=== PATIENT | male | born 1935 | race Caucasian/White ===

== ENCOUNTER 2018-08-09 08:54 | Emergency (ER) | payer BC, MEDICARE, OTHER ==
--- OUTSIDE RECORDS SUMMARY | 2018-08-09 09:15 | XMS REPORT ---
:1935 External Reference #:[id number] Author Organization [facility] Address [address], [address] [place] [address] Phone [phone] Care Team Providers Name Role Phone Cintia Dominguez MD Care Team Information Bar Host Unavailable Cintia Dominguez MD Primary Care Physician Unavailable Payers Type Date Identification Numbers Payment Provider Subscriber Medicare Primary Policy Number: [id number] Medicare Wale Mcnamara PayID: [id number] [address] [place] [address] [facility] Policy Number: [id number] [facility] Heather Mcnamara PayID: [id number] [address] [place] [address] Problems Date Description Provider Status Onset: 02/03/2013 Palpitations Everette Stevens MD, PhD Active Onset: 03/21/2018 Immunization Cintia Dominguez MD Active Onset: 03/21/2018 Hyperlipidemia Cintia Dominguez MD Active Onset: 02/01/2018 Acute bronchitis Yaniv Camejo M.D. Active Onset: 09/10/2017 Benign prostatic hypertrophy with Leah Wilson M.D. Active outflow obstruction Onset: 09/02/2017 Genaro hematuria Leah Wilson M.D. Active Onset: 08/31/2017 Hernia of anterior abdominal wall Fer Flores MD,FACS Active without obstruction AND without gangrene Onset: 07/19/2017 Electrocardiogram abnormal Dallas Laguerre M.D., Active FACC Onset: 07/30/2016 Cardiomyopathy, unspecified Dallas M. Davidenko, M.D., Active FACC Onset: 07/30/2016 Preoperative cardiovascular Dallas Laguerre M.D., Active examination FACC Onset: 06/01/2016 Left bundle branch block Dallas Laguerre M.D., Active FACC Onset: 05/10/2015 Benign essential hypertension Dallas Laguerre M.D., Active FACC Family History Date Family Member(s) Problem(s) Comments General No known family history of CAD. 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 Independent with all ADL's Cigarette Use 23 Years Quit Smokeless Tobacco Never Used Smokeless Tobacco ETOH Use Drinks 2 Alcoholic Beverages Per Day Smoking Patient is a former smoker Recreational Drug Use Marijuana Daily Caffeine Consumes on average 3 cups of regular coffee per day Daily Caffeine Consumes on average 3 cups of hot tea per day Allergies, Adverse Reactions, Alerts Date Description Reaction Status Severity Comments 01/31/2013 NKDA active Medications Medication Date Status Form Strength Qnty SIG Indications Ordering Provider Fleet Enema 07/07 Active Enema 7- 133ml 1 unit per K92.1 8ML rectum Alejo, once at MD night and once in morning Omeprazole 06/20 Active Capsules 40mg 30cap Take one R12 [place]in[place] DR jovan Chappell, MS, morning [employer]ERK-C, CNM (per pt. take bid at present) Drysol 12/14 Active Solution 20% 60ml apply to affected MD Angelica area every day Levocetirizine 04/07 Active Tablets 5mg 90tab 1 tab by Cintia Dihydrochloride s mouth MD Angelica daily as needed Benadryl Allergy 02/05 Active Capsules 25mg 60cap 2 tabs po Cintia s at hs MD Angelica Sumatriptan 07/15 Active Tablets 25mg 180ta one by Cintia Succinate bs mouth at MD Angelica onset of headache prodromal symptoms may repeat dose in 1 hour if needed Dicyclomine HCL 07/15 Active Capsules 10mg 360ca 1 cap by Cintia /2015 ps mouth MD Angelica every 6 h as needed for abdominal pain Metoprolol Active Tablets 50mg 90tab 1 tab by R00.2 Cintia Succinate ER /0000 ER 24HR s mouth MD Angelica every day Aspirin Active Tablets 325mg as needed Unknown DR Ipratropium Active Solution 0.03% [place] 2 Unknown [place] Sprays In Each Nostril Every Day prn Tamsulosin HCL Active Capsules 0.4mg 90cap take one Cintia s capsule by MD Angelica mouth every day Fish Oil Active Capsules 600mg 1 cap by Unknown mouth daily Metamucil Free & Active Powder 43% 1 table Unknown Natural spoon with 12 ounces water daily per pt as needed Doxycycline 04/07 Hx Capsules 100mg 2caps 2 cap by Cintia Monohydrate mouth once MD Angelica - 06/17 Cefuroxime Axetil 02/01 Hx Tablets 500mg 14tab 1 tab by J20.9 Yaniv s mouth Nell, - twice a M.D. Omeprazole 07/08 Hx Capsules 20mg 90cap [address] aldana every day Yumiko Dhillon MD 06/20 Lidocaine Viscous 07/08 Hx Solution 2% 600ml 1 unit apply to Yumiko Dhillon MD 08/31 area a day as needed Citroma 06/15 Hx Solution 1.745GM/3 296ml drink 1 K62.5 0ML bottle at Alejo 12pm (noon)the day before the procedure Dulcolax 06/15 Hx Tablets 5mg 4tabs [address] dona Dhillon 8pm the MD day before the procedure Golytely 06/15 Hx Solution 236gm 4000m drink half Rec l the Alejo evening before and half the morning of the procedure (1 cup every 10') Omeprazole 04/07 Hx Capsules 40mg 1 by mouth Cintia every day MD Angelica - 07/08 Azelastine HCL 12/14 Hx Solution 0.1% 30ml 1-2 sprays Cintia (Nasal) in both AngelicaMD jeramie - nasal 04/07 as needed Ventolin HFA 09/16 Hx Aerosol 108(90Bas 8gm 1-2 puffs e) every 4-6 MD Angelica mcg/Act hours as needed for cough and shortness of breath Levocetirizine 07/15 Hx Tablets 5mg 90tab 1 tab by Cintia Dihydrochlor s mouth MD Angelica - daily 04/07 Metoprolol 09/14 Hx Tablets 50mg 180ta 1/2 po qd 785.1 Everette L Succinate ER ER 24HR bs MD Hilda, PhD Aspirin Ec 02/03 Hx Tablets 325mg 1 po as Everette L DR Dong Stevens MD, PhD Metoprolol 02/03 Hx Tablets 25mg 90tab 1 po qd 785.1 Everette L Succinate ER 24HR s MD Hilda, - PhD 09/14 Omeprazole Hx Capsules 20mg 90cap 1 by mouth Cintia /0000 DR s every day MD Angelica - 04/07 Viagra Hx Tablets 25mg prn Unknown /0000 Finasteride Hx Tablets 5mg 30tab 1 po qd Unknown /0000 s Tamsulosin HCL Hx Capsules 0.4mg po qd Unknown /0000 Levocetirizine Hx Tablets 5mg po qd Unknown Dihydrochloride /0000 Aleve Hx Capsules 220mg prn Unknown /0000 - 06/20 Benadryl Hx Capsules 25mg 2 tabs po Unknown /0000 at hs - 02/05 Multivitamins Hx Tablets 1 po qd Unknown /0000 Fish Oil 00 Hx Capsules 1200mg by mouth Unknown /0000 qd Flomax 00 Hx Capsules 0.4mg by mouth Unknown /0000 every day - 07/15 Tamsulosin HCL Hx Capsules 0.4mg 90cap 1 caps by Cintia /0000 s mouth MD Angelica - every day 04/07 Sumatriptan Hx Tablets 25mg one by Unknown Succinate /0000 mouth at onset of headache prodromal symptoms may repeat dose in 1 hour if needed Immunizations CPT Code Status Date Vaccine Lot # [id number] Given 03/21/2018 Tdap injection [id number] Given 09/15/2017 Influenza Vaccine Split Virus Preservative Free Im [id number] Use [id number] Given 09/16/2016 Influenza Vaccine (Fluzone) Age 3 And Older [id number] Vital Signs Date Vital Result Comment 07/07/2018 BP Systolic Sitting Left Arm 145 mmHg BP Diastolic Sitting Left Arm 81 mmHg Heart Rate 66 /min Respiratory Rate 16 /min Height 68 inches 5'8" Weight 209.00 lb BMI (Body Mass Index) 31.8 kg/m2 BSA (Body Surface Area) 2.08 m2 [place] body weight in kilograms 70 O2 % BldC Oximetry 95 % 06/17/2018 BP Systolic Sitting Left Arm 132 mmHg BP Diastolic Sitting Left Arm 74 mmHg Body Temperature 98.1 F Heart Rate 63 /min Respiratory Rate 18 /min Height 68 inches 5'8" Weight 210.00 lb BMI (Body Mass Index) 31.9 kg/m2 BSA (Body Surface Area) 2.09 m2 [place] body weight in kilograms 70 O2 % BldC Oximetry 98 % Ra 03/22/2018 BP Systolic Sitting Left Arm 158 mmHg BP Diastolic Sitting Left Arm 66 mmHg Body Temperature 97.9 F Heart Rate 64 /min Respiratory Rate 14 /min Weight 212.00 lb O2 % BldC Oximetry 96 % Pain Level 0 03/21/2018 BP Systolic Sitting Right Arm 122 mmHg BP Diastolic Sitting Right Arm 69 mmHg Heart Rate 54 /min Respiratory Rate 20 /min Height 68 inches 5'8" Weight 208.00 lb BMI (Body Mass Index) 31.6 kg/m2 BSA (Body Surface Area) 2.08 m2 [place] body weight in kilograms 70 02/01/2018 BP Systolic Sitting Right Arm 120 mmHg manual BP Diastolic Sitting Right Arm 64 mmHg manual Body Temperature 97.6 F Heart Rate 56 /min Respiratory Rate 18 /min Height 68 inches 5'8" Weight 209.00 lb BMI (Body Mass Index) 31.8 kg/m2 BSA (Body Surface Area) 2.08 m2 [place] body weight in kilograms 70 O2 % BldC Oximetry 94 % Ra 09/15/2017 BP Systolic 146 mmHg BP Diastolic 78 mmHg Heart Rate 57 /min Height 68 inches 5'8" Weight 210.38 lb BMI (Body Mass Index) 32.0 kg/m2 BSA (Body Surface Area) 2.09 m2 [place] body weight in kilograms 70 09/10/2017 BP Systolic 151 mmHg BP Diastolic 75 mmHg Body Temperature 97.0 F 36.1c Heart Rate 66 /min Respiratory Rate 20 /min O2 % BldC Oximetry 94 % 09/02/2017 BP Systolic 123 mmHg BP Diastolic 66 mmHg Body Temperature 97.3 F 36.3c Heart Rate 69 /min Respiratory Rate 18 /min Height 68 inches 5'8" Weight 212.25 lb BMI (Body Mass Index) 32.3 kg/m2 BSA (Body Surface Area) 2.10 m2 [place] body weight in kilograms 70 O2 % BldC Oximetry 96 % 08/31/2017 BP Systolic 118 mmHg BP Diastolic 78 mmHg Height 68 inches 5'8" Weight 211.00 lb BMI (Body Mass Index) 32.1 kg/m2 BSA (Body Surface Area) 2.09 m2 [place] body weight in kilograms 70 08/25/2017 BP Systolic Sitting Right Arm 106 mmHg BP Diastolic Sitting Right Arm 80 mmHg Body Temperature 97.5 F Heart Rate 43 /min Height 68 inches 5'8" Weight 207.00 lb BMI (Body Mass Index) 31.5 kg/m2 BSA (Body Surface Area) 2.07 m2 [place] body weight in kilograms 70 07/19/2017 BP Systolic Sitting Left Arm 132 mmHg BP Diastolic Sitting Left Arm 72 mmHg Heart Rate 54 /min Respiratory Rate 16 /min Height 68 inches 5'8" Weight 209.00 lb BMI (Body Mass Index) 31.8 kg/m2 BSA (Body Surface Area) 2.08 m2 [place] body weight in kilograms 70 07/08/2017 BP Systolic Sitting Left Arm 122 mmHg BP Diastolic Sitting Left Arm 80 mmHg Heart Rate 76 /min Respiratory Rate 16 /min Height 68 inches 5'8" Weight 210.00 lb BMI (Body Mass Index) 31.9 kg/m2 BSA (Body Surface Area) 2.09 m2 [place] body weight in kilograms 70 06/15/2017 BP Systolic Lying Down Resting Right Arm 130 mmHg BP Diastolic Lying Down Resting Right Arm 82 mmHg Heart Rate 46 /min Respiratory Rate 16 /min Height 68 inches 5'8" Weight 209.00 lb BMI (Body Mass Index) 31.8 kg/m2 BSA (Body Surface Area) 2.08 m2 [place] body weight in kilograms 70 04/07/2017 BP Systolic 124 mmHg irregular BP Diastolic 68 mmHg irregular Heart Rate 58 /min irregular Respiratory Rate 16 /min Height 68 inches 5'8" Weight 208.00 lb with shoes BMI (Body Mass Index) 31.6 kg/m2 BSA (Body Surface Area) 2.08 m2 [place] body weight in kilograms 70 O2 % BldC Oximetry 94 % 09/16/2016 BP Systolic 112 mmHg BP Diastolic 66 mmHg Heart Rate 60 /min Height 68 inches 5'8" Weight 213.00 lb BMI (Body Mass Index) 32.4 kg/m2 BSA (Body Surface Area) 2.10 m2 07/30/2016 BP Systolic Sitting Right Arm 110 mmHg BP Diastolic Sitting Right Arm 76 mmHg Heart Rate 56 /min Height 68 inches 5'8" Weight 212.00 lb BMI (Body Mass Index) 32.2 kg/m2 BSA (Body Surface Area) 2.09 m2 07/22/2016 BP Systolic 118 mmHg BP Diastolic 72 mmHg Body Temperature 96.7 F Height 68 inches 5'8" Weight 208.00 lb BMI (Body Mass Index) 31.6 kg/m2 BSA (Body Surface Area) 2.08 m2 O2 % BldC Oximetry 98 % 07/15/2016 BP Systolic Sitting Right Arm 124 mmHg BP Diastolic Sitting Right Arm 70 mmHg Respiratory Rate 90 /min Height 68 inches 5'8" Weight 214.38 lb BMI (Body Mass Index) 32.6 kg/m2 BSA (Body Surface Area) 2.10 m2 O2 % BldC Oximetry 98 % 06/01/2016 BP Systolic Sitting Right Arm 122 mmHg BP Diastolic Sitting Right Arm 70 mmHg Heart Rate 53 /min Respiratory Rate 16 /min Height 68 inches 5'8" Weight 213.00 lb BMI (Body Mass Index) 32.4 kg/m2 BSA (Body Surface Area) 2.10 m2 05/10/2015 BP Systolic Sitting Left Arm 130 mmHg BP Diastolic Sitting Left Arm 72 mmHg Heart Rate 68 /min Respiratory Rate 14 /min Height 68 inches 5'8" Weight 207.00 lb BMI (Body Mass Index) 31.5 kg/m2 BSA (Body Surface Area) 2.07 m2 11/01/2014 BP Systolic Sitting Right Arm 114 mmHg BP Diastolic Sitting Right Arm 62 mmHg Heart Rate 54 /min Respiratory Rate 16 /min Height 68 inches 5'8" Weight 205.00 lb BMI (Body Mass Index) 31.2 kg/m2 BSA (Body Surface Area) 2.07 m2 04/26/2014 BP Systolic Sitting Left Arm 112 mmHg BP Diastolic Sitting Left Arm 72 mmHg Heart Rate 62 /min Respiratory Rate 16 /min Height 68 inches 5'8" Weight 201.00 lb BMI (Body Mass Index) 30.6 kg/m2 BSA (Body Surface Area) 2.05 m2 12/06/2013 BP Systolic Sitting Right Arm 110 mmHg BP Diastolic Sitting Right Arm 68 mmHg Heart Rate 60 /min Respiratory Rate 16 /min Height 68 inches 5'8" Weight 203.00 lb BMI (Body Mass Index) 30.9 kg/m2 BSA (Body Surface Area) 2.06 m2 10/30/2013 BP Systolic Sitting Right Arm 134 mmHg BP Diastolic Sitting Right Arm 80 mmHg Heart Rate 60 /min Respiratory Rate 16 /min Height 68 inches 5'8" Weight 205.00 lb BMI (Body Mass Index) 31.2 kg/m2 BSA (Body Surface Area) 2.07 m2 09/14/2013 BP Systolic Sitting Left Arm 144 mmHg BP Diastolic Sitting Left Arm 64 mmHg Heart Rate 72 /min Respiratory Rate 16 /min Height 68 inches 5'8" Weight 209.00 lb BMI (Body Mass Index) 31.8 kg/m2 BSA (Body Surface Area) 2.08 m2 03/16/2013 BP Systolic Sitting Right Arm 138 mmHg BP Diastolic Sitting Right Arm 60 mmHg Heart Rate 70 /min Respiratory Rate 16 /min Height 68 inches 5'8" Weight 200.00 lb BMI (Body Mass Index) 30.4 kg/m2 BSA (Body Surface Area) 2.04 m2 02/03/2013 BP Systolic Sitting Right Arm 140 mmHg BP Diastolic Sitting Right Arm 72 mmHg Heart Rate 70 /min Respiratory Rate 16 /min Height 68 inches 5'8" Weight 197.00 lb BMI (Body Mass Index) 30.0 kg/m2 BSA (Body Surface Area) 2.03 m2 Results Test Date Test Result H/L Range Note Laboratory test finding 07/07/2018 Lipase 148 U/L 56-289 1 Celiac Disease Comp AB Profile 07/07/2018 Immunoglobulin A 205 mg/dL 61- 437 1, 2 Antigliadin Abs, IgG 2 units 0-19 1, 3 Antigliadin Abs, IgA 5 units 0-19 1, 4 Endomysial IgA Antibody Negative Negative 1 t-Transglutaminase IgA <2 U/mL 0-3 1, 5 t-Transglutaminase IgG <2 U/mL 0-5 1, 6 Laboratory test finding 07/07/2018 Sedimentation Rate 28 mm/hr High 0-20 1, 7 CBS W/Automated Diff 06/17/2018 White Blood Count 6.1 K/uL 3.4-10.5 1 Red Blood Count 4.60 M/uL 4.20-5.80 1 Hemoglobin 14.5 gm/dL 12.8-17.0 1 Hematocrit 42.4 % 38.0-48.0 1 Mean Cell Volume 92.2 fl 80.0-96.0 1 Mean Corpuscular HGB 31.5 pg 27.0-33.0 1 Mean Corpuscular HGB Conc 34.2 g/dL 31.7-36.0 1 Platelet Count 207 K/uL 155-360 1 Red Cell Distri Width SD 46.7 fl 36-51 1 Red Cell Distri Width %CV 14.0 % 11.6-15.8 1 Mean Platelet Volume 9.9 fL 6.6-10.6 1 Neut% 49.3 % 33.0-73.0 1 Lymph % 36.4 % 20.0-42.0 1 [place] % 11.3 % High 0.0-10.0 1 Eo% 2.8 % 0.0-6.6 1 Bas% 0.2 % 0.0-1.1 1 Neut# 3.03 K/uL 1.8-7.0 1 Lymph # 2.23 K/uL 1.0-4.0 1 [place] # 0.69 K/uL 0.0-0.8 1 Eos # 0.17 K/uL 0.0-0.5 1 Baso # 0.01 K/uL 0.0-0.1 1 Comprehensive Metabolic Panel 06/17/2018 Glucose 107 mg/dL High 74-106 1 BUN 25 mg/dL High 7-18 1 Creatinine 1.1 mg/dL 0.6-1.3 1 Glom Filtration Rate, Estimate >60 mL/min >60 1 If >60 mL/min >60 1, 8 BUN/Creat 22.7 ratio 1 Sodium 144 mmol/L 136-145 1 Potassium 4.4 mmol/L 3.5-5.1 1 Chloride 111 mmol/L High 98-107 1 Carbon Dioxide 25 mmol/L 21-32 1 Anion Gap 8 mEq/L 8-16 1 Calcium 8.9 mg/dL 8.5-10.1 1 Total Protein 7.6 g/dL 6.4-8.2 1 Albumin 3.9 g/dL 3.4-5.0 1 Globulin 3.7 g/dL 1.9-4.3 1 Alb/Glob 1.1 ratio 1 Bilirubin,Total 0.4 mg/dL 0.2-1.0 1 Sgot/Ast 20 U/L 15-37 1 SGPT/Alt 19 U/L 12-78 1 Alkaline Phosphatase 62 U/L 45-117 1 Protime 06/17/2018 Protime 13.7 seconds 12.0-14.4 1 Inr 1.1 0.9-1.1 1, 9 Laboratory test finding 06/17/2018 Act Partial 26.8 seconds 23.4-35.0 1 , 10 Thrombo Time Comprehensive Metabolic 03/11/2018 Glucose 104 mg/dL 74-106 11 Panel BUN 20 mg/dL High 7-18 11 Creatinine 1.0 mg/dL 0.6-1.3 11 Glom Filtration Rate, Estimate >60 mL/min >60 11 If >60 mL/min >60 11, 12 BUN/Creat 20.0 ratio 11 Sodium 140 mmol/L 136-145 11 Potassium 4.1 mmol/L 3.5-5.1 11 Chloride 108 mmol/L High 98-107 11 Carbon Dioxide 24 mmol/L 21-32 11 Anion Gap 8 mEq/L 8-16 11 Calcium 8.7 mg/dL 8.5-10.1 11 Total Protein 7.5 g/dL 6.4-8.2 11 Albumin 3.7 g/dL 3.4-5.0 11 Globulin 3.8 g/dL 1.9-4.3 11 Alb/Glob 1.0 ratio 11 Bilirubin,Total 0.5 mg/dL 0.2-1.0 11 Sgot/Ast 19 U/L 15-37 11 SGPT/Alt 18 U/L 12-78 11 Alkaline Phosphatase 51 U/L 45-117 11 LDL Cholesterol Profile 03/11/2018 Cholesterol 148 mg/dL <200 11, 13 Triglycerides 77 mg/dL <150 11, 14 HDL Cholesterol 55 mg/dL >40 11, 15 LDL-Cholesterol 78 mg/dL < 100 11, 16 CBS W/Automated Diff 03/11/2018 White Blood Count 5.9 K/uL 3.4-10.5 11 Red Blood Count 4.71 M/uL 4.20-5.80 11 Hemoglobin 14.8 gm/dL 12.8-17.0 11 Hematocrit 42.7 % 38.0-48.0 11 Mean Cell Volume 90.7 fl 80.0-96.0 11 Mean Corpuscular HGB 31.4 pg 27.0-33.0 11 Mean Corpuscular HGB Conc 34.7 g/dL 31.7-36.0 11 Platelet Count 186 K/uL 155-360 11 Red Cell Distri Width SD 45.2 fl 36-51 11 Red Cell Distri Width %CV 14.1 % 11.6-15.8 11 Mean Platelet Volume 10.4 fL 6.6-10.6 11 Neut% 45.5 % 33.0-73.0 11 Lymph % 40.4 % 20.0-42.0 11 [place] % 10.5 % High 0.0-10.0 11 Eo% 3.4 % 0.0-6.6 11 Bas% 0.2 % 0.0-1.1 11 Neut# 2.70 K/uL 1.8-7.0 11 Lymph # 2.39 K/uL 1.0-4.0 11 [place] # 0.62 K/uL 0.0-0.8 11 Eos # 0.20 K/uL 0.0-0.5 11 Baso # 0.01 K/uL 0.0-0.1 11 Laboratory test finding 09/02/2017 Prostate Specific 1.82 ng/mL < 4.0 17 , 18 Antigen Slide Review (SEE NOTE) 17, 19 LDL Cholesterol Profile 09/02/2017 Cholesterol 136 mg/dL <200 17, 20 Triglycerides 174 mg/dL High <150 17, 21 HDL Cholesterol 50 mg/dL >40 17, 22 LDL-Cholesterol 51 mg/dL < 100 17, 23 CBS W/Automated Diff 09/02/2017 White Blood Count 5.4 K/uL 3.4-10.5 17 Red Blood Count 4.63 M/uL 4.20-5.80 17 Hemoglobin 14.5 gm/dL 12.8-17.0 17 Hematocrit 42.5 % 38.0-48.0 17 Mean Cell Volume 91.8 fl 80.0-96.0 17 Mean Corpuscular HGB 31.3 pg 27.0-33.0 17 Mean Corpuscular HGB Conc 34.1 g/dL 31.7-36.0 17 Platelet Count 202 K/uL 150-400 17 Red Cell Distri Width SD 45.2 fl 36-51 17 Red Cell Distri Width %CV 13.8 % 11.6-15.8 17 Mean Platelet Volume 9.6 fL 6.6-10.6 17 Neut% 59.8 % 33.0-73.0 17 Lymph % 25.9 % 20.0-42.0 17 [place] % 11.5 % High 0.0-10.0 17 Eo% 2.6 % 0.0-6.6 17 Bas% 0.2 % 0.0-1.1 17 Neut# 3.24 K/uL 1.8-7.0 17 Lymph # 1.40 K/uL 1.0-4.0 17 [place] # 0.62 K/uL 0.0-0.8 17 Eos # 0.14 K/uL 0.0-0.5 17 Baso # 0.01 K/uL 0.0-0.1 17 Comprehensive Metabolic Panel 09/02/2017 Glucose 114 mg/dL High 74-106 17 BUN 22 mg/dL High 7-18 17 Creatinine 1.2 mg/dL 0.6-1.3 17 Glom Filtration Rate, Estimate >60 mL/min >60 17 If >60 mL/min >60 17, 24 BUN/Creat 18.3 ratio 17 Sodium 140 mmol/L 136-145 17 Potassium 4.4 mmol/L 3.5-5.1 17 Chloride 109 mmol/L High 98-107 17 Carbon Dioxide 25 mmol/L 21-32 17 Anion Gap 6 mEq/L Low 8-16 17 Calcium 8.5 mg/dL 8.5-10.1 17 Total Protein 7.2 g/dL 6.4-8.2 17 Albumin 3.4 g/dL 3.4-5.0 17 Globulin 3.8 g/dL 1.9-4.3 17 Alb/Glob 0.9 ratio 17 Bilirubin,Total 0.4 mg/dL 0.2-1.0 17 Sgot/Ast 15 U/L 15-37 17 SGPT/Alt 18 U/L 12-78 17 Alkaline Phosphatase 58 U/L 45-117 17 Ua Routine 08/25/2017 Urine Color YELLOW Yellow Urine Clarity CLEAR Clear Urine Glucose - Dipstick NEGATIVE mg/dL Negative Urine Bilirubin - Dipstick NEGATIVE Negative Urine Ketone NEGATIVE mg/dL Negative Urine Specific [place] 1.020 1.010-1.030 Urine Blood SMALL Negative Urine PH 5.5 Low 6.5-7.5 Urine Protein - Dipstick NEGATIVE mg/dL Negative Urine Urobilinogen - Dipstick 0.2 E.U./dL 0.2-1.0 Urine Nitrite - Dipstick NEGATIVE Negative Urine Leuk Esterase NEGATIVE Negative Urine RBC 5-10 rbc/hpf High 0-2 Urine WBC 0-2 wbc/hpf 0-7 Urine Epithelial Cells VERY FEW /lpf None Seen Urine Bacteria FEW None Seen Source: URINE, CLEAN CAT <SEE NOTE> 25 Throat Culture Complete 04/08/2017 Throat Culture NORMAL THROAT FL 26, 27 Complete <SEE NOTE> Comprehensive Metabolic 09/25/2016 Glucose 97 mg/dL 74-106 28 Panel BUN 23 mg/dL High 7-18 28 Creatinine 1.1 mg/dL 0.6-1.3 28 Glom Filtration Rate, Estimate >60 mL/min >60 28 If >60 mL/min >60 28, 29 BUN/Creat 20.9 ratio 28 Sodium 143 mmol/L 136-145 28 Potassium 4.2 mmol/L 3.5-5.1 28 Chloride 111 mmol/L High 98-107 28 Carbon Dioxide 24 mmol/L 21-32 28 Anion Gap 8 mEq/L 8-16 28 Calcium 9.0 mg/dL 8.5-10.1 28 Total Protein 7.5 g/dL 6.4-8.2 28 Albumin 3.7 g/dL 3.4-5.0 28 Globulin 3.8 g/dL 1.9-4.3 28 Alb/Glob 1.0 ratio 28 Bilirubin,Total 0.5 mg/dL 0.2-1.0 28 Sgot/Ast 17 U/L 15-37 28 SGPT/Alt 17 U/L 12-78 28 Alkaline Phosphatase 56 U/L 45-117 28 CBS W/Automated Diff 09/25/2016 White Blood Count 4.8 K/uL 3.4-10.5 28 Red Blood Count 4.76 M/uL 4.20-5.80 28 Hemoglobin 14.5 gm/dL 12.8-17.0 28 Hematocrit 43.1 % 38.0-48.0 28 Mean Cell Volume 90.5 fl 80.0-96.0 28 Mean Corpuscular HGB 30.5 pg 27.0-33.0 28 Mean Corpuscular HGB Conc 33.6 g/dL 31.7-36.0 28 Platelet Count 191 K/uL 150-400 28 Red Cell Distri Width SD 43.9 fl 36-51 28 Red Cell Distri Width %CV 13.8 % 11.6-15.8 28 Mean Platelet Volume 10.3 fL 6.6-10.6 28 Neut% 49.1 % 33.0-73.0 28 Lymph % 35.9 % 17.0-56.0 28 [place] % 10.6 % High 0.0-10.0 28 Eo% 4.0 % 0.0-5.0 28 Bas% 0.4 % 0.1-1.0 28 Neut# 2.35 K/uL 1.8-7.0 28 Lymph # 1.72 K/uL Low 1.8-7.0 28 [place] # 0.51 K/uL 0.0-0.8 28 Eos # 0.19 K/uL 0.0-0.5 28 Baso # 0.02 K/uL Low 0.1-0.2 28 LDL Cholesterol Profile 09/25/2016 Cholesterol 161 mg/dL <200 28, 30 Triglycerides 84 mg/dL <150 28, 31 HDL Cholesterol 56 mg/dL >40 28, 32 LDL-Cholesterol 88 mg/dL < 100 28, 33 Glycohemoglobin A1c 09/25/2016 Glycohemoglobin (A1c) 5.6 % 4.2-6.3 28, 34 eAG 114 mg/dL 28 Laboratory test finding 09/25/2016 Prostate Specific 1.69 ng/mL < 4.0 28 , 35 Antigen Comprehensive Metabolic 06/22/2016 Glucose 120 mg/dL High 74-106 Panel BUN 20 mg/dL High 7-18 Creatinine 1.1 mg/dL 0.6-1.3 Glom Filtration Rate, Estimate >60 mL/min >60 If >60 mL/min >60 36 BUN/Creat 18.1 ratio Sodium 143 mmol/L 136-145 Potassium 3.9 mmol/L 3.5-5.1 Chloride 110 mmol/L High 98-107 Carbon Dioxide 24 mmol/L 21-32 Anion Gap 9 mEq/L 8-16 Calcium 8.2 mg/dL Low 8.5-10.1 Total Protein 7.1 g/dL 6.4-8.2 Albumin 3.4 g/dL 3.4-5.0 Globulin 3.7 g/dL 1.9-4.3 Alb/Glob 0.9 ratio Bilirubin,Total 0.3 mg/dL 0.2-1.0 Sgot/Ast 20 U/L 15-37 SGPT/Alt 21 U/L 12-78 Alkaline Phosphatase 59 U/L 45-117 Laboratory test finding 06/22/2016 CK 67 U/L 39-308 Troponin-I < 0.015 ng/mL 37 CBC W/Automated Diff 06/22/2016 White Blood Count 5.5 K/uL 3.4-10.5 Red Blood Count 4.32 M/uL 4.20-5.80 Hemoglobin 13.5 gm/dL 12.8-17.0 Hematocrit 39.8 % 38.0-48.0 Mean Cell Volume 92.1 fl 80.0-96.0 Mean Corpuscular HGB 31.3 pg 27.0-33.0 Mean Corpuscular HGB Conc 33.9 g/dL 31.7-36.0 Platelet Count 196 K/uL 150-400 Red Cell Distri Width SD 44.4 fl 36-51 Red Cell Distri Width %CV 13.6 % 11.6-15.8 Mean Platelet Volume 9.7 fL 6.6-10.6 Neut% 52.4 % 33.0-73.0 Lymph % 33.3 % 17.0-56.0 [place] % 9.9 % 0.0-10.0 Eo% 4.2 % 0.0-5.0 Bas% 0.2 % 0.1-1.0 Neut# 2.86 K/uL 1.8-7.0 Lymph # 1.82 K/uL 1.8-7.0 [place] # 0.54 K/uL 0.0-0.8 Eos # 0.23 K/uL 0.0-0.5 Baso # 0.01 K/uL Low 0.1-0.2 1 K92.1 2 Performed at: RN - [facility] [address] [id number] Orthopedic Rn: Moraima Macdonald MD, Phone: [phone] 3 Negative 0 - 19 Weak Positive 20 - 30 Moderate to Strong Positive >30 4 Negative 0 - 19 Weak Positive 20 - 30 Moderate to Strong Positive >30 5 Negative 0 - 3 Weak Positive 4 - 10 Positive >10 Tissue Transglutaminase (tTG) has been identified as the endomysial antigen. Studies have demonstr- ated that endomysial IgA antibodies have over 99% specificity for gluten sensitive enteropathy. 6 Negative 0 - 5 Weak Positive 6 - 9 Positive >9 7 Method: Sediplast Modified Westergren 8 Note: Persistent reduction for 3 months or more in an eGFR <60 mL/min/1.73 m2 defines CKD. Patients with eGFR values >/=60 mL/min/1.73 m2 may also have CKD if evidence of persistent proteinuria is present. The original MDRD equation for estimated GFR is not valid for patients less than 18 years of age. Additional information may be found at [email or web address]. 9 THERAPEUTIC INR RANGE: 2.0 - 3.0 DVT, Pulmonary embolus, prophylaxis against venous thrombosis or systemic embolization in high risk patients. 2.5 - 3.5 Mechanical heart valves 10 Is patient on heparin protocol? N Is patient on anticoagulants? None 11 E78.5 N40.1 12 Note: Persistent reduction for 3 months or more in an eGFR <60 mL/min/1.73 m2 defines CKD. Patients with eGFR values >/=60 mL/min/1.73 m2 may also have CKD if evidence of persistent proteinuria is present. The original MDRD equation for estimated GFR is not valid for patients less than 18 years of age. Additional information may be found at www.kdoqi.org. 13 Reference Guidelines*: Desirable: ........... < 200 mg/dL Borderline High: ..... 200-239 mg/dL High: ................ >=240 mg/dL * The National Cholesterol Education Program (NCEP) 14 Reference Guidelines*: Normal: ............. < 150 mg/dL Borderline High: .... 150-199 mg/dL High: ............... 200-499 mg/dL Very High: .......... > 500 mg/dL * Source: National Cholesterol Education Program (NCEP) 15 Reference Guidelines*: Low HDL: ..... < 40 mg/dL Normal: ..... 40-60 mg/dL Desirable: ... > 60 mg/dL *The National Cholesterol Education Program(NCEP) 16 Reference Guidelines*: Optimal:........... <100 mg/dL Near Optimal....... 100-129 mg/dL Borderline High.... 130-159 mg/dL High............... 160-189 mg/dL Very High.......... >=190 mg/dL * Source: National Cholesterol Education Program (NCEP) 17 I10,N40.0,J44.9.I42.9 18 THIS ASSAY IS NOT INTENDED A CANCER SCREENING TEST The concentration of PSA in a given specimen, determined with assays from different manufacturers, can vary due to differences in assay methods and reagent specificity. Values obtained from different assay methods cannot be used interchangeably. Method: [employer] [place] Chemiluminescent immunoassay. 19 Instrument flagged sample for slide review. Less than 10% Bands seen, no other immature WBC's seen. RBC morphology essentially normal. Platelet estimate=NormaL 20 Reference Guidelines*: Desirable: ........... < 200 mg/dL Borderline High: ..... 200-239 mg/dL High: ................ >=240 mg/dL * The National Cholesterol Education Program (NCEP) 21 Reference Guidelines*: Normal: ............. < 150 mg/dL Borderline High: .... 150-199 mg/dL High: ............... 200-499 mg/dL Very High: .......... > 500 mg/dL * Source: National Cholesterol Education Program (NCEP) 22 Reference Guidelines*: Low HDL: ..... < 40 mg/dL Normal: ..... 40-60 mg/dL Desirable: ... > 60 mg/dL *The National Cholesterol Education Program(NCEP) 23 Reference Guidelines*: Optimal:........... <100 mg/dL Near Optimal....... 100-129 mg/dL Borderline High.... 130-159 mg/dL High............... 160-189 mg/dL Very High.......... >=190 mg/dL * Source: National Cholesterol Education Program (NCEP) 24 Note: Persistent reduction for 3 months or more in an eGFR <60 mL/min/1.73 m2 defines CKD. Patients with eGFR values >/=60 mL/min/1.73 m2 may also have CKD if evidence of persistent proteinuria is present. The original MDRD equation for estimated GFR is not valid for patients less than 18 years of age. Additional information may be found at www.kdoqi.org. 25 URINE, CLEAN CATCH 26 J30.9 J02.9 27 NORMAL THROAT AUDI 28 I42.9 I10 N40.0 I44.7 29 Note: Persistent reduction for 3 months or more in an eGFR <60 mL/min/1.73 m2 defines CKD. Patients with eGFR values >/=60 mL/min/1.73 m2 may also have CKD if evidence of persistent proteinuria is present. The original MDRD equation for estimated GFR is not valid for patients less than 18 years of age. Additional information may be found at www.kdoqi.org. 30 Reference Guidelines*: Desirable: ........... < 200 mg/dL Borderline High: ..... 200-239 mg/dL High: ................ >=240 mg/dL * The National Cholesterol Education Program (NCEP) 31 Reference Guidelines*: Normal: ............. < 150 mg/dL Borderline High: .... 150-199 mg/dL High: ............... 200-499 mg/dL Very High: .......... > 500 mg/dL * Source: National Cholesterol Education Program (NCEP) 32 Reference Guidelines*: Low HDL: ..... < 40 mg/dL Normal: ..... 40-60 mg/dL Desirable: ... > 60 mg/dL *The National Cholesterol Education Program(NCEP) 33 Reference Guidelines*: Optimal:........... <100 mg/dL Near Optimal....... 100-129 mg/dL Borderline High.... 130-159 mg/dL High............... 160-189 mg/dL Very High.......... >=190 mg/dL * Source: National Cholesterol Education Program (NCEP) 34 Elevated levels of HbA1c suggest the need for more aggressive treatment of glycemia. The [place] [employer] recommends that a primary goal of therapy should be a HbA1c of <7% and that physicians should re-evaluate the treatment regimen in patients with HbA1c values consistently >8%. 35 THIS ASSAY IS NOT INTENDED A CANCER SCREENING TEST The concentration of PSA in a given specimen, determined with assays from different manufacturers, can vary due to differences in assay methods and reagent specificity. Values obtained from different assay methods cannot be used interchangeably. Method: [employer] Chemiluminescent immunoassay. 36 Note: Persistent reduction for 3 months or more in an eGFR <60 mL/min/1.73 m2 defines CKD. Patients with eGFR values >/=60 mL/min/1.73 m2 may also have CKD if evidence of persistent proteinuria is present. The original MDRD equation for estimated GFR is not valid for patients less than 18 years of age. Additional information may be found at www.kdoqi.org. 37 0.0 - 0.045 ng/mL: Normal 0.046 - 0.5 ng/mL: Suggestive 0.6 - 1.5 ng/mL: Consistent Procedures Date CPT Code Description Status Comment 03/22/2018 89841 Measurement Post Voiding Completed Residual Urine By Ultrasound,Non-Imaging 03/22/2018 45030 complex uroflowmetry Completed electronic 09/10/2017 61944 Cystoscopy Completed 09/10/2017 60102 Measurement Post Voiding Completed Residual Urine By Ultrasound,Non-Imaging 09/10/2017 71296 complex uroflowmetry Completed electronic 07/05/2017 43041 Hemorrhoidectomy, single Completed ligature 07/05/2017 05021 Colonoscopy Completed 07/05/2017 68982 EGD With Biopsy Completed 06/15/2017 30636 Anoscopy Completed 10/05/2016 99955 Bronchospasm Provocation Completed Evaluation Multi Spirometric Determinati 10/05/2016 10155 Spirometry Completed 10/05/2016 24855 Spirometry Completed 09/25/2016 84229 Bronchospasm Provocation Completed Evaluation Multi Spirometric Determinati 07/30/2016 71485 EKG-Tracing And Report Completed 06/09/2016 70499 Echocardiogram Complete Completed 06/09/2016 69914 Holter Monitor 24HR Completed Inter/Report 06/01/2016 43999 EKG-Tracing And Report Completed 10/29/2014 28222 Echocardiogram Complete Completed 08/23/2014 Colonoscopy Completed Document: 08/23/08 - Op Report- Colonscopy & BX 02/19/2014 98548 Holter Monitor 24HR Completed Inter/Report 11/24/2013 25415 Holter Monitor 24HR Completed Inter/Report 10/30/2013 66586 EKG-Tracing And Report Completed 03/16/2013 76469 Holter Monitor 24HR Completed Inter/Report 02/03/2013 60839 EKG-Tracing And Report Completed 01/30/2013 98219 Echocardiogram Complete Completed 01/30/2013 33159 Holter Monitor 24HR Completed Inter/Report 11/16/2012 65605 ECHO Transthor[employer] Inc Completed Performance Continuous Electrocardio Mon Encounters Type Date Location Provider CPT E/M Dx Office Visit 06/17/2018 [place], [address] K92.1 3:30p BARRY MEANS N40.1 Office Visit 03/22/2018 8:30a Urology Leah Wilson M.D. 81824 R31.0 N40.1 Office Visit 03/21/2018 10:20a [place] [address] I10 E78.5 N40.1 K43.9 Z23 Office Visit 02/01/2018 3:00p Primary Care Office Yaniv Camejo 86994 J20.9 Ruperto Office Visit 09/15/2017 9:40a [place] [address] N40.1 I10 E78.5 Z23 Office Visit 09/10/2017 10:00a Urology Leah Wilson M.D. 44608 R31.0 N40.1 Office Visit 09/02/2017 9:30a Urology Leah Wilson M.D. 39685 R31.0 Office Visit 08/31/2017 11:00a Surgical Office Fer Flores MD,FACS 98717 K43.9 Office Visit 08/25/2017 3:40p [place] [address] K43.9 R31.9 Office Visit 07/19/2017 10:20a Cardiology Office Dallas Laguerre, 01904 I44.7 M.DGeorge, FACC R94.31 Office Visit 07/08/2017 2:45[place] [address] R12 K64.1 K57.30 Office Visit 06/15/2017 10:30[place] [address] R12 K62.5 Office Visit 04/07/2017 3:40p [place] [address] J30.9 J02.9 Office Visit 09/16/2016 11:20a [place] [address] I10 N40.0 D22.9 R19.7 R05 Z23 Office Visit 07/30/2016 11:20a Cardiology Office Dallas Laguerre, 56370 Z01.810 M.DGeorge, [facility] I44.7 I42.9 Office Visit 07/22/2016 8:40a [place] [address] I10 I44.7 M79.671 R00.2 Office Visit 07/15/2016 8:40a [place] [address] I10 I44.7 J30.9 Z96.642 N40.0 Office Visit 06/01/2016 10:20a Cardiology Office [place] Laguerre, 53909 R00.2 M.DGeorge, FACC I44.7 Office Visit 05/10/2015 10:30a Cardiology Office [place] Laguerre, 90903 785.1 M.DGeorge, FACC 401.1 Office Visit 11/01/2014 10:40a Cardiology [place] [address] 785.1 401.1 786.05 Office Visit 04/26/2014 1:10p Cardiology [place] [address] 785.1 401.1 Office Visit 12/06/2013 10:40a Cardiology [place] [address] 785.1 786.05 Office Visit 10/30/2013 11:40a [place] [address] 785.1 786.05 401.1 Office Visit 09/14/2013 2:50p Cardiology [place] [address] 785.1 786.05 401.1 Office Visit 03/16/2013 10:00a [place] [address] 785.1 786.05 Office Visit 02/03/2013 12:00p [place] [address] 786.51 427.89 785.1 Office Visit 01/30/2013 11:41a [place] [address] 427.89 Plan of Care Future Appointment(s):07/13/2018 12:30 pm - Leno Dhillon MD at Operating Room08/09/2018 2:20 pm - Cintia Dominguez MD at Primary Care Oiucqz8303/23/2019 8: 45 am - Leah Wilson M.D. at Cjtplbe99/12/2018 10:40 am - Cintia Dominguez MD at Primary Care Dsdyio7608/26/2018 8:15 am - Healthcare Recruiter at Primary Care Yeiuit8407/07 - Leno Dhillon MDK92.1 MelenaNew Medication:Fleet Enema 7-19 GM/ 118MLComments:arrange for EGD and sigmoidoscopy and bandingstool studies
[2018-08-09 09:23] VITALS: BP 136/59
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
== END 2018-08-09 10:37 | disposition home or self-care (01) ==
LOC: UCCORT 08:54
DX: S70.12XA Contusion of left thigh, initial encounter (principal); S70.11XA Contusion of right thigh, initial encounter; V91.29XA Fall due to collision between unspecified watercraft and other watercraft or other object, initial encounter; Y93.19 Activity, other involving water and watercraft; Y92.838 Other recreation area as the place of occurrence of the external cause; Z87.891 Personal history of nicotine dependence
CPT/HCPCS: 81003; 99211; G0463

== ENCOUNTER 2018-08-13 08:50 | Emergency (ER) | payer OTHER ==
[2018-08-13 09:10] VITALS: BP 127/73
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
--- NOTE | 2018-08-13 10:29 | RAD ---
INDICATION: Pain at the right hip COMPARISON: CT of the abdomen and pelvis dated September 21, 2011 TECHNIQUE: 2 views of the bilateral hips and AP view of the pelvis was obtained FINDINGS: The patient's left hip prosthesis is anatomically aligned. There is no evidence of periprostatic fracture or loosening. Degenerative changes of the right hip include mild sclerotic change of the acetabular roof. There is no radiographically apparent acute fracture or dislocation. Degenerative changes of the lower lumbar spine includes loss of intervertebral disc height and marginal osteophyte formation. IMPRESSION: Anatomic alignment of left hip prosthesis and degenerative changes without radiographically apparent acute fracture or dislocation. If the patient's symptoms persist follow-up imaging is recommended.
== END 2018-08-13 10:38 | disposition home or self-care (01) ==
LOC: UCCORT 08:50
DX: S76.011A Strain of muscle, fascia and tendon of right hip, initial encounter (principal); S70.11XA Contusion of right thigh, initial encounter; S70.12XA Contusion of left thigh, initial encounter; V94.89XA Other water transport accident, initial encounter; Y92.89 Other specified places as the place of occurrence of the external cause; Z87.891 Personal history of nicotine dependence
CPT/HCPCS: 99211; G0463

== ENCOUNTER 2018-09-19 07:00 | Emergency (ER) | payer MEDICARE, BC ==
--- OUTSIDE RECORDS SUMMARY | 2018-09-19 07:13 | XMS REPORT ---
:1935 External Reference #:[id number] Author Organization [facility] Address [address], [address] [place] [address] Phone [phone] Care Team Providers Name Role Phone Cintia Dominguez MD Care Team Information Data Visualization Developer Unavailable Cintia Dominguez MD Primary Care Physician Unavailable Payers Type Date Identification Numbers Payment Provider Subscriber Medicare Primary Policy Number: [id number] Medicare Wale Mcnamara PayID: [id number] [address] [place] [address] [facility] Policy Number: [id number] [facility] Heather Mcnamara PayID: [id number] [address] [place] [address] Problems Date Description Provider Status Onset: 02/03/2013 Palpitations Harpal Stevens MD, PhD Active Onset: 05/10/2015 Benign essential hypertension Dallas Laguerre Active M.D., FACC Onset: 06/01/2016 Left bundle branch block Dallas Laguerre Active M.D., FACC Onset: 07/30/2016 Preoperative cardiovascular Dallas Laguerre Active examination Ruperto, FACC Onset: 07/30/2016 Cardiomyopathy, unspecified Dallas Laguerre Active M.D., FACC Onset: 07/19/2017 Electrocardiogram abnormal Dallas Laguerre Active M.D., FACC Onset: 08/31/2017 Hernia of anterior abdominal wall Fer Flores MD,FACS Active without obstruction AND without gangrene Onset: 09/02/2017 Genaro hematuria Leah Wilson M.D. Active Onset: 09/10/2017 Benign prostatic hypertrophy with Leah Wilson M.D. Active outflow obstruction Onset: 02/01/2018 Acute bronchitis Yaniv Camejo M.D. Active Onset: 03/21/2018 Hyperlipidemia Cintia Dominguez MD Active Onset: 03/21/2018 Immunization Cintia Dominguez MD Active Onset: 07/07/2018 Melena Leno Dhillon MD Active Onset: 07/28/2018 Duodenitis Leno Dhillon MD Active Onset: 07/28/2018 Other specified diseases of anus Leno Dhillon MD Active and rectum Family History Date Family Member(s) Problem(s) Comments [...] Form Strength Qnty SIG Indications Ordering Provider Ofloxacin (Otic) 09/02/ Active Solution 0.3% 10ml Use 10 H60.8x1 2017 drops in Thania right ear e, MS, four times [employer], a day for CNM 7 days Omeprazole 06/20/ Active Capsules 40mg 30cap Take one R12 , 2017 DR aldana every Thania morning e, MS, [employer], CNM Drysol 12/14/ Active Solution 20% 60ml apply to Angelica, 2017 affected MD Cintia area every day Levocetirizine 04/07/ Active Tablets 5mg 90tab 1 tab by Suha Dominguez 2016 s mouth MD Cintia daily as needed Benadryl Allergy 02/05/ Active Capsules 25mg 60cap 2 tabs po Angelica, 2017 s at hs MD Cintia Sumatriptan 07/15/ Active Tablets 25mg 180ta one by Angelica, Succinate 2015 bs mouth at MD Cintia onset of headache prodromal symptoms may repeat dose in 1 hour if needed Dicyclomine HCL 07/15/ Active Capsules 10mg 360ca 1 cap by Angelica, 2015 ps mouth MD Cintia every 6 h as needed for abdominal pain Aspirin / Active Tablets DR 325mg as needed Unknown 0000 Ipratropium / Active Solution 0.03% [place] 2 Unknown [place] 0000 Sprays In Each Nostril Every Day prn Fish Oil / Active Capsules 600mg 1 cap by Unknown 0000 mouth daily Metamucil Free & / Active Powder 43% 1 table Unknown Natural 0000 spoon with 12 ounces water daily per pt as needed Metoprolol / Active Tablets ER 50mg 90tab Take One R00.2 Angeilca, Succinate ER 0000 24HR s Tablet By MD Cintia Mouth Every Day Tamsulosin HCL / Active Capsules 0.4mg 90cap Take One Angelica, 0000 s Capsule By MD Cintia Mouth Every Day Fleet Enema 07/07/ Hx Enema 7-19GM/11 133ml 1 unit per K92.1 Alejo 2018 - 8ML rectum , Leno, 07/28/ once at 2018 night and once in morning Doxycycline 04/07/ Hx Capsules 100mg 2caps 2 cap by Angelica, Monohydrate 2017 - mouth once MD Cintia 2017 Cefuroxime Axetil 02/01/ Hx Tablets 500mg 14tab 1 tab by J20.9 [place] 2018 - s mouth , 03/21/ twice a Yaniv, 2017 day M.DGeorge Omeprazole 07/08/ Hx Capsules 20mg 90cap 1 by mouth R12 Alejo 2016 - DR aldana every day Leno 06/20/ 2017 Lidocaine Viscous 07/08/ Hx Solution 2% 600ml 1 unit Alejo 2016 - apply to Leno 08/31/ affected 2017 area twice a day as needed Citroma 06/15/ Hx Solution 1.745GM/3 296ml drink 1 K62.5 2016 0ML bottle at Leno 12pm (noon)the day before the procedure Dulcolax 06/15/ Hx Tablets DR 5mg 4tabs 4 tablets K62.5 2016 taken a Leno, 8pm the MD day before the procedure Golytely 06/15/ Hx Solution 236gm 4000m drink half 2016 Rec l the Leno, evening MD before and half the morning of the procedure (1 cup every 10') Omeprazole 04/07/ Hx Capsules 40mg 1 by mouth Angelica, 2016 - DR every day MD Cintia 2016 Azelastine HCL 12/14/ Hx Solution 0.1% 30ml 1-2 sprays Angelica, (Nasal) 2016 - in both MD Cintia nasal 2016 passages as needed Ventolin HFA 09/16/ Hx Aerosol 108(90Bas 8gm 1-2 puffs Angelica, 2015) every 4-6 MD Cintia mcg/Act hours as needed for cough and shortness of breath Levocetirizine 07/15/ Hx Tablets 5mg 90tab 1 tab by Angelica, Dihydrochloride 2015 - s mouth MD Cintia daily 2016 Metoprolol 09/14/ Hx Tablets ER 50mg 180ta 1/2 po qd 785.1 Stevens, Succinate ER 2012 24HR bs Harpal Sims MD, PhD Aspirin Ec 02/03/ Hx Tablets DR 325mg 1 po as Hilda, 2012 Needed Harpal Sims MD, PhD Metoprolol 02/03/ Hx Tablets ER 25mg 90tab 1 po qd 785.1 Stevens, Succinate ER 2012 - 24HR s Harpal Sims 09/14/ , PhD 2012 Omeprazole / Hx Capsules 20mg 90cap 1 by mouth Angelica, - DR s every day MD Cintia 2016 Viagra / Hx Tablets 25mg prn Unknown 0000 Finasteride / Hx Tablets 5mg 30tab 1 po qd Unknown 0000 s Tamsulosin HCL / Hx Capsules 0.4mg po qd Unknown 0000 Levocetirizine / Hx Tablets 5mg po qd Unknown Dihydrochloride 0000 Aleve / Hx Capsules 220mg prn Unknown 0000 - 2017 Benadryl / Hx Capsules 25mg 2 tabs po Unknown 0000 - at hs 2016 Multivitamins / Hx Tablets 1 po qd Unknown 0000 Fish Oil / Hx Capsules 1200mg by mouth Unknown 0000 qd Flomax / Hx Capsules 0.4mg by mouth Unknown 0000 - every day 2015 Tamsulosin HCL / Hx Capsules 0.4mg 90cap 1 caps by Angelica, 0000 - s alysia Chamberlain MD 2016 Sumatriptan / Hx Tablets 25mg one by Unknown Succinate 0000 mouth at onset of headache prodromal symptoms may repeat dose in 1 hour if needed Immunizations CPT Code Status Date Vaccine Lot # [id number] Given 08/18/2018 Influenza High Dose 43709 Given 03/21/2018 Tdap injection [id number] Given 09/15/2017 Influenza High Dose [id number] Given 09/16/2016 Influenza Vaccine (Fluzone) Age 3 And Older [id number] Vital Signs Date Vital Result Comment 09/02/2018 BP Systolic Sitting Right Arm 140 mmHg BP Diastolic Sitting Right Arm 70 mmHg Body Temperature 97.1 F Heart Rate 59 /min Respiratory Rate 12 /min Height 68 inches 5'8" Weight 216.00 lb BMI (Body Mass Index) 32.8 kg/m2 BSA (Body Surface Area) 2.11 m2 [place] body weight in kilograms 70 O2 % BldC Oximetry 96 % 07/28/2018 BP Systolic Sitting Left Arm 138 mmHg BP Diastolic Sitting Left Arm 70 mmHg Heart Rate 46 /min Respiratory Rate 16 /min Height 68 inches 5'8" Weight 211.00 lb BMI (Body Mass Index) 32.1 kg/m2 BSA (Body Surface Area) 2.09 m2 [place] body weight in kilograms 70 07/07/2018 BP Systolic Sitting Left Arm 145 mmHg BP Diastolic Sitting Left Arm 81 mmHg Heart Rate 66 /min Respiratory Rate 16 /min Height 68 inches 5'8" Weight 209.00 lb BMI (Body Mass Index) 31.8 kg/m2 BSA (Body Surface Area) 2.08 m2 [place] body weight in kilograms 70 O2 % BldC Oximetry 95 % 06/17/2018 BP Systolic Sitting Left Arm 132 mmHg BP Diastolic Sitting Left Arm 74 mmHg Body Temperature 98.1 F Heart Rate 63 /min Respiratory Rate 18 /min Height 68 inches 5'8" Weight 210.00 lb BMI (Body Mass Index) 31.9 kg/m2 BSA (Body Surface Area) 2.09 m2 [place] body weight in kilograms 70 O2 % [...] kg/m2 BSA (Body Surface Area) 2.08 m2 [place] body weight in kilograms 70 02/01/2018 BP Systolic Sitting Right Arm 120 mmHg manual BP Diastolic Sitting Right Arm 64 mmHg manual Body Temperature 97.6 F Heart Rate 56 /min Respiratory Rate 18 /min Height 68 inches 5'8" Weight 209.00 lb BMI (Body Mass Index) 31.8 kg/m2 BSA (Body Surface Area) 2.08 m2 [place] body weight in kilograms 70 O2 % BldC Oximetry 94 % Ra 09/15/2017 BP Systolic 146 mmHg BP Diastolic 78 mmHg Heart Rate 57 /min Height 68 inches 5'8" Weight 210.38 lb BMI (Body Mass Index) 32.0 kg/m2 BSA (Body Surface Area) 2.09 m2 [place] body weight in kilograms 70 09/10/2017 BP [...] kg/m2 BSA (Body Surface Area) 2.10 m2 [place] body weight in kilograms 70 O2 % BldC Oximetry 96 % 08/31/2017 BP Systolic 118 mmHg BP Diastolic 78 mmHg Height 68 inches 5'8" Weight 211.00 lb BMI (Body Mass Index) 32.1 kg/m2 BSA (Body Surface Area) 2.09 m2 [place] body weight in kilograms 70 08/25/2017 BP Systolic Sitting Right Arm 106 mmHg BP Diastolic Sitting Right Arm 80 mmHg Body Temperature 97.5 F Heart Rate 43 /min Height 68 inches 5'8" Weight 207.00 lb BMI (Body Mass Index) 31.5 kg/m2 BSA (Body Surface Area) 2.07 m2 [place] body weight in kilograms 70 07/19/2017 BP Systolic Sitting Left Arm 132 mmHg BP Diastolic Sitting Left Arm 72 mmHg Heart Rate 54 /min Respiratory Rate 16 /min Height 68 inches 5'8" Weight 209.00 lb BMI (Body Mass Index) 31.8 kg/m2 BSA (Body Surface Area) 2.08 m2 [place] body weight in kilograms 70 07/08/2017 BP Systolic Sitting Left Arm 122 mmHg BP Diastolic Sitting Left Arm 80 mmHg Heart Rate 76 /min Respiratory Rate 16 /min Height 68 inches 5'8" Weight 210.00 lb BMI (Body Mass Index) 31.9 kg/m2 BSA (Body Surface Area) 2.09 m2 [place] body weight in kilograms 70 06/15/2017 BP Systolic Lying Down Resting Right Arm 130 mmHg BP Diastolic Lying Down Resting Right Arm 82 mmHg Heart Rate 46 /min Respiratory Rate 16 /min Height 68 inches 5'8" Weight 209.00 lb BMI (Body Mass Index) 31.8 kg/m2 BSA (Body Surface Area) 2.08 m2 [place] body weight in kilograms 70 04/07/2017 BP Systolic 124 mmHg irregular BP Diastolic 68 mmHg irregular Heart Rate 58 /min irregular Respiratory Rate 16 /min Height 68 inches 5'8" Weight 208.00 lb with shoes BMI (Body Mass Index) 31.6 kg/m2 BSA (Body Surface Area) 2.08 m2 [place] body weight in kilograms 70 O2 % [...] Test Date Test Result H/L Range Note CBS W/Automated Diff 08/26/2018 White Blood Count 5.9 K/uL 3.4-10.5 1 Red Blood Count 4.36 M/uL 4.20-5.80 1 Hemoglobin 13.7 gm/dL 12.8-17.0 1 Hematocrit 40.7 % 38.0-48.0 1 Mean Cell Volume 93.3 fl 80.0-96.0 1 Mean Corpuscular HGB 31.4 pg 27.0-33.0 1 Mean Corpuscular HGB Conc 33.7 g/dL 31.7-36.0 1 Platelet Count 252 K/uL 155-360 1 Red Cell Distri Width SD 44.9 fl 36-51 1 Red Cell Distri Width %CV 13.5 % 11.6-15.8 1 Mean Platelet Volume 9.9 fL 6.6-10.6 1 Neut% 49.9 % 33.0-73.0 1 Lymph % 35.6 % 20.0-42.0 1 Parke % 10.7 % High 0.0-10.0 1 Eo% 3.6 % 0.0-6.6 1 Bas% 0.2 % 0.0-1.1 1 Neut# 2.93 K/uL 1.8-7.0 1 Lymph # 2.09 K/uL 1.0-4.0 1 [place]ke # 0.63 K/uL 0.0-0.8 1 Eos # 0.21 K/uL 0.0-0.5 1 Baso # 0.01 K/uL 0.0-0.1 1 Comprehensive Metabolic Panel 08/26/2018 Glucose 104 mg/dL 74-106 1 BUN 21 mg/dL High 7-18 1 Creatinine 1.2 mg/dL 0.6-1.3 1 Glom Filtration Rate, Estimate >60 mL/min >60 1 If >60 mL/min >60 1, 2 BUN/Creat 17.5 ratio 1 Sodium 142 mmol/L 136-145 1 Potassium 4.4 mmol/L 3.5-5.1 1 Chloride 107 mmol/L 98-107 1 Carbon Dioxide 29 mmol/L 21-32 1 Anion Gap 6 mEq/L Low 8-16 1 Calcium 9.3 mg/dL 8.5-10.1 1 Total Protein 7.5 g/dL 6.4-8.2 1 Albumin 3.8 g/dL 3.4-5.0 1 Globulin 3.7 g/dL 1.9-4.3 1 Alb/Glob 1.0 ratio 1 Bilirubin,Total 0.6 mg/dL 0.2-1.0 1 Sgot/Ast 18 U/L 15-37 1 SGPT/Alt 20 U/L 12-78 1 Alkaline Phosphatase 55 U/L 45-117 1 LDL Cholesterol Profile 08/26/2018 Cholesterol 147 mg/dL <200 1, 3 Triglycerides 131 mg/dL <150 1, 4 HDL Cholesterol 48 mg/dL >40 1, 5 LDL-Cholesterol 73 mg/dL < 100 1, 6 Laboratory test finding 08/26/2018 Slide Review (SEE NOTE) 1, 7 Poc Urinalysis 08/09/2018 Poc Glucose, Urine Negative Negative Poc Bilirubin, Urine Negative Negative Poc Ketone, Urine Negative Negative Poc Specific [place], Urine <=1.005 Low 1.010-1.030 Poc Blood, Urine Negative Negative Poc pH, Urine 5.0 5-9 Poc Protein, Urine Negative Negative Poc Urobilinogen, Urine 0.2 Negative Poc Nitrite, Urine Negative Negative Poc Leukocytes, Urine Negative Negative Poc Color, Urine Yellow Poc Clarity, Urine Clear 8 Fecal Fat, Qualitative 07/08/2018 Fats, Neutral Normal . 9, 10 Fats, Total Normal . 9, 11 Laboratory test finding 07/07/2018 Lipase 148 U/L 56-289 9 Celiac Disease Comp AB Profile 07/07/2018 Immunoglobulin A 205 mg/dL 61- 437 9, 12 Antigliadin Abs, IgG 2 units 0-19 9, 13 Antigliadin Abs, IgA 5 units 0-19 9, 14 Endomysial IgA Antibody Negative Negative 9 t-Transglutaminase IgA <2 U/mL 0-3 9, 15 t-Transglutaminase IgG <2 U/mL 0-5 9, 16 Laboratory test finding 07/07/2018 Sedimentation Rate 28 mm/hr High 0-20 9, 17 CBS W/Automated Diff 06/17/2018 White Blood Count 6.1 K/uL 3.4-10.5 9 Red Blood Count 4.60 M/uL 4.20-5.80 9 Hemoglobin 14.5 gm/dL 12.8-17.0 9 Hematocrit 42.4 % 38.0-48.0 9 Mean Cell Volume 92.2 fl 80.0-96.0 9 Mean Corpuscular HGB 31.5 pg 27.0-33.0 9 Mean Corpuscular HGB Conc 34.2 g/dL 31.7-36.0 9 Platelet Count 207 K/uL 155-360 9 Red Cell Distri Width SD 46.7 fl 36-51 9 Red Cell Distri Width %CV 14.0 % 11.6-15.8 9 Mean Platelet Volume 9.9 fL 6.6-10.6 9 Neut% 49.3 % 33.0-73.0 9 Lymph % 36.4 % 20.0-42.0 9 Parke % 11.3 % High 0.0-10.0 9 Eo% 2.8 % 0.0-6.6 9 Bas% 0.2 % 0.0-1.1 9 Neut# 3.03 K/uL 1.8-7.0 9 Lymph # 2.23 K/uL 1.0-4.0 9 Parke # 0.69 K/uL 0.0-0.8 9 Eos # 0.17 K/uL 0.0-0.5 9 Baso # 0.01 K/uL 0.0-0.1 9 Comprehensive Metabolic Panel 06/17/2018 Glucose 107 mg/dL High 74-106 9 BUN 25 mg/dL High 7-18 9 Creatinine 1.1 mg/dL 0.6-1.3 9 Glom Filtration Rate, Estimate >60 mL/min >60 9 If >60 mL/min >60 9, 18 BUN/Creat 22.7 ratio 9 Sodium 144 mmol/L 136-145 9 Potassium 4.4 mmol/L 3.5-5.1 9 Chloride 111 mmol/L High 98-107 9 Carbon Dioxide 25 mmol/L 21-32 9 Anion Gap 8 mEq/L 8-16 9 Calcium 8.9 mg/dL 8.5-10.1 9 Total Protein 7.6 g/dL 6.4-8.2 9 Albumin 3.9 g/dL 3.4-5.0 9 Globulin 3.7 g/dL 1.9-4.3 9 Alb/Glob 1.1 ratio 9 Bilirubin,Total 0.4 mg/dL 0.2-1.0 9 Sgot/Ast 20 U/L 15-37 9 SGPT/Alt 19 U/L 12-78 9 Alkaline Phosphatase 62 U/L 45-117 9 Protime 06/17/2018 Protime 13.7 seconds 12.0-14.4 9 Inr 1.1 0.9-1.1 9, 19 Laboratory test finding 06/17/2018 Act Partial 26.8 seconds 23.4-35.0 9 , 20 Thrombo Time Comprehensive Metabolic 03/11/2018 Glucose 104 mg/dL 74-106 21 Panel BUN 20 mg/dL High 7-18 21 Creatinine 1.0 mg/dL 0.6-1.3 21 Glom Filtration Rate, Estimate >60 mL/min >60 21 If >60 mL/min >60 21, 22 BUN/Creat 20.0 ratio 21 Sodium 140 mmol/L 136-145 21 Potassium 4.1 mmol/L 3.5-5.1 21 Chloride 108 mmol/L High 98-107 21 Carbon Dioxide 24 mmol/L 21-32 21 Anion Gap 8 mEq/L 8-16 21 Calcium 8.7 mg/dL 8.5-10.1 21 Total Protein 7.5 g/dL 6.4-8.2 21 Albumin 3.7 g/dL 3.4-5.0 21 Globulin 3.8 g/dL 1.9-4.3 21 Alb/Glob 1.0 ratio 21 Bilirubin,Total 0.5 mg/dL 0.2-1.0 21 Sgot/Ast 19 U/L 15-37 21 SGPT/Alt 18 U/L 12-78 21 Alkaline Phosphatase 51 U/L 45-117 21 LDL Cholesterol Profile 03/11/2018 Cholesterol 148 mg/dL <200 21, 23 Triglycerides 77 mg/dL <150 21, 24 HDL Cholesterol 55 mg/dL >40 21, 25 LDL-Cholesterol 78 mg/dL < 100 21, 26 CBS W/Automated Diff 03/11/2018 White Blood Count 5.9 K/uL 3.4-10.5 21 Red Blood Count 4.71 M/uL 4.20-5.80 21 Hemoglobin 14.8 gm/dL 12.8-17.0 21 Hematocrit 42.7 % 38.0-48.0 21 Mean Cell Volume 90.7 fl 80.0-96.0 21 Mean Corpuscular HGB 31.4 pg 27.0-33.0 21 Mean Corpuscular HGB Conc 34.7 g/dL 31.7-36.0 21 Platelet Count 186 K/uL 155-360 21 Red Cell Distri Width SD 45.2 fl 36-51 21 Red Cell Distri Width %CV 14.1 % 11.6-15.8 21 Mean Platelet Volume 10.4 fL 6.6-10.6 21 Neut% 45.5 % 33.0-73.0 21 Lymph % 40.4 % 20.0-42.0 21 Parke % 10.5 % High 0.0-10.0 21 Eo% 3.4 % 0.0-6.6 21 Bas% 0.2 % 0.0-1.1 21 Neut# 2.70 K/uL 1.8-7.0 21 Lymph # 2.39 K/uL 1.0-4.0 21 Parke # 0.62 K/uL 0.0-0.8 21 Eos # 0.20 K/uL 0.0-0.5 21 Baso # 0.01 K/uL 0.0-0.1 21 Comprehensive Metabolic Panel 09/02/2017 Glucose 114 mg/dL High 74-106 27 BUN 22 mg/dL High 7-18 27 Creatinine 1.2 mg/dL 0.6-1.3 27 Glom Filtration Rate, Estimate >60 mL/min >60 27 If >60 mL/min >60 27, 28 BUN/Creat 18.3 ratio 27 Sodium 140 mmol/L 136-145 27 Potassium 4.4 mmol/L 3.5-5.1 27 Chloride 109 mmol/L High 98-107 27 Carbon Dioxide 25 mmol/L 21-32 27 Anion Gap 6 mEq/L Low 8-16 27 Calcium 8.5 mg/dL 8.5-10.1 27 Total Protein 7.2 g/dL 6.4-8.2 27 Albumin 3.4 g/dL 3.4-5.0 27 Globulin 3.8 g/dL 1.9-4.3 27 Alb/Glob 0.9 ratio 27 Bilirubin,Total 0.4 mg/dL 0.2-1.0 27 Sgot/Ast 15 U/L 15-37 27 SGPT/Alt 18 U/L 12-78 27 Alkaline Phosphatase 58 U/L 45-117 27 Laboratory test finding 09/02/2017 Prostate Specific 1.82 ng/mL < 4.0 27 , 29 Antigen Slide Review (SEE NOTE) 27, 30 LDL Cholesterol Profile 09/02/2017 Cholesterol 136 mg/dL <200 27, 31 Triglycerides 174 mg/dL High <150 27, 32 HDL Cholesterol 50 mg/dL >40 27, 33 LDL-Cholesterol 51 mg/dL < 100 27, 34 CBS W/Automated Diff 09/02/2017 White Blood Count 5.4 K/uL 3.4-10.5 27 Red Blood Count 4.63 M/uL 4.20-5.80 27 Hemoglobin 14.5 gm/dL 12.8-17.0 27 Hematocrit 42.5 % 38.0-48.0 27 Mean Cell Volume 91.8 fl 80.0-96.0 27 Mean Corpuscular HGB 31.3 pg 27.0-33.0 27 Mean Corpuscular HGB Conc 34.1 g/dL 31.7-36.0 27 Platelet Count 202 K/uL 150-400 27 Red Cell Distri Width SD 45.2 fl 36-51 27 Red Cell Distri Width %CV 13.8 % 11.6-15.8 27 Mean Platelet Volume 9.6 fL 6.6-10.6 27 Neut% 59.8 % 33.0-73.0 27 Lymph % 25.9 % 20.0-42.0 27 Parke % 11.5 % High 0.0-10.0 27 Eo% 2.6 % 0.0-6.6 27 Bas% 0.2 % 0.0-1.1 27 Neut# 3.24 K/uL 1.8-7.0 27 Lymph # 1.40 K/uL 1.0-4.0 27 Parke # 0.62 K/uL 0.0-0.8 27 Eos # 0.14 K/uL 0.0-0.5 27 Baso # 0.01 K/uL 0.0-0.1 27 Ua Routine 08/25/2017 Urine Color YELLOW Yellow Urine Clarity CLEAR Clear Urine Glucose - Dipstick NEGATIVE mg/dL Negative Urine Bilirubin - Dipstick NEGATIVE Negative Urine Ketone NEGATIVE mg/dL Negative Urine Specific [place] 1.020 1.010-1.030 Urine Blood SMALL Negative Urine [...] Seen Source: URINE, CLEAN CAT <SEE NOTE> 35 Throat Culture Complete 04/08/2017 Throat Culture NORMAL THROAT FL 36, 37 Complete <SEE NOTE> Comprehensive Metabolic 09/25/2016 Glucose 97 mg/dL 74-106 38 Panel BUN 23 mg/dL High 7-18 38 Creatinine 1.1 mg/dL 0.6-1.3 38 Glom Filtration Rate, Estimate >60 mL/min >60 38 If >60 mL/min >60 38, 39 BUN/Creat 20.9 ratio 38 Sodium 143 mmol/L 136-145 38 Potassium 4.2 mmol/L 3.5-5.1 38 Chloride 111 mmol/L High 98-107 38 Carbon Dioxide 24 mmol/L 21-32 38 Anion Gap 8 mEq/L 8-16 38 Calcium 9.0 mg/dL 8.5-10.1 38 Total Protein 7.5 g/dL 6.4-8.2 38 Albumin 3.7 g/dL 3.4-5.0 38 Globulin 3.8 g/dL 1.9-4.3 38 Alb/Glob 1.0 ratio 38 Bilirubin,Total 0.5 mg/dL 0.2-1.0 38 Sgot/Ast 17 U/L 15-37 38 SGPT/Alt 17 U/L 12-78 38 Alkaline Phosphatase 56 U/L 45-117 38 CBS W/Automated Diff 09/25/2016 White Blood Count 4.8 K/uL 3.4-10.5 38 Red Blood Count 4.76 M/uL 4.20-5.80 38 Hemoglobin 14.5 gm/dL 12.8-17.0 38 Hematocrit 43.1 % 38.0-48.0 38 Mean Cell Volume 90.5 fl 80.0-96.0 38 Mean Corpuscular HGB 30.5 pg 27.0-33.0 38 Mean Corpuscular HGB Conc 33.6 g/dL 31.7-36.0 38 Platelet Count 191 K/uL 150-400 38 Red Cell Distri Width SD 43.9 fl 36-51 38 Red Cell Distri Width %CV 13.8 % 11.6-15.8 38 Mean Platelet Volume 10.3 fL 6.6-10.6 38 Neut% 49.1 % 33.0-73.0 38 Lymph % 35.9 % 17.0-56.0 38 Parke % 10.6 % High 0.0-10.0 38 Eo% 4.0 % 0.0-5.0 38 Bas% 0.4 % 0.1-1.0 38 Neut# 2.35 K/uL 1.8-7.0 38 Lymph # 1.72 K/uL Low 1.8-7.0 38 Parke # 0.51 K/uL 0.0-0.8 38 Eos # 0.19 K/uL 0.0-0.5 38 Baso # 0.02 K/uL Low 0.1-0.2 38 LDL Cholesterol Profile 09/25/2016 Cholesterol 161 mg/dL <200 38, 40 Triglycerides 84 mg/dL <150 38, 41 HDL Cholesterol 56 mg/dL >40 38, 42 LDL-Cholesterol 88 mg/dL < 100 38, 43 Glycohemoglobin A1c 09/25/2016 Glycohemoglobin (A1c) 5.6 % 4.2-6.3 38, 44 eAG 114 mg/dL 38 Laboratory test finding 09/25/2016 Prostate Specific 1.69 ng/mL < 4.0 38 , 45 Antigen Comprehensive Metabolic 06/22/2016 Glucose 120 mg/dL High 74-106 Panel BUN 20 mg/dL High 7-18 Creatinine 1.1 mg/dL 0.6-1.3 Glom Filtration Rate, Estimate >60 mL/min >60 If >60 mL/min >60 46 BUN/Creat 18.1 ratio Sodium 143 mmol/L 136-145 [...] 67 U/L 39-308 Troponin-I < 0.015 ng/mL 47 CBC W/Automated Diff 06/22/2016 White Blood Count [...] % 33.0-73.0 Lymph % 33.3 % 17.0-56.0 Parke % 9.9 % 0.0-10.0 Eo% 4.2 % 0.0-5.0 Bas% 0.2 % 0.1-1.0 Neut# 2.86 K/uL 1.8-7.0 Lymph # 1.82 K/uL 1.8-7.0 Parke # 0.54 K/uL 0.0-0.8 Eos # 0.23 K/uL 0.0-0.5 Baso # 0.01 K/uL Low 0.1-0.2 1 I10, E78.5, I10, N40.1 2 Note: Persistent reduction for 3 months or more in an eGFR <60 mL/min/1.73 m2 defines CKD. Patients with eGFR values >/=60 mL/min/1.73 m2 may also have CKD if evidence of persistent proteinuria is present. The original MDRD equation for estimated GFR is not valid for patients less than 18 years of age. Additional information may be found at www.kdoqi.org. 3 Reference Guidelines*: Desirable: ........... < 200 mg/dL Borderline High: ..... 200-239 mg/dL High: ................ >=240 mg/dL * The National Cholesterol Education Program (NCEP) 4 Reference Guidelines*: Normal: ............. < 150 mg/dL Borderline High: .... 150-199 mg/dL High: ............... 200-499 mg/dL Very High: .......... > 500 mg/dL * Source: National Cholesterol Education Program (NCEP) 5 Reference Guidelines*: Low HDL: ..... < 40 mg/dL Normal: ..... 40-60 mg/dL Desirable: ... > 60 mg/dL *The National Cholesterol Education Program(NCEP) 6 Reference Guidelines*: Optimal:........... <100 mg/dL Near Optimal....... 100-129 mg/dL Borderline High.... 130-159 mg/dL High............... 160-189 mg/dL Very High.......... >=190 mg/dL * Source: National Cholesterol Education Program (NCEP) 7 Instrument flagged sample for slide review. Less than 10% Bands seen, no other immature WBC's seen. RBC morphology essentially normal. Platelet estimate=NORMAL 8 Shear Grinder Operator: [id number] K92.1 10 Normal (<60 Droplets/HPF) 11 Normal (<100 Droplets/HPF) Performed at: [facility] [id number] Business Services Vice President: Moraima Macdonald MD, Phone: [phone] 12 Performed at: [facility] [id number] Business Services Vice President: Moraima Macdonald MD, Phone: [phone] 13 Negative 0 - 19 Weak Positive 20 - 30 Moderate to Strong Positive >30 14 Negative 0 - 19 Weak Positive 20 - 30 Moderate to Strong Positive >30 15 Negative 0 - 3 Weak Positive 4 - 10 Positive >10 Tissue Transglutaminase (tTG) has been identified as the endomysial antigen. Studies have demonstr- ated that endomysial IgA antibodies have over 99% specificity for gluten sensitive enteropathy. 16 Negative 0 - 5 Weak Positive 6 - 9 Positive >9 17 Method: Sediplast Modified Westergren 18 Note: Persistent reduction for 3 months or more in an eGFR <60 mL/min/1.73 m2 defines CKD. Patients with eGFR values >/=60 mL/min/1.73 m2 may also have CKD if evidence of persistent proteinuria is present. The original MDRD equation for estimated GFR is not valid for patients less than 18 years of age. Additional information may be found at www.kdoqi.org. 19 THERAPEUTIC INR RANGE: 2.0 - 3.0 DVT, Pulmonary embolus, prophylaxis against venous thrombosis or systemic embolization in high risk patients. 2.5 - 3.5 Mechanical heart valves 20 Is patient on heparin protocol? N Is patient on anticoagulants? None 21 E78.5 N40.1 22 Note: Persistent reduction for 3 months or more in an eGFR <60 mL/min/1.73 m2 defines CKD. Patients with eGFR values >/=60 mL/min/1.73 m2 may also have CKD if evidence of persistent proteinuria is present. The original MDRD equation for estimated GFR is not valid for patients less than 18 years of age. Additional information may be found at [email or web address]. 23 Reference Guidelines*: Desirable: ........... < 200 mg/dL Borderline High: ..... 200-239 mg/dL High: ................ >=240 mg/dL * The National Cholesterol Education Program (NCEP) 24 Reference Guidelines*: Normal: ............. < 150 mg/dL Borderline High: .... 150-199 mg/dL High: ............... 200-499 mg/dL Very High: .......... > 500 mg/dL * Source: National Cholesterol Education Program (NCEP) 25 Reference Guidelines*: Low HDL: ..... < 40 mg/dL Normal: ..... 40-60 mg/dL Desirable: ... > 60 mg/dL *The National Cholesterol Education Program(NCEP) 26 Reference Guidelines*: Optimal:........... <100 mg/dL Near Optimal....... 100-129 mg/dL Borderline High.... 130-159 mg/dL High............... 160-189 mg/dL Very High.......... >=190 mg/dL * Source: National Cholesterol Education Program (NCEP) 27 I10,N40.0,J44.9.I42.9 28 Note: Persistent reduction for 3 months or more in an eGFR <60 mL/min/1.73 m2 defines CKD. Patients with eGFR values >/=60 mL/min/1.73 m2 may also have CKD if evidence of persistent proteinuria is present. The original MDRD equation for estimated GFR is not valid for patients less than 18 years of age. Additional information may be found at www.kdoqi.org. 29 THIS ASSAY IS NOT INTENDED A CANCER SCREENING TEST The concentration of PSA in a given specimen, determined with assays from different manufacturers, can vary due to differences in assay methods and reagent specificity. Values obtained from different assay methods cannot be used interchangeably. Method: [employer] [place] Chemiluminescent immunoassay. 30 Instrument flagged sample for slide review. Less than 10% Bands seen, no other immature WBC's seen. RBC morphology essentially normal. Platelet estimate=NormaL 31 Reference Guidelines*: Desirable: ........... < 200 mg/dL Borderline High: ..... 200-239 mg/dL High: ................ >=240 mg/dL * The National Cholesterol Education Program (NCEP) 32 Reference Guidelines*: Normal: ............. < 150 mg/dL Borderline High: .... 150-199 mg/dL High: ............... 200-499 mg/dL Very High: .......... > 500 mg/dL * Source: National Cholesterol Education Program (NCEP) 33 Reference Guidelines*: Low HDL: ..... < 40 mg/dL Normal: ..... 40-60 mg/dL Desirable: ... > 60 mg/dL *The National Cholesterol Education Program(NCEP) 34 Reference Guidelines*: Optimal:........... <100 mg/dL Near Optimal....... 100-129 mg/dL Borderline High.... 130-159 mg/dL High............... 160-189 mg/dL Very High.......... >=190 mg/dL * Source: National Cholesterol Education Program (NCEP) 35 URINE, CLEAN CATCH 36 J30.9 J02.9 37 NORMAL THROAT AUDI 38 I42.9 I10 N40.0 I44.7 39 Note: Persistent reduction for 3 months or more in an eGFR <60 mL/min/1.73 m2 defines CKD. Patients with eGFR values >/=60 mL/min/1.73 m2 may also have CKD if evidence of persistent proteinuria is present. The original MDRD equation for estimated GFR is not valid for patients less than 18 years of age. Additional information may be found at www.kdoqi.org. 40 Reference Guidelines*: Desirable: ........... < 200 mg/dL Borderline High: ..... 200-239 mg/dL High: ................ >=240 mg/dL * The National Cholesterol Education Program (NCEP) 41 Reference Guidelines*: Normal: ............. < 150 mg/dL Borderline High: .... 150-199 mg/dL High: ............... 200-499 mg/dL Very High: .......... > 500 mg/dL * Source: National Cholesterol Education Program (NCEP) 42 Reference Guidelines*: Low HDL: ..... < 40 mg/dL Normal: ..... 40-60 mg/dL Desirable: ... > 60 mg/dL *The National Cholesterol Education Program(NCEP) 43 Reference Guidelines*: Optimal:........... <100 mg/dL Near Optimal....... 100-129 mg/dL Borderline High.... 130-159 mg/dL High............... 160-189 mg/dL Very High.......... >=190 mg/dL * Source: National Cholesterol Education Program (NCEP) 44 Elevated levels of HbA1c suggest the need for more aggressive treatment of glycemia. The [place] [employer] recommends that a primary goal of therapy should be a HbA1c of <7% and that physicians should re-evaluate the treatment regimen in patients with HbA1c values consistently >8%. 45 THIS ASSAY IS NOT INTENDED A CANCER SCREENING TEST The concentration of PSA in a given specimen, determined with assays from different manufacturers, can vary due to differences in assay methods and reagent specificity. Values obtained from different assay methods cannot be used interchangeably. Method: [employer] [place] Chemiluminescent immunoassay. 46 Note: Persistent reduction for 3 months or more in an eGFR <60 mL/min/1.73 m2 defines CKD. Patients with eGFR values >/=60 mL/min/1.73 m2 may also have CKD if evidence of persistent proteinuria is present. The original MDRD equation for estimated GFR is not valid for patients less than 18 years of age. Additional information may be found at www.kdoqi.org. 47 0.0 - 0.045 ng/mL: Normal 0.046 - 0.5 ng/mL: Suggestive 0.6 - 1.5 ng/mL: Consistent Procedures Date CPT Code Description Status Comment 08/05/2018 79103 EKG Interpretation And Report Completed Only 07/13/2018 Colonoscopy Completed Document: 07/13/18 - Operative Report-EGD/Colon Document: 07/13/18 - Pathology/Biopsy Result Document: 07/13/18 - Flex Sig/Banding & EGD Pics 07/13/2018 86804 Sigmoidoscope With Biopsy Completed 07/13/2018 34225 EGD With Biopsy Completed 03/22/2018 08128 Measurement Post Voiding Completed Residual Urine By Ultrasound,Non-Imaging 03/22/2018 11935 complex uroflowmetry Completed electronic 09/10/2017 45160 complex uroflowmetry Completed electronic 09/10/2017 33997 Cystoscopy Completed 09/10/2017 75738 Measurement Post Voiding Completed Residual Urine By Ultrasound,Non-Imaging 07/05/2017 29946 EGD With Biopsy Completed 07/05/2017 25012 Hemorrhoidectomy, single Completed ligature 07/05/2017 76446 Colonoscopy Completed 06/15/2017 57171 Anoscopy Completed 10/05/2016 72667 Bronchospasm Provocation Completed Evaluation Multi Spirometric Determinati 10/05/2016 32270 Spirometry Completed 10/05/2016 71699 Spirometry Completed 09/25/2016 99281 Bronchospasm Provocation Completed Evaluation Multi Spirometric Determinati 07/30/2016 68619 EKG-Tracing And Report Completed 06/09/2016 17704 Holter Monitor 24HR Completed Inter/Report 06/09/2016 53378 Echocardiogram Complete Completed 06/01/2016 65009 EKG-Tracing And Report Completed 10/29/2014 74008 Echocardiogram Complete Completed 08/23/2014 Colonoscopy Completed Document: 08/23/08 - Op Report- Colonscopy & BX 02/19/2014 67097 Holter Monitor 24HR Completed Inter/Report 11/24/2013 24935 Holter Monitor 24HR Completed Inter/Report 10/30/2013 07939 EKG-Tracing And Report Completed 03/16/2013 29296 Holter Monitor 24HR Completed Inter/Report 02/03/2013 31477 EKG-Tracing And Report Completed 01/30/2013 86753 Echocardiogram Complete Completed 01/30/2013 19739 Holter Monitor 24HR Completed Inter/Report 11/16/2012 21048 ECHO Transthoracic Inc Completed Performance Continuous Electrocardio Mon Encounters Type Date Location Provider CPT E/M Dx Office Visit 09/02/2018 10:45a Primary Care Office Ginna Chappell, G0439 Z00.00 MS, [employer], CNM M20.40 H60.8x1 E78.5 K62.89 I10 G43.109 Office Visit 07/28/2018 9:30[place] [address] K29.80 K62.89 Office Visit 07/07/2018 1:45[place] [address] K92.1 Office Visit 06/17/2018 3:30p Primary Care Office Ginna Chappell, , 56555 K92.1 [employer]-C, CNM N40.1 Office Visit 03/22/2018 8:30a Urology Leah Wilson M.D. 19894 R31.0 N40.1 Office Visit 03/21/2018 10:20a [place] [address] I10 E78.5 N40.1 K43.9 Z23 Office Visit 02/01/2018 3:00p Primary Care Office Yaniv Camejo 68321 J20.9 Ruperto Office Visit 09/15/2017 9:40a [place] [address] N40.1 I10 E78.5 Z23 Office Visit 09/10/2017 10:00a Urology Leah Wilson M.D. 34374 R31.0 N40.1 Office Visit 09/02/2017 9:30a Urology Leah Wilson M.D. 87233 R31.0 Office Visit 08/31/2017 11:00a Surgical Office Fer Flores 22121 K43.9 MERON RAND Office Visit 08/25/2017 3:40p [place] [address] K43.9 R31.9 Office Visit 07/19/2017 10:20a Cardiology Office [place] Laguerre 53979 I44.7 Ruperto, [facility] R94.31 Office Visit 07/08/2017 2:45p [place] [address] R12 K64.1 K57.30 Office Visit 06/15/2017 10:30[place] [address] R12 K62.5 Office Visit 04/07/2017 3:40p [place] [address] J30.9 J02.9 Office Visit 09/16/2016 11:20a [place] [address] I10 N40.0 D22.9 R19.7 R05 Z23 Office Visit 07/30/2016 11:20a Cardiology Office [place] Laguerre, 06070 Z01.810 M.DGeorge, FACC I44.7 I42.9 Office Visit 07/22/2016 8:40a [place] [address] I10 I44.7 M79.671 R00.2 Office Visit 07/15/2016 8:40a [place] [address] I10 I44.7 J30.9 Z96.642 N40.0 Office Visit 06/01/2016 10:20a Cardiology Office [place] Laguerre, 23355 R00.2 MBrody, FACC I44.7 Office Visit 05/10/2015 10:30a Cardiology Office [place] Laguerre, 80198 785.1 M.DGeorge, FACC 401.1 Office Visit 11/01/2014 10:40a Cardiology [place] [address] 785.1 401.1 786.05 Office Visit 04/26/2014 1:10p Cardiology [place] [address] 785.1 401.1 Office Visit 12/06/2013 10:40a Cardiology [place] [address] 785.1 786.05 Office Visit 10/30/2013 11:40a Cardiology [place] [address]286 785.1 786.05 401.1 Office Visit 09/14/2013 2:50p Cardiology [place] [address]887 785.1 786.05 401.1 Office Visit 03/16/2013 10:00a Cardiology [place] [address] 785.1 786.05 Office Visit 02/03/2013 12:00p Cardiology [place] [address] 786.51 427.89 785.1 Office Visit 01/30/2013 11:41a Cardiology [place] 8[address] 427.89 Plan of Care Future Appointment(s):11/18/2018 8:00 am - Ancelmo Balderas DPM at Podiatry Bznfvx1511/28/2018 9:30 am - [employer] at Primary Care Nkwltc5212/05/2018 10:30 am - Ginna Chappell MS, MIGUELANGEL, BARRY at Primary Care Ppynnc6403/23/2019 8:45 am - Leah Wilson M.D. at Opkseyd25/12/2018 - Ginna Chappell MS, MIGUELANGEL, CNMZ00.00 Encntr for general adult medical exam w/o abnormal wukemylqI13.40 Other hammer toe(s) (acquired), unspecified footComments:Patient would like a second opinion with podiatry.H60.8x1 Other otitis externa, right earNew Medication:Ofloxacin (Otic) 0.3 %Comments:--Clean hearing aides, per manufacturers instructions--monitor response to ear drops and report nqzuaaxomV28.5 Hyperlipidemia, unspecifiedNew Labs:CBC W/Automated DiffComprehensive Metabolic PanelGlycohemoglobin A1cLDL Cholesterol ProfileVitamin D,25-HydroxyComments:Cholesterol well controlled with dietK62.89 Other specified diseases of anus and rectumComments:Patient has a F/U in November 2018 with colorectal surgeon, Dr Cohn-- Patient to monitor and report anymore rectal [id number] Essential (primary) hypertensionComments:B/P: 140/ 70 -- Low salt diet, continue to take Metoprolol Succinate ER 50 mg take one tablet by mouth every day, as ordered--We will monitor B/PG43.109 Migraine with aura, not intractable, w/o status migrainosusComments:--Continue with present treatment: Sumatriptan Succinate 25 mg one by mouth at onset of headache prodromal symptoms may repeat dose in 1 hour if needed--monitor and report any changes in conditionAllFollow up:Referral to Dr Balderas for second opinion RTO in 3 months with fasting labs 1 week before OV
--- OUTSIDE RECORDS SUMMARY | 2018-09-19 07:13 | XMS REPORT ---
:1935 External Reference #:[id number] Address [address] [place] [address] Phone [phone] Care Team Providers Name Role Phone Cintia Dominguez MD Primary Care Physician Unavailable Payers Type Date Identification Numbers Payment Provider Subscriber Workers Compensation Onset: Policy Number: Progressive -Nica Mncamara 2018 [id number] Group Number: [id number] [place] [employer] Name: fax: [phone] [place] [address] PayID: [id number] Problems Description No Information Family History Date Family Member(s) Problem(s) Comments Father Cancer Mother Alzheimer's Disease Social History Type Date Description Comments Marital Status Lives With Occupation Retired ETOH Use consumes 1-2 beers per day Smoking Patient is a former smoker Recreational Drug Use Denies Drug Use Daily Caffeine Consumes on average 2 cups of regular coffee per day Exercise Type/Frequency Exercises regularly Allergies, Adverse Reactions, Alerts Date Description Reaction Status Severity Comments 08/15/2018 NKDA active Medications Medication Date Status Form Strength Qnty SIG Indications Ordering Provider Metoprolol 00/ Active Tablets ER 50mg 1 po Angelica, Succinate ER 0000 24HR qdanalia Chamberlain MD Omeprazole 00/ Active Capsules 40mg [address] yu Tamsulosin HCL 00/ Active Capsules 0.4mg 1 po Angelica, 0000 qdanalia Chamberlain MD Levocetirizine 00/ Active Tablets 5mg 1 po Angelica, Dihydrochloride 0000 qday MD Cintia Tylenol 00// Active Tablets 325mg take 2 Unknown 0000 tabs as needed every 6 hours for pain/fev er Vital Signs Date Vital Result Comment 09/07/2018 Height 68 inches 5'8" Weight 205.00 lb BP Systolic Sitting 110 mmHg BP Diastolic Sitting 68 mmHg Respiratory Rate 17 /min Pain Level 5 positions will make his pain worse BMI (Body Mass Index) 31.2 kg/m2 08/15/2018 Height 68 inches 5'8" Weight 205.00 lb BP Systolic Sitting 138 mmHg BP Diastolic Sitting 74 mmHg Respiratory Rate 17 /min Pain Level 4 tylenol for pain BMI (Body Mass Index) 31.2 kg/m2 Results Description No Information Procedures Description No Information Encounters Type Date Location Provider CPT E/M Dx Office Visit 08/15/2018 [place] [address] S76.201A 10:30a Of [employer] AT [place] S76.301A Plan of Care 09/07/2018 - John Min, MDS76.201D Unsp injury of adductor musc/fasc/tend right thigh, subsNew Therapy:Physical TherapyFollow up:Follow up: As jyhwfsX23.301D Unsp inj msl/fasc/tnd post grp at [facility], right thigh, subsNew Therapy:Physical Therapy
--- OUTSIDE RECORDS SUMMARY | 2018-09-19 07:14 | XMS REPORT ---
:1935 External Reference #:[id number] Author Organization [facility] Address [address], [address] [place] [address] Phone [phone] Care Team Providers Name Role Phone Cintia Dominguez MD Care Team Information Professional Engineer Unavailable Cintia Dominguez MD Primary Care Physician Unavailable Payers Type Date Identification Numbers Payment Provider Subscriber Medicare Primary Policy Number: [id number] Medicare Wale Mcnamara PayID: [id number] [address] [place] [address] [facility] Policy Number: [id number] [facility] Heather Mcnamara PayID: [id number] [address] [place] [address] Problems Date Description Provider Status Onset: 02/03/2013 [...] Form Strength Qnty SIG Indications Ordering Provider Omeprazole 06/20/ Active Capsules 40mg 30cap Take one R12 Gagen, 2017 DR aldana every Thania morning e, MS, TIRE WRAPPER-C, CNM Drysol 12/14/ Active Solution 20% 60ml apply to Angelica, 2017 affected MD Cintia area every day Levocetirizine 04/07/ Active Tablets 5mg 90tab 1 tab by Angelica Dihydrochloride 2016 s mouth MD Cintia daily as needed Benadryl Allergy 02/05/ Active Capsules 25mg 60cap 2 tabs po Angelica, 2016 s at hs MD Cintia Sumatriptan 08/24/ Active Tablets 25mg 180ta one by Angelica, Succinate 2015 bs mouth at MD Cintia onset of headache prodromal symptoms may repeat dose in 1 hour if needed Dicyclomine HCL 07/15/ Active Capsules 10mg 360ca 1 cap by Angelica 2015 ps mouth MD Cintia every 6 h as needed for abdominal pain Aspirin / Active Tablets DR 325mg as needed Unknown 0000 Ipratropium / Active Solution 0.03% [place] 2 Unknown [place] 0000 Sprays In Each Nostril Every Day prn Fish Oil / Active Capsules 600mg 1 cap by Unknown 0000 mouth daily Metamucil Free & / Active Powder 43% 1 table Unknown Natural 0000 spoon with 12 ounces water daily per pt as needed Metoprolol / Active Tablets ER 50mg 90tab Take One R00.2 Angelica, Succinate ER 0000 24HR s Tablet By [...] Tablets 500mg 14tab 1 tab by J20.9 Nell 2017 - s mouth , 03/21/ twice a Yaniv, 2017 day M.DGeorge Omeprazole 07/08/ Hx Capsules 20mg 90cap 1 by mouth R12 Alejo 2017 - DR aldana every day Leno 06/20/ 2017 Lidocaine Viscous 07/08/ Hx Solution 2% 600ml 1 unit Alejo 2017 - apply to Leno, 08/31/ affected 2017 area twice a day as needed Citroma 06/15/ Hx Solution 1.745GM/3 296ml drink 1 K62.5 Alejo 2016 0ML bottle at Leno 12pm (noon)the day before the procedure Dulcolax 06/15/ Hx Tablets DR 5mg 4tabs 4 tablets K62.5 2016 taken Leno lemons, 8pm the MD day before the procedure Golytely 06/15/ Hx Solution 236gm 4000m drink half 2016 Rec l Leno peraza evening before and half the morning of [...] Unknown 0000 - at hs 2016 Multivitamins 00/ Hx Tablets 1 po qd Unknown 0000 Fish Oil / Hx Capsules 1200mg by mouth Unknown 0000 qd Flomax / Hx Capsules 0.4mg by mouth Unknown 0000 - every day 2015 Tamsulosin HCL / Hx Capsules 0.4mg 90cap 1 caps by Angelica, 0000 - s mouth MD Cintia day 2016 Sumatriptan / Hx Tablets 25mg one by Unknown Succinate 0000 mouth at onset of headache prodromal symptoms may repeat dose in 1 hour if needed Immunizations CPT Code Status Date Vaccine Lot # [id number] Given 08/18/2018 Influenza High Dose 06437 Given 03/21/2018 Tdap injection 90492 Given 09/15/2017 Influenza High Dose [id number] Given 09/16/2016 Influenza Vaccine (Fluzone) Age 3 And Older [id number] Vital Signs Date Vital Result Comment 07/28/2018 BP Systolic Sitting Left Arm 138 mmHg BP Diastolic Sitting Left Arm 70 mmHg Heart Rate 46 /min Respiratory Rate 16 /min Height 68 inches 5'8" Weight 211.00 lb BMI (Body Mass Index) 32.1 kg/m2 BSA (Body Surface Area) 2.09 m2 [place] body weight in kilograms 70 07/07/2018 BP Systolic Sitting Left Arm 145 mmHg BP Diastolic Sitting Left Arm 81 mmHg Heart Rate 66 /min Respiratory Rate 16 /min Height 68 inches 5'8" Weight 209.00 lb BMI (Body Mass Index) 31.8 kg/m2 BSA (Body Surface Area) 2.08 m2 [place] body weight in kilograms 70 O2 % BldC Oximetry 95 % 06/17/2018 BP Systolic Sitting Left Arm 132 mmHg BP Diastolic Sitting Left Arm 74 mmHg Body Temperature 98.1 F Heart Rate 63 /min Respiratory Rate 18 /min Height 68 inches 5'8" Weight 210.00 lb BMI (Body Mass Index) 31.9 kg/m2 BSA (Body Surface Area) 2.09 m2 [place] body weight in kilograms 70 O2 % [...] kg/m2 BSA (Body Surface Area) 2.08 m2 [place] body weight in kilograms 70 02/01/2018 BP Systolic Sitting Right Arm 120 mmHg manual BP Diastolic Sitting Right Arm 64 mmHg manual Body Temperature 97.6 F Heart Rate 56 /min Respiratory Rate 18 /min Height 68 inches 5'8" Weight 209.00 lb BMI (Body Mass Index) 31.8 kg/m2 BSA (Body Surface Area) 2.08 m2 [place] body weight in kilograms 70 O2 % BldC Oximetry 94 % Ra 09/15/2017 BP Systolic 146 mmHg BP Diastolic 78 mmHg Heart Rate 57 /min Height 68 inches 5'8" Weight 210.38 lb BMI (Body Mass Index) 32.0 kg/m2 BSA (Body Surface Area) 2.09 m2 [place] body weight in kilograms 70 09/10/2017 BP [...] kg/m2 BSA (Body Surface Area) 2.10 m2 [place] body weight in kilograms 70 O2 % BldC Oximetry 96 % 08/31/2017 BP Systolic 118 mmHg BP Diastolic 78 mmHg Height 68 inches 5'8" Weight 211.00 lb BMI (Body Mass Index) 32.1 kg/m2 BSA (Body Surface Area) 2.09 m2 [place] body weight in kilograms 70 08/25/2017 BP Systolic Sitting Right Arm 106 mmHg BP Diastolic Sitting Right Arm 80 mmHg Body Temperature 97.5 F Heart Rate 43 /min Height 68 inches 5'8" Weight 207.00 lb BMI (Body Mass Index) 31.5 kg/m2 BSA (Body Surface Area) 2.07 m2 [place] body weight in kilograms 70 07/19/2017 BP Systolic Sitting Left Arm 132 mmHg BP Diastolic Sitting Left Arm 72 mmHg Heart Rate 54 /min Respiratory Rate 16 /min Height 68 inches 5'8" Weight 209.00 lb BMI (Body Mass Index) 31.8 kg/m2 BSA (Body Surface Area) 2.08 m2 [place] body weight in kilograms 70 07/08/2017 BP Systolic Sitting Left Arm 122 mmHg BP Diastolic Sitting Left Arm 80 mmHg Heart Rate 76 /min Respiratory Rate 16 /min Height 68 inches 5'8" Weight 210.00 lb BMI (Body Mass Index) 31.9 kg/m2 BSA (Body Surface Area) 2.09 m2 [place] body weight in kilograms 70 06/15/2017 BP Systolic Lying Down Resting Right Arm 130 mmHg BP Diastolic Lying Down Resting Right Arm 82 mmHg Heart Rate 46 /min Respiratory Rate 16 /min Height 68 inches 5'8" Weight 209.00 lb BMI (Body Mass Index) 31.8 kg/m2 BSA (Body Surface Area) 2.08 m2 [place] body weight in kilograms 70 04/07/2017 BP Systolic 124 mmHg irregular BP Diastolic 68 mmHg irregular Heart Rate 58 /min irregular Respiratory Rate 16 /min Height 68 inches 5'8" Weight 208.00 lb with shoes BMI (Body Mass Index) 31.6 kg/m2 BSA (Body Surface Area) 2.08 m2 [place] body weight in kilograms 70 O2 % [...] 1 Lymph % 35.6 % 20.0-42.0 1 Ma[place] % 10.7 % High 0.0-10.0 1 Eo% 3.6 % 0.0-6.6 1 Bas% 0.2 % 0.0-1.1 1 Neut# 2.93 K/uL 1.8-7.0 1 Lymph # 2.09 K/uL 1.0-4.0 1 Maury # 0.63 K/uL 0.0-0.8 1 Eos # [...] Poc Ketone, Urine Negative Negative Poc Specific [place], Urine <=1.005 Low 1.010-1.030 Poc Blood, Urine [...] 9 Lymph % 36.4 % 20.0-42.0 9 Maury % 11.3 % High 0.0-10.0 9 Eo% 2.8 % 0.0-6.6 9 Bas% 0.2 % 0.0-1.1 9 Neut# 3.03 K/uL 1.8-7.0 9 Lymph # 2.23 K/uL 1.0-4.0 9 Maury # 0.69 K/uL 0.0-0.8 9 Eos # [...] 21 Lymph % 40.4 % 20.0-42.0 21 [place] % 10.5 % High 0.0-10.0 21 Eo% 3.4 % 0.0-6.6 21 Bas% 0.2 % 0.0-1.1 21 Neut# 2.70 K/uL 1.8-7.0 21 Lymph # 2.39 K/uL 1.0-4.0 21 Maury # 0.62 K/uL 0.0-0.8 21 Eos # [...] 27 Alkaline Phosphatase 58 U/L 45-117 27 CBS W/Automated Diff 09/02/2017 White Blood Count [...] 27 Lymph % 25.9 % 20.0-42.0 27 Maury % 11.5 % High 0.0-10.0 27 Eo% 2.6 % 0.0-6.6 27 Bas% 0.2 % 0.0-1.1 27 Neut# 3.24 K/uL 1.8-7.0 27 Lymph # 1.40 K/uL 1.0-4.0 27 Maury # 0.62 K/uL 0.0-0.8 27 Eos # 0.14 K/uL 0.0-0.5 27 Baso # 0.01 K/uL 0.0-0.1 27 Laboratory test finding 09/02/2017 Prostate Specific 1.82 ng/mL < 4.0 27 , 29 Antigen Slide Review (SEE NOTE) 27, 30 LDL Cholesterol Profile 09/02/2017 Cholesterol 136 mg/dL <200 27, 31 Triglycerides 174 mg/dL High <150 27, 32 HDL Cholesterol 50 mg/dL >40 27, 33 LDL-Cholesterol 51 mg/dL < 100 27, 34 Ua Routine 08/25/2017 Urine Color YELLOW Yellow Urine Clarity CLEAR Clear Urine Glucose - Dipstick NEGATIVE mg/dL Negative Urine Bilirubin - Dipstick NEGATIVE Negative Urine Ketone NEGATIVE mg/dL Negative Urine Specific [place] 1.020 1.010-1.030 Urine Blood SMALL Negative Urine [...] 38 Lymph % 35.9 % 17.0-56.0 38 Maury % 10.6 % High 0.0-10.0 38 Eo% 4.0 % 0.0-5.0 38 Bas% 0.4 % 0.1-1.0 38 Neut# 2.35 K/uL 1.8-7.0 38 Lymph # 1.72 K/uL Low 1.8-7.0 38 Maury # 0.51 K/uL 0.0-0.8 38 Eos # [...] % 33.0-73.0 Lymph % 33.3 % 17.0-56.0 Maury % 9.9 % 0.0-10.0 Eo% 4.2 % 0.0-5.0 Bas% 0.2 % 0.1-1.0 Neut# 2.86 K/uL 1.8-7.0 Lymph # 1.82 K/uL 1.8-7.0 Maury # 0.54 K/uL 0.0-0.8 Eos # 0.23 [...] RBC morphology essentially normal. Platelet estimate=NORMAL 8 Aircraft Captain: [id number] K92.1 10 Normal (<60 Droplets/HPF) 11 Normal (<100 Droplets/HPF) Performed at: RN - [facility] [address] [id number] Duct Maker: Moraima Macdonald MD, Phone: [phone] 12 Performed at: [facility] [id number] Duct Maker: Moraima Macdonald MD, Phone: [phone] 13 Negative 0 - 19 Weak Positive [...] assay methods cannot be used interchangeably. Method: eTapestry [place] Chemiluminescent immunoassay. 30 Instrument flagged sample for [...] for more aggressive treatment of glycemia. The [place] [employer] recommends that a primary goal [...] assay methods cannot be used interchangeably. Method: eTapestry [place] Chemiluminescent immunoassay. 46 Note: Persistent reduction for [...] Date CPT Code Description Status Comment 08/05/2018 55870 EKG Interpretation And Report Completed Only 07/13/2018 Colonoscopy Completed Document: 07/13/18 - Operative Report-EGD/Colon Document: 07/13/18 - Pathology/Biopsy Result Document: 07/13/18 - Flex Sig/Banding & EGD Pics 07/13/2018 98739 Sigmoidoscope With Biopsy Completed 07/13/2018 22470 EGD With Biopsy Completed 03/22/2018 86477 Measurement Post Voiding Completed Residual Urine By Ultrasound,Non-Imaging 03/22/2018 80321 complex uroflowmetry Completed electronic 09/10/2017 17117 complex uroflowmetry Completed electronic 09/10/2017 11527 Cystoscopy Completed 09/10/2017 84521 Measurement Post Voiding Completed Residual Urine By Ultrasound,Non-Imaging 07/05/2017 51928 EGD With Biopsy Completed 07/05/2017 29743 Hemorrhoidectomy, single Completed ligature 07/05/2017 57225 Colonoscopy Completed 06/15/2017 55763 Anoscopy Completed 10/05/2016 67291 Bronchospasm Provocation Completed Evaluation Multi Spirometric Determinati 10/05/2016 46749 Spirometry Completed 10/05/2016 64675 Spirometry Completed 09/25/2016 69607 Bronchospasm Provocation Completed Evaluation Multi Spirometric Determinati 07/30/2016 54955 EKG-Tracing And Report Completed 06/09/2016 52538 Holter Monitor 24HR Completed Inter/Report 06/09/2016 48309 Echocardiogram Complete Completed 06/01/2016 48460 EKG-Tracing And Report Completed 10/29/2014 71052 Echocardiogram Complete Completed 08/23/2014 Colonoscopy Completed Document: 08/23/08 - Op Report- Colonscopy & BX 02/19/2014 83599 Holter Monitor 24HR Completed Inter/Report 11/24/2013 42281 Holter Monitor 24HR Completed Inter/Report 10/30/2013 50316 EKG-Tracing And Report Completed 03/16/2013 92584 Holter Monitor 24HR Completed Inter/Report 02/03/2013 74844 EKG-Tracing And Report Completed 01/30/2013 72614 Echocardiogram Complete Completed 01/30/2013 20209 Holter Monitor 24HR Completed Inter/Report 11/16/2012 41197 ECHO Transthoracic Inc Completed Performance Continuous Electrocardio Mon Encounters Type Date Location Provider CPT E/M Dx Office Visit 07/28/2018 9:30[place] [address] K29.80 K62.89 Office Visit 07/07/2018 1:45p [place] [address] K92.1 Office Visit 06/17/2018 3:30p [place], [address] K92.1 BARRY MEANS N40.1 Office Visit 03/22/2018 8:30a Urology Leah Wilson M.D. 60915 R31.0 N40.1 Office Visit 03/21/2018 10:20a [place] [address] I10 E78.5 N40.1 K43.9 Z23 Office Visit 02/01/2018 3:00p Primary Care Office Yaniv Camejo, [address]23 J20.9 M.D. Office Visit 09/15/2017 9:40a [place] [address] N40.1 I10 E78.5 Z23 Office Visit 09/10/2017 10:00a Urology Leah Wilson M.D. 96185 R31.0 N40.1 Office Visit 09/02/2017 9:30a Urology Leah Wilson M.D. 31543 R31.0 Office Visit 08/31/2017 11:00a Surgical Office Fer Flores 63928 K43.9 MERON RAND Office Visit 08/25/2017 3:40p [place] [address] K43.9 R31.9 Office Visit 07/19/2017 10:20a Cardiology Office [place] Laguerre 55917 I44.7 MBrody, FACC R94.31 Office Visit 07/08/2017 2:45[place] [address] R12 K64.1 K57.30 Office Visit 06/15/2017 10:30[place] [address] R12 K62.5 Office Visit 04/07/2017 3:40p [place] [address] J30.9 J02.9 Office Visit 09/16/2016 11:20a [place] [address] I10 N40.0 D22.9 R19.7 R05 Z23 Office Visit 07/30/2016 11:20a Cardiology Office [place] Laguerre 86912 Z01.810 MGeorgeDGeorge, [facility] I44.7 I42.9 Office Visit 07/22/2016 8:40a [place] [address] I10 I44.7 M79.671 R00.2 Office Visit 07/15/2016 8:40a [place] [address] I10 I44.7 J30.9 Z96.642 N40.0 Office Visit 06/01/2016 10:20a Cardiology Office [place] LaguerreGeorge, [address] R00.2 M.D., [facility] I44.7 Office Visit 05/10/2015 10:30a Cardiology Office [place] LaguerreGeorge, [address] 785.1 M.D., FACC 401.1 Office Visit 11/01/2014 10:40a [place] [address] 785.1 401.1 786.05 Office Visit 04/26/2014 1:10p Cardiology [place] [address] 785.1 401.1 Office Visit 12/06/2013 10:40a [place] [address] 785.1 786.05 Office Visit 10/30/2013 11:40a Card[place] [address] 785.1 786.05 401.1 Office Visit 09/14/2013 2:50p [place] [address] 785.1 786.05 401.1 Office Visit 03/16/2013 10:00a Cardiology [place] [address] 785.1 786.05 Office Visit 02/03/2013 12:00p [place] [address] 786.51 427.89 785.1 Office Visit 01/30/2013 11:41a [place] [address] 427.89 Plan of Care Future Appointment(s):03/23/2019 8:45 rosenda - Leah Wilson M.D. at Urology
[2018-09-19 07:22] VITALS: BP 136/67
--- NOTE | 2018-09-19 07:45 | ED ---
Throat Pain/Nasal Congestion - HPI Summary HPI Summary: 83 yr old male with FB left ear. The patient put his hearing aid in with the wrong caps on ends, and one is stuck in the left external ear canal. No pain or other issues. This occurred last evening. 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 Respiratory History: Reports: Hx Sleep Apnea - NO MACHINE GI History: Reports: Hx Gastroesophageal Reflux Disease - ON MEDICATION FOR, Hx Hiatal Hernia - DIAGNOSED 40 YEARS AGO- STATES NO PROBLEMS WITH Musculoskeletal History: Reports: Hx Arthritis - WRISTS, KNEES Sensory History: Reports: Hx Cataracts - LEFT EYE, Hx Contacts or Glasses - GLASSES INST GIVEN Denies: Hx Hearing Aid Opthamlomology History: Reports: Hx Cataracts - LEFT EYE, Hx Contacts or Glasses - GLASSES INST GIVEN Neurological History: Reports: Hx Migraine - MONTHLY- VISUAL- PRN ASPIRIN - Surgical History Surgery Procedure, Year, and Place: Multiple Orthopedic Surgeries. 1998 TOTAL L HIP [facility]. 2005 REVISION L HIP [facility]. 2013 R CATARACT [facility]. BILATERAL MACOPLASTY-2014 Hx Anesthesia Reactions: No Infectious Disease History: No Infectious Disease History: Reports: Hx Shingles Denies: Traveled Outside the [place] in Last 30 Days - Family History Known Family History: Positive: None, Other - ca, DEMENTIA - Social History Alcohol Use: Daily Substance Use Type: Reports: None Smoking Status (MU): Former Smoker Type: Cigarettes Review of Systems Constitutional: Negative Positive: Other - FB left external ear canal All Other Systems Reviewed And Are Negative: Yes Physical Exam Triage Information Reviewed: Yes Vital Signs On Initial Exam: Initial Vitals Temp Pulse Resp BP Pulse Ox 97.7 F 61 16 136/67 97 09/19/18 07:18 09/19/18 07:18 09/19/18 07:18 09/19/18 07:18 09/19/18 07:18 Vital Signs Reviewed: Yes Appearance: Positive: Well-Appearing, No Pain Distress Skin: Positive: Warm, Skin Color Reflects Adequate Perfusion Head/Face: Positive: Normal Head/Face Inspection Eyes: Positive: EOMI ENT: Positive: Other - left external ear canal with FB mid way in appearing to be cap from hearing aid. Neck: Positive: Nontender Respiratory/Lung Sounds: Positive: Other - normal effort Abdomen Description: Negative: Distended Musculoskeletal: Positive: Strength/ROM Intact Neurological: Positive: Sensory/Motor Intact, Alert, Oriented to Person Place, Time, CN Intact II-III Psychiatric: Positive: Normal Diagnostics - Vital Signs Vital Signs Temp Pulse Resp BP Pulse Ox 09/19/18 07:18 97.7 F 61 16 136/67 97 - Laboratory Lab Statement: Any lab studies that have been ordered have been reviewed, and results considered in the medical decision making process. EENT Course/Dx - Course Course Of Treatment: 83 yr old with FB in mid external ear canal. To ENT for removal today and if he cannot get appointment he will go to the ER. - Diagnoses Provider Diagnoses: Ear foreign body Discharge - Sign-Out/Discharge Documenting (check all that apply): Patient Departure All imaging exams completed and their final reports reviewed: No Studies - Discharge Plan Condition: Good Disposition: HOME-RECOMMEND TO ED Patient Education Materials: Ear Foreign Body (ED) Referrals: Micah Oseguera MD [Medical Doctor] - ([phone] [facility] [place], [place]) Cintia Dominguez MD [Primary Care Provider] - Rickie Merchant MD [Medical Doctor] - (Call this morning to see if available) Additional Instructions: You should go to the ER for removal of the Foreign body in your ear, unless you are able to make an appointment for today with one of the ENT specialists I have listed. - Billing Disposition and Condition Condition: GOOD Disposition: Home-Recommend to ED
== END 2018-09-19 07:35 | disposition home health service (06) ==
LOC: UCCORT 07:00
DX: T16.2XXA Foreign body in left ear, initial encounter (principal); K21.9 Gastro-esophageal reflux disease without esophagitis; Z79.899 Other long term (current) drug therapy; Z87.891 Personal history of nicotine dependence; X58.XXXA Exposure to other specified factors, initial encounter; Y92.9 Unspecified place or not applicable
CPT/HCPCS: 99211; G0463

== ENCOUNTER 2019-05-04 08:03 | Emergency (ER) | payer MEDICARE, BC ==
--- OUTSIDE RECORDS SUMMARY | 2019-05-04 08:12 | XMS REPORT | Continuity of Care Document ---
:1935 External Reference #:[id number] Author Name Leah Wilson M.D. Address [address] [facility] [address] [place] [address] Care Team Providers Name Role Phone Jerald Matthews M.D. Care Team Information Website Admin Unavailable Cintia Dominguez MD Primary Care Physician Unavailable Payers Date Identification Numbers Payment Provider Subscriber Policy Number: [id number] Medicare Wale Mcnamara PayID: [id number] [address] [place] [address] Policy Number: [id number] [facility] Heather Mcnamara PayID: [id number] [address] [place] [address] Advance Directives Description No Information Available Problems Active Problems Provider Date Palpitations Harpal Stevens MD, PhD Onset: 02/03/2013 Benign essential hypertension Dallas Laguerre M.D., Onset: 05/10/2015 FACC Left bundle branch block Dallas Laguerre M.D., Onset: 06/01/2016 FACC Preoperative cardiovascular Dallas Laguerre M.D., Onset: 07/30/2016 examination FACC Cardiomyopathy, unspecified Dallas Laguerre M.D., Onset: 07/30/2016 FACC Electrocardiogram abnormal Dallas Laguerre M.D., Onset: 07/19/2017 FACC Hernia of anterior abdominal wall Fer Flores MD,FACS Onset: 08/31/2017 without obstruction AND without gangrene Genaro hematuria Leah Wilson M.D. Onset: 09/02/2017 Benign prostatic hypertrophy with Leah Wilson M.D. Onset: 09/10/2017 outflow obstruction Acute bronchitis Yaniv Camejo M.D. Onset: 02/01/2018 Hyperlipidemia Cintia Dominguez MD Onset: 03/21/2018 Immunization Cintia Dominguez MD Onset: 03/21/2018 Melena Leno Dhillon MD Onset: 07/07/2018 Duodenitis Leno Dhillon MD Onset: 07/28/2018 Other specified diseases of anus and Leno Dhillon MD Onset: 07/28/2018 rectum Family History Date Family Member(s) Observation Comments General No known family history of CAD. 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 Independent with all ADL's Tobacco Use Start: Unknown End: Quit Unknown Smokeless Tobacco Never Used Smokeless Tobacco ETOH Use Drinks 2 Alcoholic Beverages Per Day Tobacco Use Start: Unknown End: Patient is a former smoker Recreational Drug Use Marijuana Smoking Status Reviewed: 03/03/19 Patient is a former smoker Allergies, Adverse Reactions, Alerts Active Allergies Reaction Severity Comments Date NKDA 01/31/2013 Hay fever 11/14/2018 Medications Active Medications SIG Qnty Indications Ordering Date Provider Atrovent use 2 sprays in 15ml Gagen, 12/07/2018 0.06% Solution each nostril MS Ginna, twice a day RN ACUTE-C, CNBrigitte Drysol use as directed 60ml R61 Gagen, 12/06/2018 20% Solution once a day under MS Ginna, both armpits RN ACUTE-C, CNM Omeprazole take one every 90caps R12 Angelica, Cintia, 06/20/2018 40mg Capsules morning MD DAVID Drysol apply to affected 60ml Angelica, Cintia, 12/14/2017 20% Solution area every day Levocetirizine Take One Tablet 90tabs Angelica, Cintia, 04/07/2017 Dihydrochloride By Mouth Every MD 5mg Day as Needed Tablets Sumatriptan Succinate one by mouth at 180tabs Cintia Dominguez, 07/15/2016 onset of headache MD 25mg Tablets prodromal symptoms may repeat dose in 1 hour if needed Dicyclomine HCL 1 cap by mouth 360caps Cintia Dominguez, 07/15/2016 10mg every 6 h as MD Capsules needed for abdominal pain Centrum Adults 1 tablet by mouth Unknown Tablets daily Metamucil Smooth 1 tablespoon Unknown Texture mixed with water 28.3% Powder daily, as needed Melatonin ER 1 tab by mouth at Unknown 5mg Tablets bedtime ER Aleve 2 by mouth every Unknown 220mg Capsules day if needed for pain Tamsulosin HCL take one capsule 90caps Steve, 0.4mg by mouth every Ruperto Lynn Capsules day Metoprolol Succinate Take One Tablet 90tabs R00.2 Cintia Dominguez, ER By Mouth Every MD 50mg Tablets ER 24HR Day Fish Oil 1 cap by mouth Unknown 600mg Capsules daily Aspirin as needed Unknown 325mg Tablets DR Alexander Medications Proair HFA take 1 or 2 8.500gm R06.02 Gagen, 12/06/2018 - 108(90Base) puffs every 4-6 MS Ginna, 03/06/2019 mcg/Act Aerosol hours for sob RN ACUTE-C, CNM as needed Ofloxacin (Otic) Use 10 drops in 10ml H60.8x1 Gagen, 09/02/2018 - 0.3% right ear four GinnaMS derrek, 11/14/2018 Solution times a day for RN ACUTE-C, CNM 7 days Fleet Enema 1 unit per 133ml K92.1 Leno Dhillon, 07/07/2018 - rectum once at 07/28/2018 7-19GM/118ML Enema night and once in morning Doxycycline 2 cap by mouth 2caps Cintia Dominguez MD 04/07/2018 - Monohydrate once 06/17/2018 100mg Capsules Cefuroxime Axetil 1 tab by mouth 14tabs J20.9 [place]en, 02/01/2018 - 500mg twice a day Ruperto Purvis 03/21/2018 Tablets Omeprazole 1 by mouth 90caps R12 Leno Dhillon 07/08/2017 - 20mg every day 06/20/[address] Shahid Viscous 1 unit apply to 600ml Leno Dhillon 07/08/2017 - 2% affected area 08/31/2017 Solution twice a day as needed Golytely drink half the 4000ml Leno Dhillon 06/15/2017 - 236gm Solution evening before Unknown Rec and half the morning of the procedure (1 cup every 10') Dulcolax 4 tablets taken 4tabs K62.5 Leno Dhillon 06/15/2017 - 5mg Tablets DR lemons 8pm the day MD Joya before the procedure Citroma drink 1 bottle 296ml K62.5 Leno Dhillon, 06/15/2017 - 1.745GM/30ML at 12pm MD Joya Solution (noon)the day before the procedure Omeprazole 1 by mouth Cintia Dominguez MD 04/07/2017 - 40mg every day 07/08/[address] Romano Allergy 2 tabs po at hs 60caps Cintia Dominguez MD 02/05/2017 - 25mg 12/06/2018 Capsules Azelastine HCL 1-2 sprays in 30ml Cintia Dominguez MD 12/14/2016 - (Nasal) both nasal 04/07/2017 0.1% Solution passages as needed Ventolin HFA 1-2 puffs every 8gm Cintia Dominguez MD 09/16/2016 - 4-6 hours as Unknown 108(90Base) mcg/Act needed for Aerosol cough and shortness of breath Levocetirizine 1 tab by mouth 90tabs Cintia Dominguez MD 07/15/2016 - Dihydrochloride daily 04/07/2017 5mg Tablets Metoprolol Succinate 1/2 po qd 180tabs 785.1 Harpal Stevens, 09/14/2013 - ER , PhD Unknown 50mg Tablets ER 24HR Metoprolol Succinate 1 po qd 90tabs 785.1 Harpal Stevens, 02/03/2013 - ER , PhD 09/14/2013 25mg Tablets ER 24HR Aspirin Ec 1 po as Needed Harpal Stevens, 02/03/2013 - 325mg , PhD Unknown Tablets Diphenhydramine HCL take two Unknown - capsule by 12/06/2018 25mg Capsules mouth every night to improve sleep Metamucil Free & 1 table spoon Unknown - Natural with 12 ounces 11/14/2018 43% Powder water daily per pt as needed Sumatriptan Succinate one by mouth at Unknown - onset of Unknown 25mg Tablets headache prodromal symptoms may repeat dose in 1 hour if needed Ipratropium [place] Greer 2 Sprays Unknown - In Each Nostril 11/14/2018 0.03% Solution Every Day prn Tamsulosin HCL 1 caps by mouth Cintia Galeano MD - 0.4mg every day 04/07/2017 Capsules Flomax by mouth every Unknown - 0.4mg Capsules day 07/15/2016 Fish Oil by mouth qd Unknown - 1200mg Unknown Capsules Multivitamins 1 po qd Unknown - Tablets Unknown Benadryl 2 tabs po at hs Unknown - 25mg Capsules 02/05/2017 Aleve prn Unknown - 220mg Capsules 06/20/2018 Levocetirizine po qd Unknown - Dihydrochloride Unknown 5mg Tablets Tamsulosin HCL po qd Unknown - 0.4mg Unknown Capsules Finasteride 1 po qd 30tabs Unknown - 5mg Tablets Unknown Viagra prn Unknown - 25mg Tablets Unknown Omeprazole 1 by mouth Cintia Galeano MD - 20mg every day 04/07/2017 Capsules Immunizations CPT Code Status Date Vaccine Lot # [id number] Given 08/18/2018 Influenza High Dose 34930 Given 03/21/2018 Tdap injection 29602 Given 09/15/2017 Influenza High Dose [id number] Given 09/16/2016 Influenza Vaccine (Fluzone) Age 3 And Older [id number] Vital Signs Date Vital Result Comment 03/28/2019 2:07pm BP Systolic 115 mmHg BP Diastolic 63 mmHg Body Temperature 98.1 F Heart Rate 65 /min Respiratory Rate 16 /min Height 68 inches 5'8" per pt Weight 210.00 lb BMI (Body Mass Index) 31.9 kg/m2 BSA (Body Surface Area) 2.09 m2 Britton body weight in kilograms 70 kg O2 % BldC Oximetry 95 % Pain Level 2 Lumbago, both wrist 03/06/2019 10:19am BP Systolic Sitting Left Arm 132 mmHg BP Diastolic Sitting Left Arm 70 mmHg Body Temperature 98.3 F Heart Rate 58 /min Respiratory Rate 24 /min Weight 213.00 lb O2 % BldC Oximetry 96 % ra 01/19/2019 1:06pm BP Systolic Sitting Left Arm 138 mmHg BP Diastolic Sitting Left Arm 70 mmHg Body Temperature 98.0 F Heart Rate 54 /min Respiratory Rate 18 /min Height 68 inches 5'8" Weight 216.00 lb BMI (Body Mass Index) 32.8 kg/m2 BSA (Body Surface Area) 2.11 m2 Britton body weight in kilograms 70 kg O2 % BldC Oximetry 93 % Ra 12/06/2018 10:30am BP Systolic Sitting Right Arm 130 mmHg BP Diastolic Sitting Right Arm 68 mmHg Body Temperature 98.0 F Heart Rate 75 /min reg Respiratory Rate 18 /min Height 68 inches 5'8" Weight 216.00 lb BMI (Body Mass Index) 32.8 kg/m2 BSA (Body Surface Area) 2.11 m2 Britton body weight in kilograms 70 kg O2 % BldC Oximetry 96 % ra 11/18/2018 8:13am BP Systolic 139 mmHg BP Diastolic 72 mmHg Body Temperature 98.8 F Heart Rate 55 /min Respiratory Rate 16 /min Height 68 inches 5'8" Weight 210.00 lb BMI (Body Mass Index) 31.9 kg/m2 BSA (Body Surface Area) 2.09 m2 Britton body weight in kilograms 70 kg O2 % BldC Oximetry 95 % 09/02/2018 10:48am BP Systolic Sitting Right Arm 140 mmHg BP Diastolic Sitting Right Arm 70 mmHg Body Temperature 97.1 F Heart Rate 59 /min Respiratory Rate 12 /min Height 68 inches 5'8" Weight 216.00 lb BMI (Body Mass Index) 32.8 kg/m2 BSA (Body Surface Area) 2.11 m2 Britton body weight in kilograms 70 kg O2 % BldC Oximetry 96 % 07/28/2018 9:38am BP Systolic Sitting Left Arm 138 mmHg BP Diastolic Sitting Left Arm 70 mmHg Heart Rate 46 /min Respiratory Rate 16 /min Height 68 inches 5'8" Weight 211.00 lb BMI (Body Mass Index) 32.1 kg/m2 BSA (Body Surface Area) 2.09 m2 Britton body weight in kilograms 70 kg 07/07/2018 2:42pm BP Systolic Sitting Left Arm 145 mmHg BP Diastolic Sitting Left Arm 81 mmHg Heart Rate 66 /min Respiratory Rate 16 /min Height 68 inches 5'8" Weight 209.00 lb BMI (Body Mass Index) 31.8 kg/m2 BSA (Body Surface Area) 2.08 m2 Britton body weight in kilograms 70 kg O2 % BldC Oximetry 95 % 06/17/2018 3:30pm BP Systolic Sitting Left Arm 132 mmHg BP Diastolic Sitting Left Arm 74 mmHg Body Temperature 98.1 F Heart Rate 63 /min Respiratory Rate 18 /min Height 68 inches 5'8" Weight 210.00 lb BMI (Body Mass Index) 31.9 kg/m2 BSA (Body Surface Area) 2.09 m2 Britton body weight in kilograms 70 kg O2 % BldC Oximetry 98 % Ra 03/22/2018 8:25am BP Systolic Sitting Left Arm 158 mmHg BP Diastolic Sitting Left Arm 66 mmHg Body Temperature 97.9 F Heart Rate 64 /min Respiratory Rate 14 /min Weight 212.00 lb O2 % BldC Oximetry 96 % Pain Level 0 03/21/2018 10:31am BP Systolic Sitting Right Arm 122 mmHg BP Diastolic Sitting Right Arm 69 mmHg Heart Rate 54 /min Respiratory Rate 20 /min Height 68 inches 5'8" Weight 208.00 lb BMI (Body Mass Index) 31.6 kg/m2 BSA (Body Surface Area) 2.08 m2 Britton body weight in kilograms 70 kg 02/01/2018 3:10pm BP Systolic Sitting Right Arm 120 mmHg manual BP Diastolic Sitting Right Arm 64 mmHg manual Body Temperature 97.6 F Heart Rate 56 /min Respiratory Rate 18 /min Height 68 inches 5'8" Weight 209.00 lb BMI (Body Mass Index) 31.8 kg/m2 BSA (Body Surface Area) 2.08 m2 Britton body weight in kilograms 70 kg O2 % BldC Oximetry 94 % Ra 09/15/2017 9:42am BP Systolic 146 mmHg BP Diastolic 78 mmHg Heart Rate 57 /min Height 68 inches 5'8" Weight 210.38 lb BMI (Body Mass Index) 32.0 kg/m2 BSA (Body Surface Area) 2.09 m2 Britton body weight in kilograms 70 kg 09/10/2017 10:23am BP Systolic 151 mmHg BP Diastolic 75 mmHg Body Temperature 97.0 F 36.1c Heart Rate 66 /min Respiratory Rate 20 /min O2 % BldC Oximetry 94 % 09/02/2017 9:33am BP Systolic 123 mmHg BP Diastolic 66 mmHg Body Temperature 97.3 F 36.3c Heart Rate 69 /min Respiratory Rate 18 /min Height 68 inches 5'8" Weight 212.25 lb BMI (Body Mass Index) 32.3 kg/m2 BSA (Body Surface Area) 2.10 m2 Britton body weight in kilograms 70 kg O2 % BldC Oximetry 96 % 08/31/2017 11:04am BP Systolic 118 mmHg BP Diastolic 78 mmHg Height 68 inches 5'8" Weight 211.00 lb BMI (Body Mass Index) 32.1 kg/m2 BSA (Body Surface Area) 2.09 m2 Britton body weight in kilograms 70 kg 08/25/2017 3:44pm BP Systolic Sitting Right Arm 106 mmHg BP Diastolic Sitting Right Arm 80 mmHg Body Temperature 97.5 F Heart Rate 43 /min Height 68 inches 5'8" Weight 207.00 lb BMI (Body Mass Index) 31.5 kg/m2 BSA (Body Surface Area) 2.07 m2 Britton body weight in kilograms 70 kg 07/19/2017 10:26am BP Systolic Sitting Left Arm 132 mmHg BP Diastolic Sitting Left Arm 72 mmHg Heart Rate 54 /min Respiratory Rate 16 /min Height 68 inches 5'8" Weight 209.00 lb BMI (Body Mass Index) 31.8 kg/m2 BSA (Body Surface Area) 2.08 m2 Britton body weight in kilograms 70 kg 07/08/2017 2:35pm BP Systolic Sitting Left Arm 122 mmHg BP Diastolic Sitting Left Arm 80 mmHg Heart Rate 76 /min Respiratory Rate 16 /min Height 68 inches 5'8" Weight 210.00 lb BMI (Body Mass Index) 31.9 kg/m2 BSA (Body Surface Area) 2.09 m2 Britton body weight in kilograms 70 kg 06/15/2017 10:38am BP Systolic Lying Down Resting Right Arm 130 mmHg BP Diastolic Lying Down Resting Right Arm 82 mmHg Heart Rate 46 /min Respiratory Rate 16 /min Height 68 inches 5'8" Weight 209.00 lb BMI (Body Mass Index) 31.8 kg/m2 BSA (Body Surface Area) 2.08 m2 Britton body weight in kilograms 70 kg 04/07/2017 3:40pm BP Systolic 124 mmHg irregular BP Diastolic 68 mmHg irregular Heart Rate 58 /min irregular Respiratory Rate 16 /min Height 68 inches 5'8" Weight 208.00 lb with shoes BMI (Body Mass Index) 31.6 kg/m2 BSA (Body Surface Area) 2.08 m2 Britton body weight in kilograms 70 kg O2 % BldC Oximetry 94 % 09/16/2016 11:36am BP Systolic 112 mmHg BP Diastolic 66 mmHg Heart Rate 60 /min Height 68 inches 5'8" Weight 213.00 lb BMI (Body Mass Index) 32.4 kg/m2 BSA (Body Surface Area) 2.10 m2 07/30/2016 11:25am BP Systolic Sitting Right Arm 110 mmHg BP Diastolic Sitting Right Arm 76 mmHg Heart Rate 56 /min Height 68 inches 5'8" Weight 212.00 lb BMI (Body Mass Index) 32.2 kg/m2 BSA (Body Surface Area) 2.09 m2 07/22/2016 9:15am BP Systolic 118 mmHg BP Diastolic 72 mmHg Body Temperature 96.7 F Height 68 inches 5'8" Weight 208.00 lb BMI (Body Mass Index) 31.6 kg/m2 BSA (Body Surface Area) 2.08 m2 O2 % BldC Oximetry 98 % 07/15/2016 8:26am BP Systolic Sitting Right Arm 124 mmHg BP Diastolic Sitting Right Arm 70 mmHg Respiratory Rate 90 /min Height 68 inches 5'8" Weight 214.38 lb BMI (Body Mass Index) 32.6 kg/m2 BSA (Body Surface Area) 2.10 m2 O2 % BldC Oximetry 98 % 06/01/2016 10:29am BP Systolic Sitting Right Arm 122 mmHg BP Diastolic Sitting Right Arm 70 mmHg Heart Rate 53 /min Respiratory Rate 16 /min Height 68 inches 5'8" Weight 213.00 lb BMI (Body Mass Index) 32.4 kg/m2 BSA (Body Surface Area) 2.10 m2 05/10/2015 10:37am BP Systolic Sitting Left Arm 130 mmHg BP Diastolic Sitting Left Arm 72 mmHg Heart Rate 68 /min Respiratory Rate 14 /min Height 68 inches 5'8" Weight 207.00 lb BMI (Body Mass Index) 31.5 kg/m2 BSA (Body Surface Area) 2.07 m2 11/01/2014 10:43am BP Systolic Sitting Right Arm 114 mmHg BP Diastolic Sitting Right Arm 62 mmHg Heart Rate 54 /min Respiratory Rate 16 /min Height 68 inches 5'8" Weight 205.00 lb BMI (Body Mass Index) 31.2 kg/m2 BSA (Body Surface Area) 2.07 m2 04/26/2014 1:21pm BP Systolic Sitting Left Arm 112 mmHg BP Diastolic Sitting Left Arm 72 mmHg Heart Rate 62 /min Respiratory Rate 16 /min Height 68 inches 5'8" Weight 201.00 lb BMI (Body Mass Index) 30.6 kg/m2 BSA (Body Surface Area) 2.05 m2 12/06/2013 10:42am BP Systolic Sitting Right Arm 110 mmHg BP Diastolic Sitting Right Arm 68 mmHg Heart Rate 60 /min Respiratory Rate 16 /min Height 68 inches 5'8" Weight 203.00 lb BMI (Body Mass Index) 30.9 kg/m2 BSA (Body Surface Area) 2.06 m2 10/30/2013 11:47am BP Systolic Sitting Right Arm 134 mmHg BP Diastolic Sitting Right Arm 80 mmHg Heart Rate 60 /min Respiratory Rate 16 /min Height 68 inches 5'8" Weight 205.00 lb BMI (Body Mass Index) 31.2 kg/m2 BSA (Body Surface Area) 2.07 m2 09/14/2013 2:52pm BP Systolic Sitting Left Arm 144 mmHg BP Diastolic Sitting Left Arm 64 mmHg Heart Rate 72 /min Respiratory Rate 16 /min Height 68 inches 5'8" Weight 209.00 lb BMI (Body Mass Index) 31.8 kg/m2 BSA (Body Surface Area) 2.08 m2 03/16/2013 10:02am BP Systolic Sitting Right Arm 138 mmHg BP Diastolic Sitting Right Arm 60 mmHg Heart Rate 70 /min Respiratory Rate 16 /min Height 68 inches 5'8" Weight 200.00 lb BMI (Body Mass Index) 30.4 kg/m2 BSA (Body Surface Area) 2.04 m2 02/03/2013 12:06pm BP Systolic Sitting Right Arm 140 mmHg BP Diastolic Sitting Right Arm 72 mmHg Heart Rate 70 /min Respiratory Rate 16 /min Height 68 inches 5'8" Weight 197.00 lb BMI (Body Mass Index) 30.0 kg/m2 BSA (Body Surface Area) 2.03 m2 Results Test Date Facility Test Result H/L Range Note Urine Dipstick 03/28/2019 [facility] Ua Color Yellow Yellow Ua Clarity Clear Clear Ua Leuko Negative Negative Ua Nitrite Negative Negative Ua Urobilinogen 0.2 0.2 - 1.0 E.U./dL Ua Protein 15 High Negative Ua PH 6.0 Low 6.5-7.5 Ua Blood Negative Negative Ua Specific Martin 1.030 1.010-1.030 Ua Ketones Negative Negative Ua Bilirubin Negative Negative Ua Glucose Negative Negative CBC W/Automated Diff 03/03/2019 [facility] White Blood 5.3 K/uL N 3.4-10.[address] [place], [place] [id number] [phone] Red Blood Count 4.66 M/uL N 4.20-5.80 Hemoglobin 14.7 gm/dL N 12.8-17.0 Hematocrit 43.1 % N 38.0-48.0 Mean Cell Volume 92.5 fl N 80.0-96.0 Mean Corpuscular HGB 31.5 pg N 27.0-33.0 Mean Corpuscular HGB Conc 34.1 g/dL N 31.7-36.0 Platelet Count 203 K/uL N 155-360 Red Cell Distri Width SD 46.4 fl N 36-51 Red Cell Distri Width %CV 13.6 % N 11.6-15.8 Mean Platelet Volume 10.3 fl N 6.6-10.6 Neut% 50.7 % N 33.0-73.0 Lymph % 35.1 % N 20.0-42.0 [place] % 9.4 % N 0.0-10.0 Eo% 3.8 % N 0.0-6.6 Bas% 0.4 % N 0.0-1.1 Immature Grans 0.6 % N 0.0-5.0 NRBC % 0.0 /100WBC < 10/ 100 WBC Neut# 2.71 K/uL N 1.8-7.0 Lymph # 1.87 K/uL N 1.0-4.0 [place] # 0.50 K/uL N 0.0-0.8 Eos # 0.20 K/uL N 0.0-0.5 Baso # 0.02 K/uL N 0.0-0.1 Immature Grans Absolute 0.03 K/uL NRBC # 0.00 K/uL Comprehensive Metabolic 03/03/2019 [facility] Glucose 107 mg/dL High 74-[address] [place] [address] [phone] BUN 25 mg/dL High 7-18 Creatinine 1.1 mg/dL N 0.6-1.3 Glom Filtration Rate, Estimate >60 mL/min >60 If >60 mL/min >60 2 BUN/Creat 22.7 ratio Sodium 140 mmol/L N 136-145 Potassium 4.0 mmol/L N 3.5-5.1 Chloride 108 mmol/L High 98-107 Carbon Dioxide 25 mmol/L N 21-32 Anion Gap 7 mEq/L Low 8-16 Calcium 9.1 mg/dL N 8.5-10.1 Total Protein 7.3 g/dL N 6.4-8.2 Albumin 3.4 g/dL N 3.4-5.0 Globulin 3.9 g/dL N 1.9-4.3 Alb/Glob 0.9 ratio Bilirubin,Total 0.6 mg/dL N 0.2-1.0 Sgot/Ast 17 U/L N 15-37 SGPT/Alt 17 U/L N 12-78 Alkaline Phosphatase 56 U/L N 45-117 Glycohemoglobin A1c 03/03/2019 [facility] Glycohemoglobin 5.2 % N 4.2-6.[address] (A1c) [place], [place] [id number] [phone] eAG 103 mg/dL LDL Cholesterol Profile 03/03/2019 [facility] Cholesterol 132 mg/dL <[address] [place] [address] [phone] Triglycerides 80 mg/dL <150 5 HDL Cholesterol 49 mg/dL >40 6 LDL-Cholesterol 67 mg/dL < 100 7 CBC W/Automated Diff 12/02/2018 [facility] White Blood 5.3 K/uL N 3.4-10.[address] [place] [address] [phone] Red Blood Count 4.62 M/uL N 4.20-5.80 Hemoglobin 14.1 gm/dL N 12.8-17.0 Hematocrit 43.0 % N 38.0-48.0 Mean Cell Volume 93.1 fl N 80.0-96.0 Mean Corpuscular HGB 30.5 pg N 27.0-33.0 Mean Corpuscular HGB Conc 32.8 g/dL N 31.7-36.0 Platelet Count 168 K/uL N 155-360 Red Cell Distri Width SD 47.3 fl N 36-51 Red Cell Distri Width %CV 14.3 % N 11.6-15.8 Mean Platelet Volume 10.6 fL N 6.6-10.6 Neut% 47.6 % N 33.0-73.0 Lymph % 38.3 % N 20.0-42.0 [place] % 10.3 % High 0.0-10.0 Eo% 3.4 % N 0.0-6.6 Bas% 0.4 % N 0.0-1.1 Neut# 2.53 K/uL N 1.8-7.0 Lymph # 2.04 K/uL N 1.0-4.0 [place] # 0.55 K/uL N 0.0-0.8 Eos # 0.18 K/uL N 0.0-0.5 Baso # 0.02 K/uL N 0.0-0.1 Comprehensive Metabolic 12/02/2018 [facility] Glucose 106 mg/dL N 74-106 Panel [address] [place] [address] [phone] BUN 25 mg/dL High 7-18 Creatinine 1.1 mg/dL N 0.6-1.3 Glom Filtration Rate, Estimate >60 mL/min >60 If >60 mL/min >60 9 BUN/Creat 22.7 ratio Sodium 142 mmol/L N 136-145 Potassium 4.3 mmol/L N 3.5-5.1 Chloride 110 mmol/L High 98-107 Carbon Dioxide 28 mmol/L N 21-32 Anion Gap 4 mEq/L Low 8-16 Calcium 8.7 mg/dL N 8.5-10.1 Total Protein 7.5 g/dL N 6.4-8.2 Albumin 3.4 g/dL N 3.4-5.0 Globulin 4.1 g/dL N 1.9-4.3 Alb/Glob 0.8 ratio Bilirubin,Total 0.3 mg/dL N 0.2-1.0 Sgot/Ast 16 U/L N 15-37 SGPT/Alt 20 U/L N 12-78 Alkaline Phosphatase 56 U/L N 45-117 Glycohemoglobin A1c 12/02/2018 [facility] Glycohemoglobin 5.8 % N 4.2-6.[address] (A1c) [place], [place] [id number] [phone] eAG 120 mg/dL LDL Cholesterol Profile 12/02/2018 [facility] Cholesterol 154 mg/dL <[address] [place], [place] [id number] [phone] Triglycerides 67 mg/dL <150 12 HDL Cholesterol 49 mg/dL >40 13 LDL-Cholesterol 92 mg/dL < 100 14 Laboratory test 12/02/2018 [facility] Vitamin 43.7 30.0-100.0 [address] D,25-Hydroxy ng/mL [place], [place] [id number] [phone] CBS W/Automated 08/26/2018 [facility] White Blood 5.9 K/uL N 3.4-10.5 [address] [place] [address] [phone] Red Blood Count 4.36 M/uL N 4.20-5.80 Hemoglobin 13.7 gm/dL N 12.8-17.0 Hematocrit 40.7 % N 38.0-48.0 Mean Cell Volume 93.3 fl N 80.0-96.0 Mean Corpuscular HGB 31.4 pg N 27.0-33.0 Mean Corpuscular HGB Conc 33.7 g/dL N 31.7-36.0 Platelet Count 252 K/uL N 155-360 Red Cell Distri Width SD 44.9 fl N 36-51 Red Cell Distri Width %CV 13.5 % N 11.6-15.8 Mean Platelet Volume 9.9 fL N 6.6-10.6 Neut% 49.9 % N 33.0-73.0 Lymph % 35.6 % N 20.0-42.0 [place] % 10.7 % High 0.0-10.0 Eo% 3.6 % N 0.0-6.6 Bas% 0.2 % N 0.0-1.1 Neut# 2.93 K/uL N 1.8-7.0 Lymph # 2.09 K/uL N 1.0-4.0 [place] # 0.63 K/uL N 0.0-0.8 Eos # 0.21 K/uL N 0.0-0.5 Baso # 0.01 K/uL N 0.0-0.1 Comprehensive Metabolic 08/26/2018 [facility] Glucose 104 mg/dL N 74-106 Panel [address] [place], [place] [id number] [phone] BUN 21 mg/dL High 7-18 Creatinine 1.2 mg/dL N 0.6-1.3 Glom Filtration Rate, Estimate >60 mL/min >60 If >60 mL/min >60 17 BUN/Creat 17.5 ratio Sodium 142 mmol/L N 136-145 Potassium 4.4 mmol/L N 3.5-5.1 Chloride 107 mmol/L N 98-107 Carbon Dioxide 29 mmol/L N 21-32 Anion Gap 6 mEq/L Low 8-16 Calcium 9.3 mg/dL N 8.5-10.1 Total Protein 7.5 g/dL N 6.4-8.2 Albumin 3.8 g/dL N 3.4-5.0 Globulin 3.7 g/dL N 1.9-4.3 Alb/Glob 1.0 ratio Bilirubin,Total 0.6 mg/dL N 0.2-1.0 Sgot/Ast 18 U/L N 15-37 SGPT/Alt 20 U/L N 12-78 Alkaline Phosphatase 55 U/L N 45-117 LDL Cholesterol Profile 08/26/2018 [facility] Cholesterol 147 mg/dL <200 18 [address] [place], [place] [id number] [phone] Triglycerides 131 mg/dL <150 19 HDL Cholesterol 48 mg/dL >40 20 LDL-Cholesterol 73 mg/dL < 100 21 Laboratory test 08/26/2018 [facility] Slide Review (SEE NOTE) 22 finding [address] [place] [address] [phone] Poc Urinalysis 08/09/2018 Laboratory Poc Glucose, Negative Negative [phone] Urine Poc Bilirubin, Urine Negative Negative Poc Ketone, Urine Negative Negative Poc Specific Martin, Urine <=1.005 Low 1.010-1.030 Poc Blood, Urine Negative Negative Poc pH, Urine 5.0 N 5-9 Poc Protein, Urine Negative Negative Poc Urobilinogen, Urine 0.2 Negative Poc Nitrite, Urine Negative Negative Poc Leukocytes, Urine Negative Negative Poc Color, Urine Yellow Poc Clarity, Urine Clear 23 Fecal Fat, Qualitative 07/08/2018 [facility] Fats, Neutral Normal . 24, 25 [address] [place] [address] [phone] Fats, Total Normal . 26 Laboratory test 07/07/2018 [facility] Lipase 148 U/L N 56-289 finding [address] [place], [place] [address] [phone] Celiac Disease 07/07/2018 [facility] Immunoglobulin A 205 mg/dL 61-437 27 Comp AB Profile [address] [place] [address] [phone] Antigliadin Abs, IgG 2 units 0-19 28 Antigliadin Abs, IgA 5 units 0-19 29 Endomysial IgA Antibody Negative Negative t-Transglutaminase IgA <2 U/mL 0-3 30 t-Transglutaminase IgG <2 U/mL 0-5 31 Laboratory 07/07/2018 [facility] Sedimentation 28 mm/hr High 0-20 32 test finding [address] [place] [address] [phone] CBS 06/17/2018 [facility] White Blood Count 6.1 K/uL N 3.4-10.5 W/Automated [address] [place] [address] [phone] Red Blood Count 4.60 M/uL N 4.20-5.80 Hemoglobin 14.5 gm/dL N 12.8-17.0 Hematocrit 42.4 % N 38.0-48.0 Mean Cell Volume 92.2 fl N 80.0-96.0 Mean Corpuscular HGB 31.5 pg N 27.0-33.0 Mean Corpuscular HGB Conc 34.2 g/dL N 31.7-36.0 Platelet Count 207 K/uL N 155-360 Red Cell Distri Width SD 46.7 fl N 36-51 Red Cell Distri Width %CV 14.0 % N 11.6-15.8 Mean Platelet Volume 9.9 fL N 6.6-10.6 Neut% 49.3 % N 33.0-73.0 Lymph % 36.4 % N 20.0-42.0 [place] % 11.3 % High 0.0-10.0 Eo% 2.8 % N 0.0-6.6 Bas% 0.2 % N 0.0-1.1 Neut# 3.03 K/uL N 1.8-7.0 Lymph # 2.23 K/uL N 1.0-4.0 [place] # 0.69 K/uL N 0.0-0.8 Eos # 0.17 K/uL N 0.0-0.5 Baso # 0.01 K/uL N 0.0-0.1 Comprehensive Metabolic 06/17/2018 [facility] Glucose 107 mg/dL High 74-[address] [place] [address] [phone] BUN 25 mg/dL High 7-18 Creatinine 1.1 mg/dL N 0.6-1.3 Glom Filtration Rate, Estimate >60 mL/min >60 If >60 mL/min >60 33 BUN/Creat 22.7 ratio Sodium 144 mmol/L N 136-145 Potassium 4.4 mmol/L N 3.5-5.1 Chloride 111 mmol/L High 98-107 Carbon Dioxide 25 mmol/L N 21-32 Anion Gap 8 mEq/L N 8-16 Calcium 8.9 mg/dL N 8.5-10.1 Total Protein 7.6 g/dL N 6.4-8.2 Albumin 3.9 g/dL N 3.4-5.0 Globulin 3.7 g/dL N 1.9-4.3 Alb/Glob 1.1 ratio Bilirubin,Total 0.4 mg/dL N 0.2-1.0 Sgot/Ast 20 U/L N 15-37 SGPT/Alt 19 U/L N 12-78 Alkaline Phosphatase 62 U/L N 45-117 Protime 06/17/2018 [facility] Protime 13.7 seconds N 12.0-14.[address] [place] [address] [phone] Inr 1.1 N 0.9-1.1 34 Laboratory test 06/17/2018 [facility] Act Partial 26.8 seconds N 23.4-35.0 [address] [place] [address] [phone] CBS W/Automated 03/11/2018 [facility] White Blood 5.9 K/uL N 3.4-10.5 [address] [place] [address] [phone] Red Blood Count 4.71 M/uL N 4.20-5.80 Hemoglobin 14.8 gm/dL N 12.8-17.0 Hematocrit 42.7 % N 38.0-48.0 Mean Cell Volume 90.7 fl N 80.0-96.0 Mean Corpuscular HGB 31.4 pg N 27.0-33.0 Mean Corpuscular HGB Conc 34.7 g/dL N 31.7-36.0 Platelet Count 186 K/uL N 155-360 Red Cell Distri Width SD 45.2 fl N 36-51 Red Cell Distri Width %CV 14.1 % N 11.6-15.8 Mean Platelet Volume 10.4 fL N 6.6-10.6 Neut% 45.5 % N 33.0-73.0 Lymph % 40.4 % N 20.0-42.0 [place] % 10.5 % High 0.0-10.0 Eo% 3.4 % N 0.0-6.6 Bas% 0.2 % N 0.0-1.1 Neut# 2.70 K/uL N 1.8-7.0 Lymph # 2.39 K/uL N 1.0-4.0 [place] # 0.62 K/uL N 0.0-0.8 Eos # 0.20 K/uL N 0.0-0.5 Baso # 0.01 K/uL N 0.0-0.1 LDL Cholesterol Profile 03/11/2018 [facility] Cholesterol 148 mg/dL <[address] [place] [address] [phone] Triglycerides 77 mg/dL <150 38 HDL Cholesterol 55 mg/dL >40 39 LDL-Cholesterol 78 mg/dL < 100 40 Comprehensive Metabolic 03/11/2018 [facility] Glucose 104 mg/dL N 74-[address] [place] [address] [phone] BUN 20 mg/dL High 7-18 Creatinine 1.0 mg/dL N 0.6-1.3 Glom Filtration Rate, Estimate >60 mL/min >60 If >60 mL/min >60 41 BUN/Creat 20.0 ratio Sodium 140 mmol/L N 136-145 Potassium 4.1 mmol/L N 3.5-5.1 Chloride 108 mmol/L High 98-107 Carbon Dioxide 24 mmol/L N 21-32 Anion Gap 8 mEq/L N 8-16 Calcium 8.7 mg/dL N 8.5-10.1 Total Protein 7.5 g/dL N 6.4-8.2 Albumin 3.7 g/dL N 3.4-5.0 Globulin 3.8 g/dL N 1.9-4.3 Alb/Glob 1.0 ratio Bilirubin,Total 0.5 mg/dL N 0.2-1.0 Sgot/Ast 19 U/L N 15-37 SGPT/Alt 18 U/L N 12-78 Alkaline Phosphatase 51 U/L N 45-117 CBS W/Automated 09/02/2017 [facility] White Blood 5.4 K/uL N 3.4-10.5 [address] Count [place], [place] [id number] [phone] Red Blood Count 4.63 M/uL N 4.20-5.80 Hemoglobin 14.5 gm/dL N 12.8-17.0 Hematocrit 42.5 % N 38.0-48.0 Mean Cell Volume 91.8 fl N 80.0-96.0 Mean Corpuscular HGB 31.3 pg N 27.0-33.0 Mean Corpuscular HGB Conc 34.1 g/dL N 31.7-36.0 Platelet Count 202 K/uL N 150-400 Red Cell Distri Width SD 45.2 fl N 36-51 Red Cell Distri Width %CV 13.8 % N 11.6-15.8 Mean Platelet Volume 9.6 fL N 6.6-10.6 Neut% 59.8 % N 33.0-73.0 Lymph % 25.9 % N 20.0-42.0 [place] % 11.5 % High 0.0-10.0 Eo% 2.6 % N 0.0-6.6 Bas% 0.2 % N 0.0-1.1 Neut# 3.24 K/uL N 1.8-7.0 Lymph # 1.40 K/uL N 1.0-4.0 [place] # 0.62 K/uL N 0.0-0.8 Eos # 0.14 K/uL N 0.0-0.5 Baso # 0.01 K/uL N 0.0-0.1 LDL Cholesterol Profile 09/02/2017 [facility] Cholesterol 136 mg/dL <200 43 [address] [place], [place] [id number] [phone] Triglycerides 174 mg/dL High <150 44 HDL Cholesterol 50 mg/dL >40 45 LDL-Cholesterol 51 mg/dL < 100 46 Laboratory test 09/02/2017 [facility] Prostate 1.82 ng/mL < 4.0 47 finding [address] [facility] [place] [address] Antigen [phone] Slide Review (SEE NOTE) 48 Comprehensive Metabolic 09/02/2017 [facility] Glucose 114 mg/dL High 74-106 Panel [address] [place] [address] [phone] BUN 22 mg/dL High 7-18 Creatinine 1.2 mg/dL N 0.6-1.3 Glom Filtration Rate, Estimate >60 mL/min >60 If >60 mL/min >60 49 BUN/Creat 18.3 ratio Sodium 140 mmol/L N 136-145 Potassium 4.4 mmol/L N 3.5-5.1 Chloride 109 mmol/L High 98-107 Carbon Dioxide 25 mmol/L N 21-32 Anion Gap 6 mEq/L Low 8-16 Calcium 8.5 mg/dL N 8.5-10.1 Total Protein 7.2 g/dL N 6.4-8.2 Albumin 3.4 g/dL N 3.4-5.0 Globulin 3.8 g/dL N 1.9-4.3 Alb/Glob 0.9 ratio Bilirubin,Total 0.4 mg/dL N 0.2-1.0 Sgot/Ast 15 U/L N 15-37 SGPT/Alt 18 U/L N 12-78 Alkaline Phosphatase 58 U/L N 45-117 Ua Routine 08/25/2017 [facility] Urine Color YELLOW Yellow [address] [place] [address] [phone] Urine Clarity CLEAR Clear Urine Glucose - Dipstick NEGATIVE mg/dL Negative Urine Bilirubin - Dipstick NEGATIVE Negative Urine Ketone NEGATIVE mg/dL Negative Urine Specific [place] 1.020 N 1.010-1.030 Urine Blood SMALL Abnormal Negative Urine PH 5.5 Low 6.5-7.5 Urine Protein - Dipstick NEGATIVE mg/dL Negative Urine Urobilinogen - Dipstick 0.2 E.U./dL N 0.2-1.0 Urine Nitrite - Dipstick NEGATIVE Negative Urine Leuk Esterase NEGATIVE Negative Urine RBC 5-10 rbc/hpf High 0-2 Urine WBC 0-2 wbc/hpf 0-7 Urine Epithelial Cells VERY FEW /lpf None Seen Urine Bacteria FEW None Seen Source: URINE, CLEAN CAT <SEE NOTE> 50 Throat Culture 04/08/2017 [facility] Throat Culture NORMAL 51, [address] [place] [address] <SEE [phone] NOTE> Laboratory test 09/25/2016 [facility] Prostate Specific 1.69 N < 53, [address] Antigen ng/mL 4.0 [place], [place] [id number] [phone] Glycohemoglobin A1c 09/25/2016 [facility] Glycohemoglobin 5.6 % N 4.[address] (A1c) -6. [place] [address] 3 [phone] eAG 114 mg/dL N LDL Cholesterol Profile 09/25/2016 [facility] Cholesterol 161 mg/dL N <[address] [place] [address] [phone] Triglycerides 84 mg/dL N <150 57 HDL Cholesterol 56 mg/dL N >40 58 LDL-Cholesterol 88 mg/dL N < 100 59 CBS W/Automated Diff 09/25/2016 [facility] White Blood 4.8 K/uL N 3.4-10.[address] [place] [address] [phone] Red Blood Count 4.76 M/uL N 4.20-5.80 Hemoglobin 14.5 gm/dL N 12.8-17.0 Hematocrit 43.1 % N 38.0-48.0 Mean Cell Volume 90.5 fl N 80.0-96.0 Mean Corpuscular HGB 30.5 pg N 27.0-33.0 Mean Corpuscular HGB Conc 33.6 g/dL N 31.7-36.0 Platelet Count 191 K/uL N 150-400 Red Cell Distri Width SD 43.9 fl N 36-51 Red Cell Distri Width %CV 13.8 % N 11.6-15.8 Mean Platelet Volume 10.3 fL N 6.6-10.6 Neut% 49.1 % N 33.0-73.0 Lymph % 35.9 % N 17.0-56.0 [place] % 10.6 % High 0.0-10.0 Eo% 4.0 % N 0.0-5.0 Bas% 0.4 % N 0.1-1.0 Neut# 2.35 K/uL N 1.8-7.0 Lymph # 1.72 K/uL Low 1.8-7.0 [place] # 0.51 K/uL N 0.0-0.8 Eos # 0.19 K/uL N 0.0-0.5 Baso # 0.02 K/uL Low 0.1-0.2 Comprehensive Metabolic 09/25/2016 [facility] Glucose 97 mg/dL N 74-106 Panel [address] [place], [place] [id number] [phone] BUN 23 mg/dL High 7-18 Creatinine 1.1 mg/dL N 0.6-1.3 Glom Filtration Rate, Estimate >60 mL/min N >60 If >60 mL/min N >60 60 BUN/Creat 20.9 ratio N Sodium 143 mmol/L N 136-145 Potassium 4.2 mmol/L N 3.5-5.1 Chloride 111 mmol/L High 98-107 Carbon Dioxide 24 mmol/L N 21-32 Anion Gap 8 mEq/L N 8-16 Calcium 9.0 mg/dL N 8.5-10.1 Total Protein 7.5 g/dL N 6.4-8.2 Albumin 3.7 g/dL N 3.4-5.0 Globulin 3.8 g/dL N 1.9-4.3 Alb/Glob 1.0 ratio N Bilirubin,Total 0.5 mg/dL N 0.2-1.0 Sgot/Ast 17 U/L N 15-37 SGPT/Alt 17 U/L N 12-78 Alkaline Phosphatase 56 U/L N 45-117 CBC W/Automated Diff 06/22/2016 [facility] White Blood 5.5 K/uL 3.4-10.[address] [place] [address] [phone] Red Blood Count 4.32 M/uL 4.20-5.80 Hemoglobin [...] % 33.0-73.0 Lymph % 33.3 % 17.0-56.0 [place] % 9.9 % 0.0-10.0 Eo% 4.2 % 0.0-5.0 Bas% 0.2 % 0.1-1.0 Neut# 2.86 K/uL 1.8-7.0 Lymph # 1.82 K/uL 1.8-7.0 [place] # 0.54 K/uL 0.0-0.8 Eos # 0.23 K/uL 0.0-0.5 Baso # 0.01 K/uL Low 0.1-0.2 Laboratory test finding 06/22/2016 [facility] CK 67 U/L 39-308 [address] [place] [address] [phone] Troponin-I < 0.015 ng/mL 61 Comprehensive Metabolic 06/22/2016 [facility] Glucose 120 mg/dL High 74-106 Panel [address] [place] [address] [phone] BUN 20 mg/dL High 7-18 Creatinine 1.1 mg/dL 0.6-1.3 Glom Filtration Rate, Estimate >60 mL/min >60 If >60 mL/min >60 62 BUN/Creat 18.1 ratio Sodium 143 mmol/L 136-145 [...] U/L 12-78 Alkaline Phosphatase 59 U/L 45-117 1 R06.02 2 Note: Persistent reduction for 3 months or more in an eGFR <60 mL/min/1.73 m2 defines CKD. Patients with eGFR values >/=60 mL/min/1.73 m2 may also have CKD if evidence of persistent proteinuria is present. The original MDRD equation for estimated GFR is not valid for patients less than 18 years of age. Additional information may be found at www.kdoqi.org. 3 Elevated levels of HbA1c suggest the need for more aggressive treatment of glycemia. The [place] Diabetes Association recommends that a primary goal of therapy should be a HbA1c of <7% and that physicians should re-evaluate the treatment regimen in patients with HbA1c values consistently >8%. 4 Reference Guidelines*: Desirable: ........... < 200 mg/dL Borderline High: ..... 200-239 mg/dL High: ................ >=240 mg/dL * The National Cholesterol Education Program (NCEP) 5 Reference Guidelines*: Normal: ............. < 150 mg/dL Borderline High: .... 150-199 mg/dL High: ............... 200-499 mg/dL Very High: .......... > 500 mg/dL * Source: National Cholesterol Education Program (NCEP) 6 Reference Guidelines*: Low HDL: ..... < 40 mg/dL Normal: ..... 40-60 mg/dL Desirable: ... > 60 mg/dL *The National Cholesterol Education Program(NCEP) 7 Reference Guidelines*: Optimal:........... <100 mg/dL Near Optimal....... 100-129 mg/dL Borderline High.... 130-159 mg/dL High............... 160-189 mg/dL Very High.......... >=190 mg/dL * Source: National Cholesterol Education Program (NCEP) 8 E78.5 9 Note: Persistent reduction for 3 months or more in an eGFR <60 mL/min/1.73 m2 defines CKD. Patients with eGFR values >/=60 mL/min/1.73 m2 may also have CKD if evidence of persistent proteinuria is present. The original MDRD equation for estimated GFR is not valid for patients less than 18 years of age. Additional information may be found at www.kdoqi.org. 10 Elevated levels of HbA1c suggest the need for more aggressive treatment of glycemia. The [place] Diabetes Association recommends that a primary goal of therapy should be a HbA1c of <7% and that physicians should re-evaluate the treatment regimen in patients with HbA1c values consistently >8%. 11 Reference Guidelines*: Desirable: ........... < 200 mg/dL Borderline High: ..... 200-239 mg/dL High: ................ >=240 mg/dL * The National Cholesterol Education Program (NCEP) 12 Reference Guidelines*: Normal: ............. < 150 mg/dL Borderline High: .... 150-199 mg/dL High: ............... 200-499 mg/dL Very High: .......... > 500 mg/dL * Source: National Cholesterol Education Program (NCEP) 13 Reference Guidelines*: Low HDL: ..... < 40 mg/dL Normal: ..... 40-60 mg/dL Desirable: ... > 60 mg/dL *The National Cholesterol Education Program(NCEP) 14 Reference Guidelines*: Optimal:........... <100 mg/dL Near Optimal....... 100-129 mg/dL Borderline High.... 130-159 mg/dL High............... 160-189 mg/dL Very High.......... >=190 mg/dL * Source: National Cholesterol Education Program (NCEP) 15 Vitamin D deficiency has been defined by the [place] [employer] and an Endocrine Society practice guideline as a level of serum 25-OH vitamin D less than 20 ng/mL (1,2). The Endocrine Society went on to further define vitamin D insufficiency as a level between 21 and 29 ng/mL (2). 1. IOM ([place] [employer]). 2010. Dietary reference intakes for calcium and D. [place]: The National Academies Press. 2. Nelson MF, Maria Luisa VASQUEZ, Calvin JOEL, et al. Evaluation, treatment, and prevention of vitamin D deficiency: an Endocrine Society clinical practice guideline. JCEM. 2010; 96(7):1911-30. Performed at: RN - [facility] [address] [id number] Business And Financial Counsel: Moraima Macdonald MD, Phone: [phone] 16 I10, E78.5, I10, N40.1 17 Note: Persistent reduction for 3 months or more in an eGFR <60 mL/min/1.73 m2 defines CKD. Patients with eGFR values >/=60 mL/min/1.73 m2 may also have CKD if evidence of persistent proteinuria is present. The original MDRD equation for estimated GFR is not valid for patients less than 18 years of age. Additional information may be found at www.kdoqi.org. 18 Reference Guidelines*: Desirable: ........... < 200 mg/dL Borderline High: ..... 200-239 mg/dL High: ................ >=240 mg/dL * The National Cholesterol Education Program (NCEP) 19 Reference Guidelines*: Normal: ............. < 150 mg/dL Borderline High: .... 150-199 mg/dL High: ............... 200-499 mg/dL Very High: .......... > 500 mg/dL * Source: National Cholesterol Education Program (NCEP) 20 Reference Guidelines*: Low HDL: ..... < 40 mg/dL Normal: ..... 40-60 mg/dL Desirable: ... > 60 mg/dL *The National Cholesterol Education Program(NCEP) 21 Reference Guidelines*: Optimal:........... <100 mg/dL Near Optimal....... 100-129 mg/dL Borderline High.... 130-159 mg/dL High............... 160-189 mg/dL Very High.......... >=190 mg/dL * Source: National Cholesterol Education Program (NCEP) 22 Instrument flagged sample for slide review. Less than 10% Bands seen, no other immature WBC's seen. RBC morphology essentially normal. Platelet estimate=NORMAL 23 Pocket Operator: [id number] 24 K92.1 25 Normal (<60 Droplets/HPF) 26 Normal (<100 Droplets/HPF) Performed at: [facility] [address] [id number] Business And Financial Counsel: Moraima Macdonald MD, Phone: [phone] Performed at: [facility] [address] [id number] Business And Financial Counsel: Moraima Macdonald MD, Phone: [phone] 28 Negative 0 - 19 Weak Positive 20 - 30 Moderate to Strong Positive >30 29 Negative 0 - 19 Weak Positive 20 - 30 Moderate to Strong Positive >30 30 Negative 0 - 3 Weak Positive 4 - 10 Positive >10 Tissue Transglutaminase (tTG) has been identified as the endomysial antigen. Studies have demonstr- ated that endomysial IgA antibodies have over 99% specificity for gluten sensitive enteropathy. 31 Negative 0 - 5 Weak Positive 6 - 9 Positive >9 32 Method: Sediplast Modified Westergren 33 Note: Persistent reduction for 3 months or more in an eGFR <60 mL/min/1.73 m2 defines CKD. Patients with eGFR values >/=60 mL/min/1.73 m2 may also have CKD if evidence of persistent proteinuria is present. The original MDRD equation for estimated GFR is not valid for patients less than 18 years of age. Additional information may be found at www.kdoqi.org. 34 THERAPEUTIC INR RANGE: 2.0 - 3.0 DVT, Pulmonary embolus, prophylaxis against venous thrombosis or systemic embolization in high risk patients. 2.5 - 3.5 Mechanical heart valves 35 Is patient on heparin protocol? N Is patient on anticoagulants? None 36 E78.5 N40.1 37 Reference Guidelines*: Desirable: ........... < 200 mg/dL Borderline High: ..... 200-239 mg/dL High: ................ >=240 mg/dL * The National Cholesterol Education Program (NCEP) 38 Reference Guidelines*: Normal: ............. < 150 mg/dL Borderline High: .... 150-199 mg/dL High: ............... 200-499 mg/dL Very High: .......... > 500 mg/dL * Source: National Cholesterol Education Program (NCEP) 39 Reference Guidelines*: Low HDL: ..... < 40 mg/dL Normal: ..... 40-60 mg/dL Desirable: ... > 60 mg/dL *The National Cholesterol Education Program(NCEP) 40 Reference Guidelines*: Optimal:........... <100 mg/dL Near Optimal....... 100-129 mg/dL Borderline High.... 130-159 mg/dL High............... 160-189 mg/dL Very High.......... >=190 mg/dL * Source: National Cholesterol Education Program (NCEP) 41 Note: Persistent reduction for 3 months or more in an eGFR <60 mL/min/1.73 m2 defines CKD. Patients with eGFR values >/=60 mL/min/1.73 m2 may also have CKD if evidence of persistent proteinuria is present. The original MDRD equation for estimated GFR is not valid for patients less than 18 years of age. Additional information may be found at www.kdoqi.org. 42 I10,N40.0,J44.9.I42.9 43 Reference Guidelines*: Desirable: ........... < 200 mg/dL Borderline High: ..... 200-239 mg/dL High: ................ >=240 mg/dL * The National Cholesterol Education Program (NCEP) 44 Reference Guidelines*: Normal: ............. < 150 mg/dL Borderline High: .... 150-199 mg/dL High: ............... 200-499 mg/dL Very High: .......... > 500 mg/dL * Source: National Cholesterol Education Program (NCEP) 45 Reference Guidelines*: Low HDL: ..... < 40 mg/dL Normal: ..... 40-60 mg/dL Desirable: ... > 60 mg/dL *The National Cholesterol Education Program(NCEP) 46 Reference Guidelines*: Optimal:........... <100 mg/dL Near Optimal....... 100-129 mg/dL Borderline High.... 130-159 mg/dL High............... 160-189 mg/dL Very High.......... >=190 mg/dL * Source: National Cholesterol Education Program (NCEP) 47 THIS ASSAY IS NOT INTENDED A CANCER SCREENING TEST The concentration of PSA in a given specimen, determined with assays from different manufacturers, can vary due to differences in assay methods and reagent specificity. Values obtained from different assay methods cannot be used interchangeably. Method: Liquid [employer] [place] Chemiluminescent immunoassay. 48 Instrument flagged sample for slide review. Less than 10% Bands seen, no other immature WBC's seen. RBC morphology essentially normal. Platelet estimate=NormaL 49 Note: Persistent reduction for 3 months or more in an eGFR <60 mL/min/1.73 m2 defines CKD. Patients with eGFR values >/=60 mL/min/1.73 m2 may also have CKD if evidence of persistent proteinuria is present. The original MDRD equation for estimated GFR is not valid for patients less than 18 years of age. Additional information may be found at www.kdoqi.org. 50 URINE, CLEAN CATCH 51 J30.9 J02.9 52 NORMAL THROAT AUDI 53 I42.9 I10 N40.0 I44.7 54 THIS ASSAY IS NOT INTENDED A CANCER SCREENING TEST The concentration of PSA in a given specimen, determined with assays from different manufacturers, can vary due to differences in assay methods and reagent specificity. Values obtained from different assay methods cannot be used interchangeably. Method: [place] Chemiluminescent immunoassay. 55 Elevated levels of HbA1c suggest the need for more aggressive treatment of glycemia. The [place] Diabetes Association recommends that a primary goal of therapy should be a HbA1c of <7% and that physicians should re-evaluate the treatment regimen in patients with HbA1c values consistently >8%. 56 Reference Guidelines*: Desirable: ........... < 200 mg/dL Borderline High: ..... 200-239 mg/dL High: ................ >=240 mg/dL * The National Cholesterol Education Program (NCEP) 57 Reference Guidelines*: Normal: ............. < 150 mg/dL Borderline High: .... 150-199 mg/dL High: ............... 200-499 mg/dL Very High: .......... > 500 mg/dL * Source: National Cholesterol Education Program (NCEP) 58 Reference Guidelines*: Low HDL: ..... < 40 mg/dL Normal: ..... 40-60 mg/dL Desirable: ... > 60 mg/dL *The National Cholesterol Education Program(NCEP) 59 Reference Guidelines*: Optimal:........... <100 mg/dL Near Optimal....... 100-129 mg/dL Borderline High.... 130-159 mg/dL High............... 160-189 mg/dL Very High.......... >=190 mg/dL * Source: National Cholesterol Education Program (NCEP) 60 Note: Persistent reduction for 3 months or more in an eGFR <60 mL/min/1.73 m2 defines CKD. Patients with eGFR values >/=60 mL/min/1.73 m2 may also have CKD if evidence of persistent proteinuria is present. The original MDRD equation for estimated GFR is not valid for patients less than 18 years of age. Additional information may be found at www.kdoqi.org. 61 0.0 - 0.045 ng/mL: Normal 0.046 - 0.5 ng/mL: Suggestive 0.6 - 1.5 ng/mL: Consistent 62 Note: Persistent reduction for 3 months or more in an eGFR <60 mL/min/1.73 m2 defines CKD. Patients with eGFR values >/=60 mL/min/1.73 m2 may also have CKD if evidence of persistent proteinuria is present. The original MDRD equation for estimated GFR is not valid for patients less than 18 years of age. Additional information may be found at www.[email or web address]. Procedures Date Code Description Status 03/28/2019 53928 Measurement Post Voiding Residual Urine By Completed Ultrasound,Non-Imaging 08/05/2018 58280 EKG Interpretation And Report Only Completed 07/13/2018 [id number] Colonoscopy Completed 07/13/2018 03321 Sigmoidoscope With Biopsy Completed 07/13/2018 95689 EGD With Biopsy Completed 03/22/2018 19400 Measurement Post Voiding Residual Urine By Completed Ultrasound,Non-Imaging 03/22/2018 58730 complex uroflowmetry electronic Completed 09/10/2017 65938 complex uroflowmetry electronic Completed 09/10/2017 87642 Cystoscopy Completed 09/10/2017 62411 Measurement Post Voiding Residual Urine By Completed Ultrasound,Non-Imaging 07/05/2017 93349 EGD With Biopsy Completed 07/05/2017 67542 Hemorrhoidectomy, single ligature Completed 07/05/2017 29038 Colonoscopy Completed 06/15/2017 27365 Anoscopy Completed 10/05/2016 46130 Spirometry Completed 10/05/2016 14265 Bronchospasm Provocation Evaluation Multi Spirometric Completed Determinati 10/05/2016 84076 Spirometry Completed 09/25/2016 66579 Bronchospasm Provocation Evaluation Multi Spirometric Completed Determinati 07/30/2016 03111 EKG-Tracing And Report Completed 06/09/2016 83540 Echocardiogram Complete Completed 06/09/2016 28642 Holter Monitor 24HR Inter/Report Completed 06/01/2016 20089 EKG-Tracing And Report Completed 10/29/2014 94284 Echocardiogram Complete Completed 08/23/2014 [id number] Colonoscopy Completed 02/19/2014 46021 Holter Monitor 24HR Inter/Report Completed 11/24/2013 67897 Holter Monitor 24HR Inter/Report Completed 10/30/2013 44381 EKG-Tracing And Report Completed 03/16/2013 24280 Holter Monitor 24HR Inter/Report Completed 02/03/2013 32914 EKG-Tracing And Report Completed 01/30/2013 41761 Echocardiogram Complete Completed 01/30/2013 12193 Holter Monitor 24HR Inter/Report Completed 11/16/2012 75200 ECHO Transthor[employer] Performance Continuous Completed Electrocardio Mon Encounters Type Date Location Provider Dx Diagnosis Office Visit 03/28/2019 Urology [facility], Z12.5 Encounter for 2:00p PA screening for malignant neoplasm of prostate N40.1 Benign prostatic hyperplasia with lower urinary tract symp Office Visit 03/06/2019 9:00a [facility], Z96.642 Presence of left Office [place], artificial hip RN ACUTE-C, CNM joint R73.9 Hyperglycemia, unspecified E78.5 Hyperlipidemia, unspecified N40.1 Benign prostatic hyperplasia with lower urinary tract symp K29.50 Unspecified chronic gastritis without bleeding 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), right foot Z71.41 Alcohol abuse counseling and surveillance of alcoholic Office Visit 01/19/2019 1:00p Primary Care Cintia Dominguez, M20.5x1 Other deformities Office MD of toe(s) (acquired), right foot Z96.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 Office Visit 12/06/2018 10:30a Primary Care Ginna Chappell, R06.02 Shortness of Office MS, RN ACUTE-C, CNM breath R61 Generalized hyperhidrosis J30.9 Allergic rhinitis, unspecified R12 Heartburn R73.9 Hyperglycemia, unspecified Z71.41 Alcohol abuse counseling and surveillance of alcoholic Office Visit 11/18/2018 8:00a Podiatry Office Ancelmo Balderas, M20.5x1 Other deformities DPM of toe(s) (acquired), right foot M20.5x2 Other deformities of toe(s) (acquired), left foot M79.675 Pain in left toe(s) 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, 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, left ankle and foot Office Visit 09/02/2018 10:45a Primary Care Ginna Chappell, Z00.00 Encntr for Office MS, CHANCE-C, CNM general adult medical exam w/o abnormal findings M20.40 Other hammer toe(s) (acquired), unspecified foot H60.8x1 Other otitis externa, right ear E78.5 Hyperlipidemia, unspecified K62.89 Other specified diseases of anus and rectum I10 Essential (primary) hypertension G43.109 Migraine with aura, not intractable, w/o status migrainosus Office Visit 07/28/2018 9:30a Leno Calderon MD K29.80 Duodenitis without bleeding K62.89 Other specified diseases of anus and rectum Office Visit 07/07/2018 1:45p Leno Calderon MD K92.1 Melena Office Visit 06/17/2018 3:30p Primary Care Office Ginna Chappell, MS, K92.1 Melena MIGUELANGEL, BARRY N40.1 Benign prostatic hyperplasia with lower urinary tract symp Office Visit 03/22/2018 8:30a Urology Leah Wilson M.D. R31.0 Gross hematuria N40.1 Benign prostatic hyperplasia with lower urinary tract symp Office Visit 03/21/2018 10:20a Primary Care Cintia Dominguez, I10 Essential ( primary) Office MD hypertension E78.5 Hyperlipidemia, unspecified N40.1 Benign prostatic hyperplasia with lower urinary tract symp K43.9 Ventral hernia without obstruction or gangrene Z23 Encounter for immunization Office Visit 02/01/2018 3:00p Primary Care Nell J20.9 Acute bronchitis, Office Ruperto Purvis unspecified Office Visit 09/15/2017 9:40a Primary Care Cintia Dominguez MD N40.1 Benign prostatic Office hyperplasia with lower urinary tract symp I10 Essential (primary) hypertension E78.5 Hyperlipidemia, unspecified Z23 Encounter for immunization Office Visit 09/10/2017 10:00a UrologLeah Ramos M.D. R31.0 Gross hematuria N40.1 Benign prostatic hyperplasia with lower urinary tract symp Office Visit 09/02/2017 9:30a Urology Steve, R31.0 Gross hematuria Ruperto Lynn Office Visit 08/31/2017 11:00a Surgical Office Fer Flores, K43.9 Ventral hernia MD,MERON without obstruction or gangrene Office Visit 08/25/2017 3:40p Primary Care Cintia Dominguez, K43.9 Ventral hernia Office MD without obstruction or gangrene R31.9 Hematuria, unspecified Office Visit 07/19/2017 Cardiology Dallas Laguerre I44.7 Left bundle- branch 10:20a Office Ruperto Ellis, FACC block, unspecified R94.31 Abnormal electrocardiogram [ECG] [EKG] Office Visit 07/08/2017 2:45p GI Leno Dhillon MD R12 Heartburn K64.1 Second degree hemorrhoids K57.30 Dvrtclos of lg int w/o perforation or abscess w/o bleeding Office Visit 06/15/2017 10:30a GI Leno Dhillon MD R12 Heartburn K62.5 Hemorrhage of anus and rectum Office Visit 04/07/2017 3:40p Primary Care Cintia Dominguez, J30.9 Allergic rhinitis, Office MD unspecified J02.9 Acute pharyngitis, unspecified Office Visit 09/16/2016 11:20a Primary Care Cintia Dominguez, I10 Essential ( primary) Office hypertension N40.0 Benign prostatic hyperplasia without lower urinry tract symp D22.9 Melanocytic nevi, unspecified R19.7 Diarrhea, unspecified R05 Cough Z23 Encounter for immunization Office Visit 07/30/2016 Cardiology Carlotta, Z01.810 Encounter for 11:20a Office Dallas Ellis M.D., preprocedural [facility] cardiovascular examination I44.7 Left bundle-branch block, unspecified I42.9 Cardiomyopathy, unspecified Office Visit 07/22/2016 8:40a Primary Care Cintia Dominguez, I10 Essential ( primary) Office hypertension I44.7 Left bundle-branch block, unspecified M79.671 Pain in right foot R00.2 Palpitations Office Visit 07/15/2016 8:40a Primary Care Cintia Dominguez, I10 Essential ( primary) Office hypertension I44.7 Left bundle-branch block, unspecified J30.9 Allergic rhinitis, unspecified Z96.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 N40.0 Enlarged prostate without lower urinary tract symptoms Office Visit 06/01/2016 10:20a Cardiology Office Dallas Laguerre R00.2 Palpitations Ruperto Ellis, FACC I44.7 Left bundle-branch block, unspecified Office Visit 05/10/2015 10:30a Cardiology Office Dallas Laguerre 785.1 Palpitations Ruperto Ellis, FACC 401.1 Hypertension Benign Office Visit 11/01/2014 10:40a Cardiology Office Harpal Stevens, 785.1 Palpitations , PhD 401.1 Hypertension Benign 786.05 Shortness Of Breath Office Visit 04/26/2014 1:10p Cardiology Office Harpal Stevens, 785.1 Palpitations , PhD 401.1 Hypertension Benign Office Visit 12/06/2013 10:40a Cardiology Office Harpal Stevens, 785.1 Palpitations , PhD 786.05 Shortness Of Breath Office Visit 10/30/2013 11:40a Cardiology Office Harpal Stevens, 785.1 Palpitations , PhD 786.05 Shortness Of Breath 401.1 Hypertension Benign Office Visit 09/14/2013 2:50p Cardiology Office Harpal Stevens, 785.1 Palpitations , PhD 786.05 Shortness Of Breath 401.1 Hypertension Benign Office Visit 03/16/2013 10:00a Cardiology Office Harpal Stevens, 785.1 Palpitations , PhD 786.05 Shortness Of Breath Office Visit 02/03/2013 12:00p Cardiology Office Harpal Stevens 786.51 Pain Precordial MD Levi, PhD 427.89 Cardiac Dysrhythmia Other 785.1 Palpitations Office Visit 01/30/2013 11:41a Cardiology Office Harpal Stevens 427.89 Cardiac MD Levi, PhD Dysrhythmia Other Plan of Treatment Future Appointment(s):03/29/2020 2:00 pm - Wale Mantilla PA at [id number] 9:00 am - Ginna Chappell, , RN ACUTE-C, CNM at Primary Care [id number] - Wale Mantilla, PAZ12.5 Encounter for screening for malignant neoplasm of prostateComments:His exam today is benign. We'll contact his primary care office and get his last 3 years of PSAs process of [id number] Benign prostatic hyperplasia with lower urinary tract symptoComments:If he notices any worsening of his urinary symptoms he may try tamsulosin twice a day. He should contact me if he does. We reviewed potential side effects including orthostasis. As otherwise indicated follow-up 12 months. Prescription refills as is is faxed to pharmacy
[2019-05-04 08:19] VITALS: BP 138/61
--- NOTE | 2019-05-04 08:36 | UC ---
Skin Complaint HPI - HPI Summary HPI Summary: pain right index finger x 5 days , no known injury , pain is 7 out of 10 , worse with touch, better with warm compresses, + redness, swelling of the right index finger at the base of the nail - History of Current Complaint Chief Complaint: UCSkin Time Seen by Provider: 05/04/19 08:23 Stated Complaint: SKIN CONCERN Hx Obtained From: Patient Onset/Duration: Gradual Onset, Lasting Days - 5, Still Present Timing: Constant Onset Severity: Moderate Current Severity: Moderate Pain Intensity: 7 Location: Discrete - right index finger Character: Swelling, Pain, Redness, Raised, Painful Aggravating Factor(s): Touch Alleviating Factor(s): Heat Associated Signs & Symptoms: Positive: Tenderness. Negative: Fever, Chills, Red Streaks - Allergy/Home Medications Allergies/Adverse Reactions: Allergies Allergy/AdvReac Type Severity Reaction Status Date / Time No Known Allergies Allergy Verified 05/04/19 08:19 PMH/Surg Hx/FS Hx/Imm Hx - Additional Past Medical History Additional PMH: BPH Acid Reflux IBS Cardiovascular History: Cardiac Disease - PVC GI/ History: Gastroesophageal Reflux - Surgical History Surgical History: Yes Surgery Procedure, Year, and Place: Multiple Orthopedic Surgeries. 1998 TOTAL L HIP [facility]. 2005 REVISION L HIP [facility]. 2012 R [facility]. BILATERAL MACOPLASTY-2013 - Family History Known Family History: Positive: None, Other - ca, DEMENTIA - Social History Alcohol Use: Daily Substance Use Type: None Smoking Status (MU): Former Smoker Type: Cigarettes When Did the Patient Quit Smoking/Using Tobacco: 1060 - Immunization History Most Recent Influenza Vaccination: AUG 2015 Vaccination Up to Date: Yes Review of Systems All Other Systems Reviewed And Are Negative: Yes Is Patient Immunocompromised?: No Physical Exam Triage Information Reviewed: Yes Appearance: Well-Appearing, No Pain Distress, Well-Nourished Vital Signs: Initial Vital Signs Temp 98.2 F 05/04/19 08:14 Pulse 55 05/04/19 08:14 Resp 16 05/04/19 08:14 BP 138/61 05/04/19 08:14 Pulse Ox 99 05/04/19 08:14 Vital Signs Reviewed: Yes Eye Exam: Normal Eyes: Positive: Conjunctiva Clear ENT: Positive: Normal ENT inspection, Hearing grossly normal, Pharynx normal Neck: Positive: Supple, Nontender, No Lymphadenopathy Respiratory: Positive: Chest non-tender, Lungs clear, Normal breath sounds Cardiovascular: Positive: RRR, No Murmur, Pulses Normal Skin: Positive: Other - paronychia right index finger Procedures - Incision and Drainage Right Finger Dorsal Site: evacuation of the paronychia right index finger / no anesthesia used Anesthesia: Other - none Instrument(s): Needle - # 18 g Packing: Other - none Course/Dx - Diagnoses Provider Diagnosis: Paronychia Discharge - Sign-Out/Discharge Documenting (check all that apply): Patient Departure All imaging exams completed and their final reports reviewed: No Studies - Discharge Plan Condition: Stable Disposition: HOME Prescriptions: Amoxicillin/Clavulanate TAB* [Augmentin TAB 875*] 875 mg PO BID #14 tab Patient Education Materials: Paronychia (ED) Referrals: Cintia Dominguez MD [Primary Care Provider] - If Needed - Billing Disposition and Condition Condition: STABLE Disposition: Home
== END 2019-05-04 08:54 | disposition home or self-care (01) ==
LOC: UCCORT 08:03
DX: L03.011 Cellulitis of right finger (principal); Z87.891 Personal history of nicotine dependence
CPT/HCPCS: 10060; 99212; G0463

== ENCOUNTER 2019-08-21 07:12 | Emergency (ER) | payer MEDICARE, BC ==
[2019-08-21 07:34] VITALS: BP 156/67
--- NOTE | 2019-08-21 07:46 | UC ---
Skin Complaint HPI - HPI Summary HPI Summary: 83-year-old male comes in with a chief complaint of a skin lesion on the inside of his right leg. He noticed it about a week ago. Is 3 or 4 mm slightly raised. Is wondering if it's a tick bite. No bull's-eye rash no fevers no chills. He did have a shingles immunization last week and for one day he had some body aches. He did not see a tick. - History of Current Complaint Chief Complaint: UCSkin Time Seen by Provider: 08/21/19 07:38 Stated Complaint: bug bite Pain Intensity: 0 - Allergy/Home Medications Allergies/Adverse Reactions: Allergies Allergy/AdvReac Type Severity Reaction Status Date / Time No Known Allergies Allergy Verified 08/21/19 07:29 Home Medications: Home Medications Dicyclomine CAP* [Bentyl CAP*] 10 mg PO TID PRN 08/21/19 [History Confirmed ] SUMAtriptan TAB* [Imitrex TAB*] 25 mg PO SEE INSTRUCTIONS PRN 08/21/19 [History Confirmed 08/21/19] PMH/Surg Hx/FS Hx/Imm Hx Previously Healthy: Yes Cardiovascular History: Hypertension GI/ History: Gastroesophageal Reflux - Surgical History Surgical History: Yes Surgery Procedure, Year, and Place: Multiple Orthopedic Surgeries. 1998 TOTAL L HIP [facility]. 2005 REVISION L HIP [facility]. 2012 R [facility]. BILATERAL MACOPLASTY-2014. [facility]. CONTRACTURES BILATERAL HANDS. CARPAL TUNNEL RELEASE. FOOT SURGERY - Family History Known Family History: Positive: None, Other - ca, DEMENTIA - Social History Alcohol Use: Daily Substance Use Type: None Smoking Status (MU): Former Smoker Type: Cigarettes When Did the Patient Quit Smoking/Using Tobacco: 1060 - Immunization History Most Recent Influenza Vaccination: AUG 2015 Vaccination Up to Date: Yes Review of Systems All Other Systems Reviewed And Are Negative: Yes Constitutional: Positive: Other - SEE HPI Skin: Positive: Other - SEE HPI Eyes: Positive: Negative ENT: Positive: Negative Respiratory: Positive: Negative Cardiovascular: Positive: Negative Gastrointestinal: Positive: Negative Motor: Positive: Negative Neurovascular: Positive: Negative Musculoskeletal: Positive: Myalgia Neurological: Positive: Negative Psychological: Positive: Negative Is Patient Immunocompromised?: No Physical Exam Triage Information Reviewed: Yes Appearance: Well-Appearing, No Pain Distress Vital Signs: Initial Vital Signs Temp 97.9 F 08/21/19 07:24 Pulse 59 08/21/19 07:24 Resp 16 08/21/19 07:24 BP 156/67 08/21/19 07:24 Pulse Ox 98 08/21/19 07:24 Vital Signs Reviewed: Yes Eye Exam: Normal Eyes: Positive: Conjunctiva Clear Neck: Positive: Supple Respiratory: Positive: No respiratory distress Musculoskeletal: Positive: Strength Intact, ROM Intact Neurological: Positive: Alert, Muscle Tone Normal Psychological: Positive: Age Appropriate Behavior Skin: Positive: Other - On the right inner thigh there is a 4 mm slightly raised area with normal pigmentation. No foreign body appreciated. No bull's- eye rash no streaking no drainage. Course/Dx - Course Course Of Treatment: I discussed the treatments for tick bite and Lyme disease. Is not obvious that the lesion is from a tick. It does not appear to be infected at this time. Plan is to treat 200 mg doxycycline single dose. Lyme screen was drawn. Patient's to get reevaluated if he sees signs of Lyme disease such as bull's- eye rash or he feels ill. - Diagnoses Provider Diagnosis: Insect bite Discharge ED - Sign-Out/Discharge Documenting (check all that apply): Patient Departure All imaging exams completed and their final reports reviewed: No Studies - Discharge Plan Condition: Stable Disposition: HOME Prescriptions: DOXYcycline CAP(*) [DOXYcycline 100MG CAP(*)] 200 mg PO ONCE #2 cap Patient Education Materials: Tick Bite (ED) Referrals: Ginna Chappell CNM [Primary Care Provider] - Additional Instructions: FOLLOW UP WITH YOUR DOCTOR IF NOT COMPLETELY IMPROVED. GET RECHECKED SOONER IF WORSE; BULLS EYE RASH, SYMPTOMS OF LYME OR ANY QUESTIONS OR CONCERNS. - Billing Disposition and Condition Condition: STABLE Disposition: Home
== END 2019-08-21 07:54 | disposition home or self-care (01) ==
LOC: UCCORT 07:12
DX: S70.361A Insect bite (nonvenomous), right thigh, initial encounter (principal); W57.XXXA Bitten or stung by nonvenomous insect and other nonvenomous arthropods, initial encounter; Y92.9 Unspecified place or not applicable; I10 Essential (primary) hypertension; Z87.891 Personal history of nicotine dependence
CPT/HCPCS: 36415; 86618; 99211; G0463

== ENCOUNTER 2019-12-25 09:24 | Inpatient (IN) | payer MEDICARE, BC ==
[~2019-12-25 09:24] MED LIST: Buffered Lidocaine 1% SYRIN* 1 ML/SYRINGE INTRADERM ONE; Lactated Ringers 1000 ML Bag* 1,000 ML IV SCH
[2019-12-25] MEDS ORDERED: Buffered Lidocaine 1% SYRIN* 1 ML/SYRINGE INTRADERM ONE (09:49)
[2019-12-25] MEDS ORDERED: ceFAZolin 2 GM PREMIX in ORs 2 GM/50 ML BAG ONE (09:49)
[2019-12-25] MEDS ORDERED: Propofol* 500 MG/50 ML BTL ONE (10:21)
[2019-12-25] MEDS ORDERED: fentaNYL* 50 MCG/ML 2 ML VIAL (100 MCG VIAL) IV PRN (12:14)
[2019-12-25] MEDS ORDERED: Naloxone* 0.4 MG/ML 1 ML VIAL IV PRN (12:14)
[2019-12-25] MEDS ORDERED: Esmolol* 10 MG/ML 10 ML (100 mg) ONE (12:17)
[2019-12-25] MEDS ORDERED: Rocuronium* 10 MG/ML VIAL ONE (13:58)
[2019-12-25] MEDS ORDERED: Morphine INJ* 2 MG/ML 1 ML SYRINGE (TWO MG - NEW SYRINGE VERSION) IV PRN (14:01)
[2019-12-25] MEDS ORDERED: Ondansetron ODT TAB* 4 MG PO PRN (14:01)
[2019-12-25] MEDS ORDERED: Temazepam CAP* 15 MG PO PRN (14:01)
[2019-12-25] MEDS ORDERED: oxyCODONE TAB* 5 MG TAB PO PRN (14:01)
[2019-12-25] MEDS ORDERED: diPHENhydraMINE IV* 50 MG/ML 1 ml VIAL (BENADRYL) IV PRN (14:01)
[2019-12-25] MEDS ORDERED: Magnesium Hydroxide LIQ* 30 ML UDC PO PRN (14:01)
[2019-12-25] MEDS ORDERED: diPHENhydraMINE PO* 25 MG PO PRN (14:01)
[2019-12-25] MEDS ORDERED: traMADol TAB* 50 MG PO PRN (14:01)
[2019-12-25] MEDS ORDERED: Ondansetron INJ* 2 MG/ML VIAL IV PRN (14:01)
[2019-12-25] MEDS ORDERED: oxyCODONE/Acetamin 5/325 MG* TAB PO PRN (14:01)
[2019-12-25] MEDS ORDERED: Cyclobenzaprine TAB* 10 MG PO PRN (14:01)
[2019-12-25] MEDS ORDERED: Polyethylene Glycol 3350* 17 GM PACKET PO PRN (14:01)
[2019-12-25] MEDS ORDERED: Dicyclomine CAP* 10 MG PO PRN (14:09)
[2019-12-25] MEDS ORDERED: Midazolam* 1 MG/ML 2 ML VIAL (2 MG) ONE (14:46)
--- NOTE | 2019-12-25 14:55 | PN ---
Date of Service: 12/25/19 Vital Signs: Temp Pulse Resp BP SpO2 FiO2 36.4 C 54 16 153/78 97 12/25/19 09:55 12/25/19 09:55 12/25/19 09:55 12/25/19 09:55 12/25/19 09:55 Physical Exam: Gen: HEENT: Lungs: Cardiac: Abdomen: Extremities: Neuro: Fluid Balance (Past 24 Hours): I= O= Net Intake & Output 12/23/19 12/24/19 12/25/19 12/26/19 06:59 06:59 06:59 06:59 Weight 92.442 kg Plan: Full note dictated. Pt A&O, moving all 4s, excellent mechanics. Able to hold up his head off the bed and generate spontaneous cough. Extubated to nasal cannula. Phonating and grossly neurologically intact.
[2019-12-25] MEDS: Lactated Ringers 1000 ML Bag* 1,000 ML IV SCH ×2 (15:25→18:50)
[2019-12-25 15:32] LABS: Hematocrit 37 % (42-52); Hemoglobin 12.4 g/dL (14.0-18.0); Mean Corpuscular HGB Conc 34 g/dL (31-36); Mean Corpuscular Hemoglobin 31 pg (27-31); Mean Corpuscular Volume 94 fL (80-94); Mean Platelet Volume 7.8 fL (7.4-10.4); Platelet Count 175 10^3/uL (150-450); Red Blood Count 3.96 10^6 /uL (4.18-5.48); Red Cell Distribution Width 14 % (10-15); White Blood Count 8.4 10^3/uL (3.5-10.8)
[2019-12-25 15:46] LABS: Albumin 3.4 g/dL (3.2-5.2); Albumin/Globulin Ratio 1.4 (1-3); BUN/Creatinine Ratio 21.3 (8-20); Calcium 7.8 mg/dL (8.6-10.3); EGFR Non-African American 76.8 (>60); Globulin 2.5 g/dL (2-4); Magnesium 1.7 mg/dL (1.9-2.7); Phosphorus 3.7 mg/dL (2.5-5.0); Potassium 4.1 mmol/L (3.5-5.0); Total Bilirubin 0.3 mg/dL (0.2-1.0); Total Protein 5.9 g/dL (6.4-8.9)
[2019-12-25 15:55] LABS: Urine Appearance Cloudy; Urine Bilirubin Negative (Negative); Urine Blood 2+ (Negative); Urine Color Yellow; Urine Glucose Negative (Negative); Urine Ketones Negative (Negative); Urine Nitrite Negative (Negative); Urine Protein 1+(30 mg/dL) (Negative); Urine Specific Gravity 1.021 (1.010-1.030); Urine Urobilinogen Negative (Negative)
[2019-12-25 15:56] LABS: Urine Bacteria Absent (Absent); Urine Red Blood Cell 3+(>10/hpf) (Absent); Urine Squamous Epithelial Cell Present (Absent); Urine White Blood Cell Trace(0-5/hpf) (Absent)
--- NOTE | 2019-12-25 15:56 | HP ---
CRITICAL CARE ADMISSION NOTE: DATE OF ADMISSION: 12/25/19 HISTORY OF PRESENT ILLNESS: The patient is an 84-year-old male with past medical history significant for hypertension, hyperlipidemia who is seen immediately postop from right foot surgery initially performed under monitored anesthesia care ultimately with LMA, who has been slow to arouse postprocedure. He seemed to behave most consistent with a prolonged paralytic state. 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 The anesthesia cart has been gone through extensively to assure that the patient received the charted meds, which only included a small dose of succinylcholine and ultimately 2 of Versed after he began to arouse, but still was too weak to be extubated. He now arrives in the ICU orotracheally intubated with fairly good mechanics. He is beginning to arouse. He raises his eyebrows for me. Pupils were tight. He does have tone and is beginning to show us some movements peripherally. He is oxygenating well on 50%. We are ordering a chest x-ray to confirm tube placement. He gives a general appearance of a patient who needs just a little bit more time to wake up more fully and now woke off a little bit of Versed he has received for his comfort. PAST MEDICAL HISTORY: Significant for hypertension, hyperlipidemia, osteoarthritis. PAST SURGICAL HISTORY: Remarkable for bilateral shoulder, bilateral knee, left hip replacement, Dupuytren's contracture release bilaterally, right foot surgery. He has undergone what is noted as some cardiac procedures. I suspect by history it is stenting and/or cardiac cath. MEDICATIONS: Medication list included: 1. Metoprolol. 2. Prilosec. 3. Tamsulosin. 4. Levocetirizine. 5. Tylenol. 6. Aspirin. 7. Aleve. 8. Sumatriptan. 9. Dicyclomine. 10. Benadryl. 11. Drysol. 12. Metamucil. 13. Fish oil. 14. Unisom. ALLERGIES: No known drug allergies. FAMILY HISTORY: His father due to cancer, mother due to Alzheimer's disease. SOCIAL HISTORY: He is , lives with his . He is retired. He is a former smoker. Has a beer or 2 a day. REVIEW OF SYSTEMS: Unobtainable. PHYSICAL EXAMINATION GENERAL: He is a well-developed, robust white male, appearing slightly younger than his recorded age. VITAL SIGNS: Currently has blood pressure of 130/70; satting in the 90s on 50% FiO2 on assist control on the ventilator, then switched over to CPAP, moving volumes between 1600 and 1000 now on 5/5; heart rate in the 60s; spontaneous respiratory rate in the high teens to low 20s. HEENT: Normocephalic, atraumatic. Pupils equal, constricted, but reactive to light. NECK: Supple, nontender, without JVD. LUNGS: Clear bilaterally. HEART: S1, S2. Regular. ABDOMEN: Soft, nondistended, not apparently tender. Bowel sounds intact. EXTREMITIES: Lower extremities: The right is cleanly dressed and wrapped in an Tarik bandage. Left is perfused. No edema. NEUROLOGIC: He remains sedated, though does raise eyebrows to loud voice when I address him by name. DIAGNOSTIC STUDIES/LAB DATA: Laboratory evaluations will be drawn. Chest x-ray is pending. ASSESSMENT AND PLAN: This is an 84-year-old male with past medical history of hypertension, hyperlipidemia, who presents for elective right foot surgery and seems to have prolonged neuromuscular blockade. Despite having had multiple procedures in the past, this is new according to the patient's . The diagnosis of pseudocholinesterase deficiency has been entertained as has the possibility of other medications having been mistakenly administered, not only does the anesthesia cart checkout, but all appropriate reversal drugs have been given with no effect. At this time, he does seem to be improving. He had improved enough from a mentation standpoint that he required light sedation with 2 of Versed, to get him through what we anticipate to be an extra hour or so before he has the muscular capacity to be extubated. We will follow up on his chest x-ray as well as his labs to assure there is nothing there . It does not seem to be focal. He does seem to respond to my voice. I am not overly concerned that a CT of his head is indicated at this time, but if things continue to lag or he shows me some focality, then certainly we can go in that direction. TIME SPENT: The aggregate time providing critical care as well as discussing the case with multiple other attendings both from Anesthesia as well as Orthopedic Surgery and reviewing the medical record has thus far exceeded 30 minutes. [id number]/[facility] #: [id number] JACKIE
[2019-12-25] MEDS: ceFAZolin 1 GM ADVAN(*) 1 GM in NS 0.9% 50 ML* 50 ML IVPB SCH (20:05)
[2019-12-25] MEDS: oxyCODONE/Acetamin 5/325 MG* TAB PO PRN (20:06)
[2019-12-25] MEDS: Magnesium Hydroxide LIQ* 30 ML UDC PO SCH (20:44)
[2019-12-25] MEDS ORDERED: Cetirizine* 10 MG TAB PO SCH (21:00)
[2019-12-25] MEDS ORDERED: Tamsulosin CAP* 0.4 MG PO SCH (21:00)
[2019-12-25] MEDS ORDERED: Metoprolol Succinate XL TAB* 50 MG PO SCH (21:00)
[2019-12-25] MEDS ORDERED: Pantoprazole TAB * 40 MG TAB PO SCH (21:00)
[2019-12-25] MEDS: Docusate CAP* 100 MG PO SCH (21:19)
[2019-12-25] MEDS ORDERED: Magnesium Sulfate 2 GM IV* 2 GM/50 ML BAG IVPB ONE (21:27)
[2019-12-25] MEDS: Acetaminophen TAB* 325 MG PO SCH (22:04)
[2019-12-26] MEDS: oxyCODONE/Acetamin 5/325 MG* TAB PO PRN ×5 (01:57→17:35)
--- NOTE | 2019-12-26 03:32 | OP ---
DATE OF OPERATION: 12/25/19 - ROOM #333 DATE OF : 39 SURGEON: Jerald Matthews MD HAZ TECH: Dequan Bailon PA-C PRE-OP DIAGNOSES: Right first tarsometatarsal joint arthritis, prominent metatarsophalangeal joint right 2nd, 3rd, and 4th toes with the fixed hammertoes. POST-OP DIAGNOSES: Right first tarsometatarsal joint arthritis, prominent metatarsophalangeal joint right 2nd, 3rd, and 4th toes with the fixed hammertoes. OPERATIVE PROCEDURE: First TMT joint fusion right foot, metatarsal head excisions 2, 3, and 4, and manipulation 2nd, 3rd, and 4th toes and pinning. DESCRIPTION OF PROCEDURE: The patient was taken to the operating room where 2 longitudinal incisions were made at the web spaces 2, 3, and 4. The capsulotomies were performed, and after sweeping the extensor tendons to the side and the metatarsal head excised with the microsagittal saw at the neck- head junction, each metatarsal head was removed and then we gently manipulated the toes into full extension at the PIP joint pinning them longitudinally with the 0.62 C-wires. The first TMT joint was then approached dorsomedially with longitudinal incision 6 cm in length. The joint capsule was taken down at the first TMT joint. It was noted to be arthritic. We used a power zamzam to remove the cartilage which was scant and then the subchondral bone which we harvested with the bone suction unit. After irrigating thoroughly at the end and noting good rough bone surfaces, we pinned the joint with crossed 3.5 mm cannulated screws and fixed a 1/3 recon plate along the dorsomedial aspect fixed with a combination of cortical and non-cortical screws. At this point, x-rays were taken and showed satisfactory position of the hardware except 2 screws which were exchanged for shorter ones. We irrigated 3 wounds closing with 3-0 Monocryl, nylon for the skin and a compression dressing plaster splint applied. [id number]/[facility] #: [id number] [facility] NURSING FACILITYIvonne
[2019-12-26] MEDS: ceFAZolin 1 GM ADVAN(*) 1 GM in NS 0.9% 50 ML* 50 ML IVPB SCH ×2 (03:59→12:19)
[2019-12-26] MEDS: Acetaminophen TAB* 325 MG PO SCH ×2 (06:05→13:41)
[2019-12-26] MEDS: Lactated Ringers 1000 ML Bag* 1,000 ML IV SCH (06:34)
[2019-12-26] MEDS: Magnesium Hydroxide LIQ* 30 ML UDC PO SCH (08:48)
[2019-12-26] MEDS: Docusate CAP* 100 MG PO SCH (08:49)
[2019-12-26] MEDS ORDERED: Enoxaparin(*) 30 MG/0.3 ML SYR SUBCUT SCH (12:00)
--- NOTE | 2019-12-26 14:53 | PN ---
Progress Note - Progress Note Date of Service: 12/26/19 SOAP: Subjective: POD #1 Right midfoot fusion, MT head resections. Doing ok, pain improving with increase in Percocet. Also reports muscle spasms in leg. Denies CP/SOB, f/c or calf pain at this time. Objective: Vital Signs: Temp Pulse Resp BP Pulse Ox 99.1 F 58 16 121/52 96 12/26/19 11:25 12/26/19 11:25 12/26/19 13:44 12/26/19 11:25 12/26/19 11:25 Gen: A&Ox3, NAD at rest sitting in chair RLE: Splint and dressing C/D/I. + sensation to toes. Upper calf soft, NT Assessment: POD #1 Right midfoot fusion, MT head resections Plan: NWB RLE with crutches or walker Percocet for pain Ortho to follow while admitted
--- NOTE | 2019-12-26 17:02 | PN ---
Subjective Date of Service: 12/26/19 Interval History: Patient reports mild pain to right foot, controlled with pain medications. Denies chest pain or shortness of breath. Denies lightheadedness. Denies fever or chills. 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 Family History: Unchanged from Admission Social History: Unchanged from Admission Past Medical History: Unchanged from Admission Objective Active Medications: Acetaminophen (Tylenol Tab*) 975 mg PO Q8HR [facility] Last Admin: 12/26/19 13:41 Dose: Not Given Bisacodyl (Dulcolax Supp*) 10 mg IN DAILY PRN PRN Reason: CONSTIPATION Cetirizine HCl (Zyrtec*) 10 mg PO BEDTIME [facility] Last Admin: 12/25/19 20:45 Dose: 10 mg Cyclobenzaprine HCl (Flexeril Tab*) 10 mg PO Q6H PRN PRN Reason: SPASMS Last Admin: 12/26/19 08:48 Dose: 10 mg Dicyclomine HCl (Bentyl Cap*) 10 mg PO TID PRN PRN Reason: IBS Diphenhydramine HCl (Benadryl Iv*) 25 mg IV Q6H PRN PRN Reason: PRURITIS Diphenhydramine HCl (Benadryl Po*) 25 mg PO Q6H PRN PRN Reason: PRURITIS Docusate Sodium (Colace Cap*) 100 mg PO BID [facility] Last Admin: 12/26/19 08:49 Dose: 100 mg Enoxaparin Sodium (Lovenox(*)) 40 mg SUBCUT Q24H [facility] Lactated Ringer's (Lactated Ringers 1000 Ml Bag*) 1,000 mls @ 100 mls/hr IV PER RATE [facility] Last Admin: 12/26/19 06:34 Dose: 100 mls/hr Lactulose (Lactulose*) 30 ml PO BID PRN PRN Reason: CONSTIPATION Magnesium Hydroxide (Milk Of Magnesia Liq*) 30 ml PO BID [facility] Last Admin: 12/26/19 08:48 Dose: 30 ml Magnesium Hydroxide (Milk Of Magnesia Liq*) 30 ml PO Q6H PRN PRN Reason: CONSTIPATION Metoprolol Succinate (Toprol Xl Tab*) 25 mg PO BEDTIME [facility] Morphine Sulfate (Morphine Inj (Syringe))*) 2 mg IV Q4H PRN PRN Reason: Pain - Unrelieved Last Admin: 12/26/19 05:56 Dose: 2 mg Ondansetron HCl (Zofran Odt Tab*) 4 mg PO Q6H PRN PRN Reason: NAUSEA Oxycodone/Acetaminophen (Percocet 5/325 Tab*) 1 tab PO Q4H PRN PRN Reason: PAIN - MODERATE Last Admin: 12/26/19 08:50 Dose: 1 tab Oxycodone/Acetaminophen (Percocet 5/325 Tab*) 2 tab PO Q4H PRN PRN Reason: PAIN - SEVERE Last Admin: 12/26/19 13:44 Dose: 2 tab Pantoprazole Sodium (Protonix Tab*) 40 mg PO BEDTIME [facility] Last Admin: 12/25/19 20:44 Dose: 40 mg Polyethylene Glycol/Electrolytes (Miralax (17 Gm Dose Kyler)) 17 gm PO DAILY PRN PRN Reason: Constipation Tamsulosin HCl (Flomax Cap*) 0.4 mg PO BEDTIME [facility] Last Admin: 12/25/19 20:44 Dose: 0.4 mg Temazepam (Restoril Cap*) 15 mg PO BEDTIME PRN PRN Reason: INSOMNIA Tramadol HCl (Ultram*) 50 mg PO Q6HR PRN PRN Reason: PAIN - MODERATE Last Admin: 12/25/19 18:37 Dose: 50 mg Vital Signs - 8 hr 12/26/19 12/26/19 12/26/19 09:34 10:50 11:25 Temperature 99.1 F Pulse Rate 58 Respiratory 16 16 16 Rate Blood Pressure 121/52 (mmHg) O2 Sat by Pulse 96 Oximetry 12/26/19 12/26/19 12/26/19 11:35 13:44 15:01 Temperature 97.5 F Pulse Rate 61 Respiratory 16 16 16 Rate Blood Pressure 119/49 (mmHg) O2 Sat by Pulse 95 Oximetry Oxygen Devices in Use Now: None Appearance: appears comfortable resting in chair - no acute distress Eyes: No Scleral Icterus Ears/Nose/Mouth/Throat: Clear Oropharnyx, Mucous Membranes Moist Neck: NL Appearance and Movements; NL JVP, Trachea Midline Respiratory: Symmetrical Chest Expansion and Respiratory Effort, Clear to Auscultation Cardiovascular: NL Sounds; No Murmurs; No JVD, No Edema Abdominal: NL Sounds; No Tenderness; No Distention Extremities: No Edema, No Clubbing, Cyanosis Skin: No Rash or Ulcers Neurological: Alert and Oriented x 3 Nutrition: Taking PO's Result Diagrams: 12/25/19 15:18 12/25/19 15:18 Assess/Plan/Problems-Billing Assessment: - Patient Problems (1) Status post right foot surgery Current Visit: Yes Status: Acute Code(s): Z98.890 - OTHER SPECIFIED POSTPROCEDURAL STATES SNOMED Code(s): 397838154 Comment: management per ortho - patient with prolonged sedation post -op resolved- required intubation briefly and was placed in the ICU- extubated and had no issues overnight - able to maintain oxygen saturations on room air (2) Bradycardia Current Visit: Yes Status: Acute Code(s): R00.1 - BRADYCARDIA, UNSPECIFIED SNOMED Code(s): 77009820 Comment: asymptomatic known hx of LBBB and PVC's tele with olesya - reviewed with cardiology - nv for outpatient work up - should follow up with his metal tile setter this week- for possible holter monitor (3) HTN (hypertension) Current Visit: Yes Status: Acute Code(s): I10 - ESSENTIAL (PRIMARY) HYPERTENSION SNOMED Code(s): 24948369 Comment: continue metoprolol - decreased dose to 25 mg until follow up with cardiology (4) DVT prophylaxis Current Visit: Yes Status: Acute Code(s): Z29.9 - ENCOUNTER FOR PROPHYLACTIC MEASURES, UNSPECIFIED SNOMED Code(s): 005656160 Comment: lovenox (5) Full code status Current Visit: Yes Status: Acute Code(s): Z78.9 - OTHER SPECIFIED HEALTH STATUS SNOMED Code(s): 592110606 Status and Disposition: discharge home
[2019-12-26 20:01] VITALS: BP 152/69
[2019-12-26] MEDS ORDERED: Metoprolol Succinate XL TAB* 25 MG PO SCH ×3 (21:00)
[2019-12-27] MEDS ORDERED: Enoxaparin(*) 40 MG/0.4 ML SYR SUBCUT SCH (12:00)
--- NOTE | 2019-12-28 10:48 | DS ---
DISCHARGE SUMMARY: DATE OF ADMISSION: 12/25/19 DATE OF DISCHARGE: 12/26/19 SURGEON: Jerald Matthews MD.* (DICTATED BY SARAH BOURGEOIS) PRINCIPAL DIAGNOSIS: Right first tarsometatarsal joint arthritis. DISCHARGE DIAGNOSIS: Right first tarsometatarsal joint arthritis. DISCHARGE DISPOSITION: Discharged home in stable condition. HISTORY OF PRESENT ILLNESS: Mr. Mcnamara is an 84-year-old gentleman with first tarsometatarsal joint osteoarthritis. He elected to proceed with surgery. HOSPITAL COURSE: Mr. Mcnamara is an 84-year-old gentleman admitted electively to the hospital on 12/25/19 and underwent a first TMT joint fusion right foot, metatarsal head excision 2, 3, and 4 and manipulation second, third, and fourth toes and pinning with Dr. Matthews. Postoperatively, he had multiple episodes of bradycardia and he was kept overnight on telemetry. On postoperative day 1, he was afebrile. His vital signs were stable and he was cleared by Medicine to go home. PHYSICAL EXAM UPON DISCHARGE: He was afebrile. His vital signs were stable. The wound was clean and dry. The splint was intact. He was able to wiggle his toes. DISCHARGE MEDICATIONS: 1. He was given oxycodone 5 mg tabs, 1 tab every 4 to 6 hours as needed for pain. 2. Zyrtec 10 mg q.h.s. 3. Aspirin 81 mg daily. 4. Metoprolol 50 mg daily. 5. Flomax 0.4 mg daily. 6. Restoril 15 mg q.h.s. DISCHARGE INSTRUCTIONS: He was discharged home. He was given oxycodone 5 mg tabs to take every 4 to 6 hours for pain. He will remain nonweightbearing on the operative leg. Keep the splint clean, dry, and intact until his postop visit with Dr. Matthews in 7 to 10 days. It was also recommended he follow up with his hardwood floor finisher as an outpatient for a possible Holter monitor. SARAH BOURGEOIS [id number]/CPS #: [id number] MTDD
== END 2019-12-26 20:03 | disposition home or self-care (01) | DRG 505 ==
LOC: OR 09:24 → ICU 14:01 → SSU 16:40
PROVIDERS: ADMIT Orthopaedic Surgery; ATTEND Orthopaedic Surgery
PROC: 0SGK07Z Fusion of Right Tarsometatarsal Joint with Autologous Tissue Substitute, Open Approach (ICD-10-PCS; principal; 2019-12-25 11:15)
DX: 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, right ankle and foot (principal); M20.41 Other hammer toe(s) (acquired), right foot; I10 Essential (primary) hypertension; E78.5 Hyperlipidemia, unspecified; Z96.653 Presence of artificial knee joint, bilateral; Z96.612 Presence of left artificial shoulder joint; Z96.611 Presence of right artificial shoulder joint; Z96.642 Presence of left artificial hip joint; R00.1 Bradycardia, unspecified; I44.7 Left bundle-branch block, unspecified; M62.838 Other muscle spasm; K21.9 Gastro-esophageal reflux disease without esophagitis; G43.909 Migraine, unspecified, not intractable, without status migrainosus; Z79.82 Long term (current) use of aspirin; Z79.899 Other long term (current) drug therapy; Z87.891 Personal history of nicotine dependence
CPT/HCPCS: 36415; 71045; 76000; 80053; 81003; 81015; 82330; 83735; 84100; 85027; 87086; 93005; 94002; 94660; A9270-GY; C1713; C1776; J0690; J1650; J2250; J2270; J2704; J3475